=== PATIENT | female | born 1955 | race Caucasian/White ===

== ENCOUNTER 2023-08-07 23:52 | Inpatient (IN) | payer OTHER, SELFPAY ==
[2023-08-07 17:24] VITALS: BMI 27.9
[2023-08-07 17:28] VITALS: BP 188/106
--- NOTE | 2023-08-07 19:14 | ED.GENMED ---
History of Present Illness
General
Chief Complaint: Abdominal Pain
Source: patient
Exam Limitations: none
Time Seen by Provider: 08/07/23 18:46
Travel History
Have you had any contact with someone who has COVID-19?: No
Do you have any symptoms of coronavirus? Fever > 100 degrees, chills, cough, shortness of breath, sore throat, loss of taste or smell, muscle aches, or headache?: No
History of Present Illness
History of Present Illness:
This is a 67 year old female that comes in with c/o abd pain. State that she had a root canal and was on antibiotics. States that at first she was started on Clindamycin and this caused her to have diarrhea. States that she started that on July 24.
Then she was given Amoxicillin on July 29. States that she did stop the antibiotic on Friday. States that she is also on the [place] diet and she eat a replacement bar yesterday and some Crackers with cheese. Today she has diarrhea and it just
continued. States that she has a low grade fever and abd pain. States that her temp was 99.8 at home and she felt cold. States that she was also nauseated. Denies any chest pain, SOB, vomiting, headache, dizziness, urinary burning.
Past History
Past History
ED Past Medical History: Cancer (Skin cancer squamous), HTN and Other (DDD, diverticulitis, osteoarthritis, UTi, Shingles, )
ED Past Surgical History: Gynecological (Tubal ), Orthopedic (right femur repair, Right Total hip replacement ) and Other (Left arm lump removed)
Social History
Tobacco: Former smoker
Alcohol: Daily ( Rum mixed with Diet soda in a 22oz glasses. states that this is about 6oz)
Personal:
Living: with family
Employment: Employed
Family History
Family History: Other (Noncontributory)
Review of Systems
Review of Systems
All Other Systems: ROS reviewed and negative except as documented in HPI and ROS
Constitutional: Reports fever; Denies chills
EENT: Reports no symptoms
Respiratory: Reports no symptoms; Denies cough or trouble breathing
Cardiac: Reports no symptoms; Denies chest pain
ABD/GI: Reports abdominal pain, nausea and diarrhea; Denies vomiting
: Reports no symptoms; Denies dysuria, frequency or urgency
Musculoskeletal: Reports no symptoms
Skin: Reports no symptoms
Neurological: Reports no symptoms; Denies dizzy or headache
Psychiatric: Reports no symptoms
Phy Exam
General Physical Exam
General Presentation: well appearing and no apparent distress
General age: appears stated age
General Skin: warm and dry
General Habitus: normal
General Mental: alert
General Hydration: appears well hydrated
ENT Exam
ENT Exam: TM's normal, pharynx normal and neck supple
Eye Exam
Eye Exam: EOMI
Cardiovascular Exam
Cardiovascular Exam: regular rate/rhythm, no edema, no murmur and normal peripheral pulses
Pulmonary Exam
Pulmonary Exam: lungs clear, no respiratory distress, no rales, chest non tender, no crackles, no rhonchi, no wheezing and no cough
Gastrointestinal Exam
Gastrointestinal Exam: normal bowel sounds, soft, no organomegaly, no pulsatile mass, non distended and tender (Left lower abd tenderness with palpation)
Musculoskeletal Exam
Musculoskeletal Exam: no edema
Skin Exam
Skin Exam: normal color, warm/dry, no rash and no petechia
Psychiatric Exam
Psychiatric Exam: normal mood/affect
Course
Orders/Labs/Results
Orders:
Orders
08/07/23 17:32
EKG [Electrocardiogram (*1)] Urgent
Reason for Study: Tachycardia
EKG- Treatment ONCE
08/07/23 19:13
CT Abd/pelvis W Iv Cont Urgent
Comment:
Reason For Exam: Left sided abd pain
08/07/23 19:14
0.9% Sodium Chloride 500 ml [Nss] 500 ml IV BOLUS
08/07/23 19:35
Complete Blood Count/With Diff Urgent
Comprehensive Metabolic Panel Urgent
08/07/23 19:37
STOOL [C difficile Antigen & Toxins] Urgent
GENNA Source: Feces/Stool
Specimen Description:
Date Specimen was Collected: 08/07/23
Time Specimen was Collected: 19:36
Stool Culture Urgent
GENNA Source: Feces/Stool
Specimen Description:
Date Specimen was Collected: 08/07/23
Time Specimen was Collected: 19:36
Stool For WBC Urgent
GENNA Source: Feces/Stool
Specimen Description:
Date Specimen was Collected: 08/07/23
Time Specimen was Collected: 19:36
Abnormal Lab Results
08/07/23
19:35
WBC 16.3 H 10^3/uL
(4.8-10.8)
RBC 3.67 L 10^6/uL
(4.20-5.40)
Hct 34.2 L %
(37.0-47.0)
MCH 33.5 H pg
(27.0-31.0)
Abs Immat Gran (auto) 0.1 H 10^3/uL
(0-0.05)
Absolute Neuts (auto) 15.1 H 10^3/uL
(1.4-6.5)
Absolute Lymphs (auto) 0.6 L 10^3/uL
(1.2-3.4)
Neutrophils % 92.5 H %
(42.2-75.2)
Lymphocytes % 3.4 L %
(20.5-51.1)
Sodium 130 L mmol/L
(135-145)
Chloride 94 L mmol/L
(98-107)
Creatinine 0.5 L mg/dL
(0.6-1.0)
Glucose 118 H mg/dl
(70-99)
Calcium 11.0 H mg/dl
(8.4-10.2)
AST 51 H U/L
(14-36)
ALT 77 H U/L
(0-35)
08/07/23 19:35
08/07/23 19:35
Leukocytosis, H/h slightly low. Sodium low. Chloride low. glucose nonfasting. Calcium slightly elevated. AST/ALT elevation. Stool positive for C-diff
Vital Signs
Initial and Last Documented VS:
Initial Vital Signs
Temp Pulse Resp BP Pulse Ox
99.4 F 129 20 188/106 97
08/07/23 17:28 08/07/23 17:28 08/07/23 17:28 08/07/23 17:28 08/07/23 17:28
Last Documented Vital Signs
Temp Pulse Resp BP Pulse Ox
99.4 F 129 20 188/106 97
08/07/23 17:28 08/07/23 17:28 08/07/23 17:28 08/07/23 17:28 08/07/23 17:28
MDM/Problems Addressed
Differential Diagnosis Includes:
diverticulitis, Colitis, reaction to antibiotics, C-diff
MDM/Problems Addressed:
This is a 67 year old female that comes in with c/o abd pain. States that she was on antibiotic and then today she started with abd pain, diarrhea and a low grade fever.
Will get labs and CT scan. will give IV fluids.
Back into see patient. Explained that her WBC are elevated and that she does have C-diff. Her CT also shows that there may also be some acute diverticulitis in the sigmoid colon. Will admit patient for further treatment. Hospitalist notified.
Chronic conditions affecting care:
history of Diverticulitis
Acute Exacerbation and/or Progression of Chronic Illness:
NA
*Radiology
Radiology exam reviewed: radiology read reviewed (CT- Extensive colonic diverticulosis. Possible minimal superimposed acute diverticulitis with some faint fat stranding about the mid sigmoid colon)
*Pulse Oximetry
Patient hypoxic: no
*EKG
Interpreted by ED Provider?: Yes
Heart Rate: 121
Rate: tachycardiac
Rhythm: sinus
[place]: normal axis
Interval: normal interval
QRS Pattern: normal QRS
Ischemia: no ischemia
*Vessel Manager Interpretation
Rate: Vessel Manager- N/A
*Critical Care Note
Total Time (30-74mins, 75-104mins- exclusive of procedures): Not Applicable
ED Attending Note
-
Portions of this chart may have been created with voice recognition software.� Occasional wrong word or��sound alike� substitutions may have occurred due to the inherent limitations of voice recognition software.
Discharge Plan
Departure
Patient Disposition: Admit
Date of Disposition: 08/07/23
Time of Disposition: 22:48
Admit to: Med/Surg
Presentation/result/management discussed w/ accepting MD/DO: Hospitalist
Patient with high blood pressure during this ER visit?: Yes
Condition: Good
Covid-19: Not Applicable
Discharge Problem:
Abdominal pain, C-diff, possible Diverticulitis
Prescriptions:
No Action
ibuprofen 400 MG tablet
400 mg PO Q6HPRN PRN (Reason: pain)
levofloxacin 500 MG tablet
500 mg PO DAILY Qty: 9 0RF
metronidazole 500 MG tablet
500 mg PO TID Qty: 29 0RF
losartan 100 MG tablet
100 mg PO DAILY
Referrals:
Gonzalez Kwon MD [Family Provider] -
Interventions
Interventions:
*Risk Screen - Suicide Last Done: 08/07/23 17:28
*General Assessment Last Done: 08/07/23 17:28
*Neglect/Abuse Screening Last Done: 08/07/23 17:28
Discharge Date and Time
Print Language: FRENCH
[2023-08-07] MEDS: NSS 500 IV (19:36)
[2023-08-07 19:48] LABS: % Basophils 0.3 % (0-2); % Eosinophils 0.1 % (0-6); % Immature Granulocytes 0.4 % (0-0.5); % Lymphocytes 3.4 % (20.5-51.1); % Monocytes 3.3 % (1.7-9.3); % Neutrophils 92.5 % (42.2-75.2); Absolute Basophils 0.1 10^3/uL (0-0.2); Absolute Immature Granulocytes 0.1 10^3/uL (0-0.05); Absolute Lymphocytes 0.6 10^3/uL (1.2-3.4); Absolute Monocytes 0.5 10^3/uL (0.1-0.6); Absolute Neutrophils 15.1 10^3/uL (1.4-6.5); Hematocrit 34.2 % (37.0-47.0); Hemoglobin 12.3 g/dL (12.0-16.0); Mean Corpuscular Hgb 33.5 pg (27.0-31.0); Mean Corpuscular Volume 93.2 fL (81.0-99.0); Mean Platelet Volume 10.1 fL (7.4-10.4); Nucleated Red Blood Cells % 0 %; Platelet Count 200 10^3/uL (130-400); Red Blood Cell Count 3.67 10^6/uL (4.20-5.40); Red Cell Dist. Width 12.2 % (11.5-14.5); White Blood Cell Count 16.3 10^3/uL (4.8-10.8)
[2023-08-07 20:02] LABS: ALT (SGPT) 77 U/L (0-35); AST (SGOT) 51 U/L (14-36); Albumin 4.8 g/dl (3.5-5.0); Alkaline Phosphatase 60 U/L (38-126); Blood Urea Nitrogen 9 mg/dl (7-17); Carbon Dioxide 22 mmol/L (22-30); Chloride 94 mmol/L (98-107); Estimated Creatinine Clearance 93 ml/min; Glucose 118 mg/dl (70-99); Potassium 4.2 mmol/L (3.5-5.1); Sodium 130 mmol/L (135-145); Total Bilirubin 0.8 mg/dl (0.2-1.3); Total Protein 7.5 g/dl (6.3-8.2); eGFR > 60.00
[2023-08-07 20:15] VITALS: BP 176/87
[2023-08-07] MEDS: FIRVANQ 125 MG PO (23:39)
--- NOTE | 2023-08-07 23:54 | HPS.HSE ---
Family Physician
-
Family Physician: Gonzalez Kwon
Chief Complaint
-
Diarrhea
History of Present Illness
Patient is 67 years old female history of hypertension, diverticular disease, DJD, presented to the hospital with diarrhea. Patient had a root canal back in June and she was placed on antibiotics initially with clindamycin that she took from July 24
until July 28 and she had to stop the antibiotics because she developed diarrhea. She was then placed on amoxicillin from July 29 through August 02. Patient tells me she tolerated the last antibiotic well. She is on Atkins diet and she took some
macadamia bar and some candy and start developing diarrhea again associated with abdominal pain crampy in nature and diffuse. Watery mucousy diarrhea multiple times throughout the day. She also had some nausea and dry heaves. No fevers or chills.
No chest pain or shortness of breath. Here in the ER white blood cell count of 16, creatinine 0.5, sodium 130, and C. difficile positive. She had a CT scan that shows diverticulosis and possible minimal superimposed diverticulitis with some
stranding about the mid sigmoid colon. She was referred to hospitalist for further evaluation.
Medical History
Past Medical History
Past Medical History: Reports Other (Hypertension, osteoarthritis, diverticular disease, skin cancer in the past for squamous, shingles, UTI in the past.)
Past Surgical History: Reports Other (Tubal ligation, right femur repair, right total hip replacement, left arm lump removed.)
Social History
Tobacco: Former Smoker
Alcohol: Daily (She drinks rum every day and a 22 ounces glasses but she tells me she drinks about 4 glasses every day.)
Drug: None
Family History
Family History: Not pertinent
Allergies / Home Medications
Allergies reflects when Allergies were last updated in [employer].
Home Medications with original date entered in [employer]
Allergy/Medication List:
Allergies
Allergy/AdvReac Type Severity Reaction Status Date / Time
cephalexin [From Keflex] Allergy Rash Verified 08/07/23 17:32
clindamycin Allergy diarrhea Verified 08/07/23 22:48
venom-honey bee Allergy Swelling Verified 08/07/23 17:32
[bee venom (honey bee)]
Home Medications
losartan 100 mg tablet 100 mg PO DAILY 07/12/20
ibuprofen 200 mg capsule 400 mg PO Q6H PRN mild pain 08/07/23
Review of Systems
-
A 12 point ROS was completed and negative except as noted: Yes
Physical Exam
Vital Signs
Vital Signs
Temp Pulse Resp BP Pulse Ox
99.4 F 129 20 188/106 97
08/07/23 17:28 08/07/23 17:28 08/07/23 17:28 08/07/23 17:28 08/07/23 17:28
Physical exam:
General: Acutely ill but nontoxic
HEENT: Normocephalic, Atraumatic and dry mucous Membranes
Respiratory: Clear to Auscultation; Negative Wheezes, Rales or Rhonchi
Cardiac: Regular Rhythm and S1/S2
GI: Soft, Nontender and Nondistended
Musculoskeletal: No Clubbing, No Cyanosis and No Edema
Neuro: Awake, Alert and Oriented
Psych: Calm
Physical Exam
General: Other
Laboratory Results
-
08/07/23 19:35
08/07/23 19:35
Laboratory Results
Total Bilirubin 0.8 mg/dl (0.2-1.3) 08/07/23 19:35
AST 51 U/L (14-36) H 08/07/23 19:35
ALT 77 U/L (0-35) H 08/07/23 19:35
Alkaline Phosphatase 60 U/L (38-126) 08/07/23 19:35
Data Reviewed
-
CT Scan: Image Personally Visualized and interpreted
Lab Data: Labs Reviewed by me
Impression/Plan
-
IMPRESSION:
Patient is 67 years old female came into the hospital with acute diarrhea, C. difficile colitis. Patient had exposure to antibiotics prior to presentation. She needs to be in the hospital otherwise at increased risk of sepsis, worsening colitis,
and needs to be managed and monitored in the hospital.
PLAN:
C. difficile colitis:
Start oral vancomycin 125 mg every 6 hours
Monitor WBC trend
Monitor renal function
IV fluids
Possible diverticulitis:
Patient is concerned about starting other antibiotics such as IV ceftriaxone and Flagyl so hold off for now.
She understands that if leukocytosis worsens or if she exhibits pain or signs of toxicity, we will initiate more broad-spectrum antibiotics for short course.
Hyponatremia:
Most likely volume depleted related
IV fluids
Monitor sodium in a.m.
Mild hypercalcemia:
Monitor trend after IV fluids
Workup only if it would not trend down as expected
Mild elevated liver function test:
Trend in a.m.
Hypertension:
Labetalol 10 mg IV x 1
IV hydralazine as needed
Continue home doses of losartan 100 mg daily
Monitor blood pressure and adjust medications accordingly
Alcohol use disorder:
Start MSA protocol
Monitor behavior mental status and signs of withdrawal
DVT prophylaxis:
Lovenox 40 mg SQ daily
CODE STATUS:
Full code
Time spent: 75 minutes
[2023-08-08] MEDS: THIAMINE INJECTION 200 MG IV ×3 (00:24→20:25)
[2023-08-08] MEDS: TRANDATE 10 MG IV (00:25)
[2023-08-08 01:05] VITALS: BMI 27.1
[2023-08-08 01:14] VITALS: BP 172/90
[2023-08-08] MEDS: NSS 1000 IV ×3 (01:40→23:45)
--- NOTE | 2023-08-08 02:00 | TRANSFER ---
Pt admitted from ED to room 432. AAO x3. VSS. Pt walked from stretcher to bed with no assistance. Pt oriented to room and call smith placed within reach.
[2023-08-08] MEDS: FIRVANQ 125 MG PO ×4 (05:35→23:45)
[2023-08-08 07:30] VITALS: BP 175/91
--- NOTE | 2023-08-08 08:17 | W.PN.HOSP.TC ---
Today's Communication/Plan
-
see AP
Assessment / Plan
Assessment / Plan
HPI: 67 years old female history of hypertension, diverticular disease, DJD, presented to the hospital with diarrhea. Patient had a root canal back in June and she was placed on antibiotics initially with clindamycin that she took from July 24 until
July 28 and she had to stop the antibiotics because she developed diarrhea. She was then placed on amoxicillin from July 29 through August 02. Patient tells me she tolerated the last antibiotic well.
She is on Atkins diet and she took some macadamia bar and some candy and start developing diarrhea again associated with abdominal pain crampy in nature and diffuse. Watery mucousy diarrhea multiple times throughout the day. She also had some
nausea and dry heaves. No fevers or chills. No chest pain or shortness of breath.
In the ER, white blood cell count of 16, creatinine 0.5, sodium 130, and C. difficile positive.
She had a CT scan that shows diverticulosis and possible minimal superimposed diverticulitis with some stranding about the mid sigmoid colon. She was referred to hospitalist for further evaluation.
CT AP:
Extensive colonic diverticulosis. Possible minimal superimposed acute diverticulitis with some faint fat stranding about the mid sigmoid colon.
A/P:
# Sepsis POA due to C. difficile colitis
Started oral vancomycin 125 mg every 6 hours, cont for now
Monitor WBC trend
Monitor renal function
Cont IV fluids
Cont Full liquid diet and ADAT
Check blood Cx, follow stool culture that was sent, can Norovirus to r/o
# Possible diverticulitis
Patient is concerned about starting other antibiotics such as IV ceftriaxone and Flagyl, so hold off for now.
Monitor symptoms on PO vancomycin for now, if worsening, then may consider IV Abx to cover for possible diverticulitis
# Hyponatremia, most likely volume depleted related
IV fluids
Monitor sodium
# Mild hypercalcemia, most likely volume depleted related
Monitor trend after IV fluids
Workup only if it would not trend down as expected
# Mild elevated liver function test:
Trend
# Essential Hypertension
Labetalol 10 mg IV x 1
Continue home doses of losartan 100 mg daily
IV hydralazine as needed
Monitor blood pressure and adjust medications accordingly
# Alcohol use disorder:
Cont MSA protocol
Monitor behavior mental status and signs of withdrawal
DVT prophylaxis: Lovenox 40 mg SQ daily
CODE STATUS: Full code
DW RN
Anticipated Discharge: > 48 hours
Subjective/Interval History
-
Date of Service: August 08, 2023
Objective Data
-
Labs:
Laboratory Results
08/08/23
06:00
WBC Pending
Hgb Pending
Hct Pending
Plt Count Pending
Sodium Pending
Potassium Pending
Chloride Pending
Carbon Dioxide Pending
BUN Pending
Creatinine Pending
Glucose Pending
Calcium Pending
Total Bilirubin Pending
AST Pending
ALT Pending
Alkaline Phosphatase Pending
Vital Signs:
Vital Signs
Temp Pulse Resp BP Pulse Ox
37.4 C 100 20 172/90 97
08/07/23 17:28 08/08/23 01:14 08/08/23 01:14 08/08/23 01:14 08/08/23 01:14
Review of Systems
-
Abdomen/GI: Reports Diarrhea (watery diarrhea)
Physical Exam
-
General: Well Developed, Well Nourished, No Apparent Distress, Comfortable and Conversant; Negative Respiratory Distress
HEENT: Normocephalic, Atraumatic, Nose Appears Normal and Ears Appear Normal; Negative Oxygen
Respiratory: Clear to Auscultation and Non Labored Respirations; Negative Accessory Resp Muscle Use
Cardiac: Regular Rhythm and S1/S2
GI: Soft, Nontender, Nondistended and Normal Bowel Sounds
Skin: Warm and Dry
Neuro: Awake, Alert, Oriented, AO x 3 and Nonfocal/Grossly Intact
Psych: Calm and Intact Judgement/Insight
Data Reviewed
-
CT Scan: Report Reviewed by me
Labs: Labs Reviewed by me
[2023-08-08] MEDS: FOLVITE 1 MG PO (08:42)
[2023-08-08] MEDS: COZAAR 100 MG PO (08:42)
[2023-08-08] MEDS: MOTRIN 200 MG PO (08:43)
[2023-08-08 08:55] VITALS: BP 175/91
[2023-08-08 09:31] VITALS: BP 160/87
[2023-08-08 10:04] LABS: ALT (SGPT) 53 U/L (0-35); AST (SGOT) 32 U/L (14-36); Alkaline Phosphatase 56 U/L (38-126); Blood Urea Nitrogen 6 mg/dl (7-17); Calcium 9.3 mg/dl (8.4-10.2); Carbon Dioxide 23 mmol/L (22-30); Chloride 94 mmol/L (98-107); Direct Bilirubin 0.3 mg/dl (0.0-0.4); Estimated Creatinine Clearance 82 ml/min; Glucose 127 mg/dl (70-99); Potassium 3.7 mmol/L (3.5-5.1); Sodium 128 mmol/L (135-145); Total Bilirubin 0.5 mg/dl (0.2-1.3); Total Protein 6.5 g/dl (6.3-8.2); eGFR > 60.00
--- NOTE | 2023-08-08 14:08 | CM ---
Patient seen at bedside. Patient stated that she lives with her in a 2 story home. Patient has no DME and her PCP is Dr. Kwon, Patient uses the [facility] on [address] in [place]. Patient stated that she does not have any problems with
alcohol and does not need any supports for treatment. Patient plan is for discharge home with no needs.
Plan; home with no needs anticipated.
[2023-08-08] MEDS: MOTRIN 400 MG PO ×2 (14:54→21:13)
[2023-08-08 15:26] VITALS: BP 138/68
[2023-08-08] MEDS: LOVENOX 40 MG SC (17:41)
[2023-08-08 23:25] VITALS: BP 126/91
[2023-08-09 00:25] VITALS: BP 126/91
[2023-08-09] MEDS: HYDROCORTISONE 1% CREAM 1 APPLIC TOPICAL (03:40)
[2023-08-09] MEDS: MOTRIN 400 MG PO ×2 (03:41→10:34)
[2023-08-09] MEDS: FIRVANQ 125 MG PO ×3 (05:22→18:57)
[2023-08-09 06:18] LABS: % Basophils 0.4 % (0-2); % Eosinophils 1.9 % (0-6); % Immature Granulocytes 0.7 % (0-0.5); % Lymphocytes 9.7 % (20.5-51.1); % Monocytes 4.4 % (1.7-9.3); % Neutrophils 82.9 % (42.2-75.2); Absolute Eosinophils 0.2 10^3/uL (0-0.7); Absolute Immature Granulocytes 0.1 10^3/uL (0-0.05); Absolute Monocytes 0.4 10^3/uL (0.1-0.6); Absolute Neutrophils 8.2 10^3/uL (1.4-6.5); Mean Corp Hgb Conc. 34.5 g/dL (33.0-37.0); Mean Corpuscular Volume 95.7 fL (81.0-99.0); Mean Platelet Volume 10.6 fL (7.4-10.4); Nucleated Red Blood Cells % 0 %; Platelet Count 154 10^3/uL (130-400); Red Blood Cell Count 3.03 10^6/uL (4.20-5.40); Red Cell Dist. Width 12.5 % (11.5-14.5); White Blood Cell Count 9.9 10^3/uL (4.8-10.8)
[2023-08-09 06:33] LABS: ALT (SGPT) 36 U/L (0-35); AST (SGOT) 26 U/L (14-36); Alkaline Phosphatase 51 U/L (38-126); Blood Urea Nitrogen 3 mg/dl (7-17); Calcium 8.3 mg/dl (8.4-10.2); Carbon Dioxide 22 mmol/L (22-30); Chloride 103 mmol/L (98-107); Estimated Creatinine Clearance 82 ml/min; Glucose 94 mg/dl (70-99); Potassium 3.4 mmol/L (3.5-5.1); Sodium 134 mmol/L (135-145); Total Bilirubin 0.3 mg/dl (0.2-1.3); Total Protein 5.4 g/dl (6.3-8.2); eGFR > 60.00
[2023-08-09] MEDS: FOLVITE 1 MG PO (07:50)
[2023-08-09] MEDS: COZAAR 100 MG PO (07:50)
[2023-08-09] MEDS: KCL 270 MEQ IV (07:52)
[2023-08-09 07:53] LABS: Magnesium 1.4 mg/dl (1.6-2.3)
[2023-08-09] MEDS: THIAMINE INJECTION 200 MG IV ×2 (07:53→20:36)
[2023-08-09 07:55] VITALS: BP 144/84
--- NOTE | 2023-08-09 07:56 | W.PN.HOSP.TC ---
Today's Communication/Plan
-
see A/P
Assessment / Plan
Assessment / Plan
HPI: 67 years old female history of hypertension, diverticular disease, DJD, presented to the hospital with diarrhea. Patient had a root canal back in June and she was placed on antibiotics initially with clindamycin that she took from July 24 until
July 28 and she had to stop the antibiotics because she developed diarrhea. She was then placed on amoxicillin from July 29 through August 02. Patient tells me she tolerated the last antibiotic well.
She is on Atkins diet and she took some macadamia bar and some candy and start developing diarrhea again associated with abdominal pain crampy in nature and diffuse. Watery mucousy diarrhea multiple times throughout the day. She also had some
nausea and dry heaves. No fevers or chills. No chest pain or shortness of breath.
In the ER, white blood cell count of 16, creatinine 0.5, sodium 130, and C. difficile positive.
She had a CT scan that shows diverticulosis and possible minimal superimposed diverticulitis with some stranding about the mid sigmoid colon. She was referred to hospitalist for further evaluation.
CT AP:
Extensive colonic diverticulosis. Possible minimal superimposed acute diverticulitis with some faint fat stranding about the mid sigmoid colon.
A/P:
# Sepsis POA due to C. difficile colitis
# first episode of C. diff colitis
Cont oral vancomycin 125 mg every 6 hours
Leucocytosis has resolved, clinically improving with more formed stool
Advance diet from Full liquid to low cholesterol
Follow blood Cx and stool culture that were sent
# Hypokalemia
# hypomagnesemia
replete lytes
# Less likely diverticulitis although suggested on CT AP
# h/o recurrent diverticulitis
GI symptoms improving on PO vancomycin targeting C diff
recc to follow up outpt GI for C scope eval due to h/o recurrent diverticulitis
# Hyponatremia, most likely volume depleted related, improving
Monitor sodium
# Mild hypercalcemia 2/2 volume depletion, resolved
# Mild elevated liver function test, improving
Trend
# Essential Hypertension
Labetalol 10 mg IV x 1
Continue home doses of losartan 100 mg daily
IV hydralazine as needed
Monitor blood pressure and adjust medications accordingly
# Alcohol use disorder
Cont MSA protocol
Monitor behavior mental status and signs of withdrawal
DVT prophylaxis: Lovenox 40 mg SQ daily
CODE STATUS: Full code
Anticipated Discharge: 24 - 48 hours
Subjective/Interval History
-
Date of Service: August 09, 2023
Objective Data
-
Labs:
Laboratory Results
08/09/23
04:59
WBC 9.9
Hgb 10.0 L
Hct 29.0 L
Plt Count 154 D
Sodium 134 L
Potassium 3.4 L
Chloride 103
Carbon Dioxide 22
BUN 3 L
Creatinine 0.5 L
Glucose 94
Calcium 8.3 L
Total Bilirubin 0.3
AST 26
ALT 36 H
Alkaline Phosphatase 51
Vital Signs:
Vital Signs
Temp Pulse Resp BP Pulse Ox
37.6 C 95 18 126/91 95
08/08/23 23:25 08/08/23 23:25 08/08/23 23:25 08/08/23 23:25 08/08/23 23:25
I&O
08/08/23 08/09/23 08/10/23
06:59 06:59 06:59
Intake Total 840 / 840
Balance 840 / 840
Review of Systems
-
Abdomen/GI: Reports Diarrhea (stool more formed, now pudding like )
Physical Exam
-
General: Well Developed, Well Nourished, No Apparent Distress, Comfortable and Conversant; Negative Respiratory Distress
HEENT: Normocephalic, Atraumatic, Nose Appears Normal and Ears Appear Normal; Negative Oxygen
Respiratory: Clear to Auscultation and Non Labored Respirations; Negative Accessory Resp Muscle Use
Cardiac: Regular Rhythm and S1/S2
GI: Soft, Nontender, Nondistended and Normal Bowel Sounds
Skin: Warm and Dry
Neuro: Awake, Alert, Oriented, AO x 3 and Nonfocal/Grossly Intact
Psych: Calm and Intact Judgement/Insight
Data Reviewed
-
CT Scan: Report Reviewed by me
Labs: Labs Reviewed by me
--- NOTE | 2023-08-09 08:05 | PTCARENOTE ---
pt aox3, denies anciety. says she slept well. satates that abd craping continues, stool is less loose and appears o be ore formed. pt olerating full liq diet tis am. see mar. pt resting
[2023-08-09] MEDS: REFRESH EYE DROPS (PF) 1 DROPS OPHTH (11:33)
[2023-08-09] MEDS: ZYRTEC 10 MG PO (11:33)
[2023-08-09] MEDS: MAGNESIUM SULFATE 50 IV (11:45)
--- NOTE | 2023-08-09 13:03 | PTCARENOTE ---
pt itchy le, right eye with puffy, appears to be fluid filled sac under right eye. warm compress given for eye. md trejo aware, zyrtec and prednisone ordered by . pt resting
[2023-08-09] MEDS: NSS IV (14:28)
[2023-08-09 15:50] VITALS: BP 141/68
[2023-08-09] MEDS: LOVENOX 40 MG SC (18:17)
[2023-08-09] MEDS: REFRESH EYE DROPS (PF) OPHTH ×2 (18:21→22:25)
[2023-08-09 23:00] VITALS: BP 139/72
[2023-08-10] MEDS: FIRVANQ 125 MG PO ×2 (00:05→05:43)
[2023-08-10 06:31] LABS: % Basophils 0.4 % (0-2); % Eosinophils 2.6 % (0-6); % Immature Granulocytes 0.5 % (0-0.5); % Lymphocytes 15.9 % (20.5-51.1); % Monocytes 6.7 % (1.7-9.3); % Neutrophils 73.9 % (42.2-75.2); Absolute Eosinophils 0.2 10^3/uL (0-0.7); Absolute Lymphocytes 1.2 10^3/uL (1.2-3.4); Absolute Monocytes 0.5 10^3/uL (0.1-0.6); Absolute Neutrophils 5.7 10^3/uL (1.4-6.5); Hematocrit 29.7 % (37.0-47.0); Hemoglobin 10.5 g/dL (12.0-16.0); Mean Corp Hgb Conc. 35.4 g/dL (33.0-37.0); Mean Corpuscular Hgb 33.3 pg (27.0-31.0); Mean Corpuscular Volume 94.3 fL (81.0-99.0); Mean Platelet Volume 10.4 fL (7.4-10.4); Nucleated Red Blood Cells % 0 %; Platelet Count 192 10^3/uL (130-400); Red Blood Cell Count 3.15 10^6/uL (4.20-5.40); Red Cell Dist. Width 12.4 % (11.5-14.5); White Blood Cell Count 7.7 10^3/uL (4.8-10.8)
[2023-08-10 07:00] VITALS: BP 159/80
[2023-08-10 07:06] LABS: ALT (SGPT) 37 U/L (0-35); AST (SGOT) 29 U/L (14-36); Albumin 3.4 g/dl (3.5-5.0); Alkaline Phosphatase 54 U/L (38-126); Blood Urea Nitrogen 3 mg/dl (7-17); Calcium 8.7 mg/dl (8.4-10.2); Carbon Dioxide 25 mmol/L (22-30); Chloride 104 mmol/L (98-107); Estimated Creatinine Clearance 82 ml/min; Glucose 98 mg/dl (70-99); Magnesium 1.9 mg/dl (1.6-2.3); Potassium 3.9 mmol/L (3.5-5.1); Sodium 135 mmol/L (135-145); Total Bilirubin 0.3 mg/dl (0.2-1.3); Total Protein 5.9 g/dl (6.3-8.2); eGFR > 60.00
[2023-08-10] MEDS: COZAAR 100 MG PO (08:31)
[2023-08-10] MEDS: FOLVITE 1 MG PO (08:34)
[2023-08-10] MEDS: ZYRTEC PO (08:34)
[2023-08-10] MEDS: THIAMINE INJECTION 200 MG IV (08:35)
[2023-08-10] MEDS: REFRESH EYE DROPS (PF) OPHTH (08:35)
[2023-08-10] MEDS: MOTRIN 400 MG PO (08:39)
--- NOTE | 2023-08-10 10:01 | W.PN.HOSP.TC ---
Addendum entered and electronically signed by Najma Palomares MD 08/10/23 15:32:
total DC time 35 min
Original Note:
Today's Communication/Plan
-
DC home
Assessment / Plan
Assessment / Plan
HPI: 67 years old female history of hypertension, diverticular disease, DJD, presented to the hospital with diarrhea. Patient had a root canal back in June and she was placed on antibiotics initially with clindamycin that she took from July 24 until
July 28 and she had to stop the antibiotics because she developed diarrhea. She was then placed on amoxicillin from July 29 through August 02. Patient tells me she tolerated the last antibiotic well.
She is on Atkins diet and she took some macadamia bar and some candy and start developing diarrhea again associated with abdominal pain crampy in nature and diffuse. Watery mucousy diarrhea multiple times throughout the day. She also had some
nausea and dry heaves. No fevers or chills. No chest pain or shortness of breath.
In the ER, white blood cell count of 16, creatinine 0.5, sodium 130, and C. difficile positive.
She had a CT scan that shows diverticulosis and possible minimal superimposed diverticulitis with some stranding about the mid sigmoid colon. She was referred to hospitalist for further evaluation.
CT AP:
Extensive colonic diverticulosis. Possible minimal superimposed acute diverticulitis with some faint fat stranding about the mid sigmoid colon.
A/P:
# Sepsis POA due to C. difficile colitis
# first episode of C. diff colitis
Cont oral vancomycin 125 mg every 6 hours for 10 days total
Leucocytosis has resolved, clinically improving with more formed stool
Advance diet to solid and pt tolerated well
blood Cx, stool culture so far negative (Shiga toxin pending, but do not anticipate it would turn positive)
# Hypokalemia
# hypomagnesemia
repleted lytes
# Less likely diverticulitis although suggested on CT AP
# h/o recurrent diverticulitis
GI symptoms improving on PO vancomycin targeting C diff
recc to follow up outpt GI for C scope eval due to h/o recurrent diverticulitis
# Hyponatremia, most likely volume depleted related, resolved
# Mild hypercalcemia 2/2 volume depletion, resolved
# Mild elevated liver function test, improving
Trend
# Essential Hypertension
Labetalol 10 mg IV x 1
Continue home doses of losartan 100 mg daily
IV hydralazine as needed
Monitor blood pressure and adjust medications accordingly
# Alcohol use disorder
Cont MSA protocol
Monitor behavior mental status and signs of withdrawal
DVT prophylaxis: Lovenox 40 mg SQ daily
CODE STATUS: Full code
Anticipated Discharge: Today
Subjective/Interval History
-
Date of Service: August 10, 2023
Objective Data
-
Labs:
Laboratory Results
08/10/23
05:53
WBC 7.7
Hgb 10.5 L
Hct 29.7 L
Plt Count 192 D
Sodium 135
Potassium 3.9
Chloride 104
Carbon Dioxide 25
BUN 3 L
Creatinine 0.5 L
Glucose 98
Calcium 8.7
Total Bilirubin 0.3
AST 29
ALT 37 H
Alkaline Phosphatase 54
Vital Signs:
Vital Signs
Temp Pulse Resp BP Pulse Ox
36.8 C 76 16 159/80 97
08/10/23 07:00 08/10/23 07:00 08/10/23 07:00 08/10/23 07:00 08/10/23 08:20
I&O
08/09/23 08/10/23 08/11/23
06:59 06:59 06:59
Intake Total 840 / 840 1480 / 1480
Balance 840 / 840 1480 / 1480
--- NOTE | 2023-08-10 10:34 | CM ---
Chart reviewed and plan is to home today, no needs, patient has declined treatment options for Alcohol use at discharge.
Plan; Home no needs.
[2023-08-10 11:00] VITALS: BP 168/94
--- NOTE | 2023-08-10 15:11 | W.DCSUMMARY ---
Discharge Summary
Discharge Data
Date of Admission: 08/07/23
Date of Discharge: 08/10/23
-
Pending Results: No
Hospital Course
Principal Diagnosis:
Sepsis due to C. difficile colitis
Mild elevated liver function test, improving
Hypokalemia and hypomagnesemia due to diarrhea
Hyponatremia, most likely volume depleted related, resolved
Mild hypercalcemia due to volume depletion, resolved
Chronic Diagnoses:�
Essential Hypertension
Alcohol use disorder
History of recurrent diverticulitis
Consultations:�
None
Procedures:�
None
Clinical course:�
This is a 67 years old female with past medical history as stated above, who was recently exposed to oral antibiotic for root canal procedure, and developed diarrhea.
Problem 1:
Sepsis due to C. difficile colitis.
This is her first episode of C. difficile colitis.
She was started with oral vancomycin 125 mg every 6 hours which she can continue for a total of 10 days (discharged for 7 more days).
She has clinically improved with more formed stools while in the hospital.
Her diet was advanced to solid and she tolerated well.
As for the rest of her medical problems, they were stable during her hospital stay.
Discharge Plan
-
Patient Disposition: Home (Routine Discharge)
Discharge Diagnosis/Procedures: Sepsis due to C. difficile colitis (first episode of C. diff colitis); Mildly elevated liver function test likely due to sepsis (improved)
Condition: Good
Diet: As tolerated
Activity: As tolerated
Driving Restrictions: As prior to admission
Blood Work: LFT in 1 week, result to your PCP
Activity Restrictions/Additional Instructions:
Follow up with GI doctor for C scope zaneal for your history of recurrent diverticulitis
Referrals:
Gonzalez Kwon MD [Family Provider] - in less than 1 week
Additional Discharge Medication Instructions: Continue
Prescriptions:
New
vancomycin 125 mg capsule
125 mg PO Q6H 7 Days Qty: 28 0RF
Continued
losartan 100 MG tablet
100 mg PO DAILY
ibuprofen 200 mg Capsule
400 mg PO Q6H PRN (Reason: mild pain)
Discharge Orders:
Discharge Patient (As Directed); Ordered 08/10/23
Ordered By: Najma Palomares
Discharge Date and Time
Discharge Date/Time: 08/10/23 11:35
Print Language: SLOVAK
== END 2023-08-10 11:35 | disposition home or self-care (01) | DRG 872 ==
LOC: 4 WEST ACU 23:52
PROVIDERS: Clinical Nurse Specialist Family Health; ADMITTING PHYSICIAN Hospitalist; ATTENDING PHYSICIAN Internal Medicine; EMERGENCY PHYSICIAN Emergency Medicine; FAMILY PHYSICIAN Internal Medicine
DX: A41.4 Sepsis due to anaerobes (principal); A04.72 Enterocolitis due to Clostridium difficile, not specified as recurrent; E87.1 Hypo-osmolality and hyponatremia; K57.32 Diverticulitis of large intestine without perforation or abscess without bleeding; R79.89 Other specified abnormal findings of blood chemistry; E87.6 Hypokalemia; E83.42 Hypomagnesemia; E83.52 Hypercalcemia; E86.9 Volume depletion, unspecified; I10 Essential (primary) hypertension; F10.10 Alcohol abuse, uncomplicated; M19.90 Unspecified osteoarthritis, unspecified site; Z87.891 Personal history of nicotine dependence
CPT/HCPCS: 74177; 80053; 82248; 83735; 85025; 87040; 87045; 87046; 87077; 87324; 87427; 87449; 87798; 89055; 93005; 96374; 99285; Q9967

== ENCOUNTER 2023-09-06 22:12 | Inpatient (IN) | payer OTHER, SELFPAY ==
[2023-09-06 17:26] VITALS: BP 176/102
[2023-09-06] MEDS: TORADOL 15 MG IV (19:11)
[2023-09-06 19:26] LABS: % Basophils 0.4 % (0-2); % Eosinophils 0.4 % (0-6); % Immature Granulocytes 0.4 % (0-0.5); % Lymphocytes 4.8 % (20.5-51.1); % Monocytes 4.7 % (1.7-9.3); % Neutrophils 89.3 % (42.2-75.2); Absolute Basophils 0.1 10^3/uL (0-0.2); Absolute Eosinophils 0.1 10^3/uL (0-0.7); Absolute Immature Granulocytes 0.1 10^3/uL (0-0.05); Absolute Lymphocytes 0.7 10^3/uL (1.2-3.4); Absolute Monocytes 0.7 10^3/uL (0.1-0.6); Absolute Neutrophils 12.3 10^3/uL (1.4-6.5); Hematocrit 32.4 % (37.0-47.0); Hemoglobin 11.6 g/dL (12.0-16.0); Mean Corp Hgb Conc. 35.8 g/dL (33.0-37.0); Mean Corpuscular Hgb 33.3 pg (27.0-31.0); Mean Corpuscular Volume 93.1 fL (81.0-99.0); Mean Platelet Volume 9.8 fL (7.4-10.4); Nucleated Red Blood Cells % 0 %; Platelet Count 295 10^3/uL (130-400); Red Blood Cell Count 3.48 10^6/uL (4.20-5.40); Red Cell Dist. Width 12.8 % (11.5-14.5); White Blood Cell Count 13.8 10^3/uL (4.8-10.8)
[2023-09-06 19:32] VITALS: BP 149/78
[2023-09-06] MEDS: NSS 500 IV (19:33)
[2023-09-06 19:40] LABS: Lactic Acid 0.6 mmol/L (0.7-2.0)
[2023-09-06 19:41] LABS: ALT (SGPT) 24 U/L (0-35); AST (SGOT) 31 U/L (14-36); Albumin 4.1 g/dl (3.5-5.0); Alkaline Phosphatase 70 U/L (38-126); Blood Urea Nitrogen 9 mg/dl (7-17); Calcium 9.4 mg/dl (8.4-10.2); Carbon Dioxide 21 mmol/L (22-30); Chloride 98 mmol/L (98-107); Glucose 104 mg/dl (70-99); Potassium 4.7 mmol/L (3.5-5.1); Sodium 131 mmol/L (135-145); Total Protein 6.9 g/dl (6.3-8.2); eGFR > 60.00
[2023-09-06 20:02] LABS: Urine Albumin Negative (Neg - Trace); Urine Bilirubin Negative (Negative); Urine Character Clear (Clear); Urine Color Yellow; Urine Glucose Negative (Negative); Urine Ketone 3+ (Negative); Urine Leukocyte Negative (Negative); Urine Nitrite Negative (Negative); Urine Occult Blood Negative (Negative); Urine Specific Gravity 1.015 (<1.030); Urine Urobilinogen Negative (Neg - 1+)
--- NOTE | 2023-09-06 20:46 | ED.GENMED ---
History of Present Illness
General
Chief Complaint: Abdominal Pain
Source: patient
Exam Limitations: none
Time Seen by Provider: 09/06/23 18:01
Nursing documentation reviewed up to this point in time: agreed with
History of Present Illness
History of Present Illness:
67-year-old female past ministry of hypertension, alcohol abuse presenting to the emergency department today with concerns of lower abdominal pain constipation temperature of 101.8 today symptoms worsening over the past few days. Was diagnosed with
C. difficile 1 month ago and took oral vancomycin. Had some improvement after that. Denies any chest pain shortness of breath.
Past History
Past History
ED Past Medical History: Cancer (Skin cancer squamous), HTN and Other (DDD, diverticulitis, osteoarthritis, UTi, Shingles, )
ED Past Surgical History: Gynecological (Tubal ), Orthopedic (right femur repair, Right Total hip replacement ) and Other (Left arm lump removed)
Social History
Tobacco: Former smoker
Alcohol: Daily ( Rum mixed with Diet soda in a 22oz glasses. states that this is about 6oz)
Personal:
Living: with family
Employment: Employed
Family History
Family History: Other (Noncontributory)
Review of Systems
Review of Systems
Allergies reviewed?: Yes
All Other Systems: ROS reviewed and negative except as documented in HPI and ROS
Phy Exam
Physical Exam
Physical Exam:
GENERAL: Alert , in no apparent distress
EYE: pupils equal and reactive
NECK: Supple, no significant adenopathy.
ENT: o/p clr, mmm.
CARDIAC: Regular rate and rhythm .
LUNGS: Clear breath sounds bilaterally, no acute respiratory distress, no wheezes/rales/rhonchi
ABDOMEN: Diffuse lower abdominal pain maximal to left lower quadrant minimal pain to the upper abdomen.
NEUROLOGICAL: Alert and oriented, no focal neuro deficits
SKIN: Warm and dry, skin intact.
MUSCULOSKELETAL: No edema, well perfused.
PSYCH: Normal and appropriate interaction.
Course
Orders/Labs/Results
Orders:
Orders
09/06/23 18:37
0.9% Sodium Chloride 500 ml [Nss] 500 ml IV BOLUS
Ketorolac [Toradol] 15 mg IV NOW STA
09/06/23 18:41
CT Abd/Pel (IV only)-DH only Urgent
Comment:
Reason For Exam: lower abd pain recent divertics/cdiff
09/06/23 18:51
Complete Blood Count/With Diff Urgent
Comprehensive Metabolic Panel Urgent
09/06/23 19:10
Lactic Acid Urgent
09/06/23 19:35
Urinalysis Reflex To Culture Urgent
Date Specimen was Collected: 09/06/23
Time Specimen was Collected: 19:33
09/06/23 21:10
Piperacillin/Tazo 3.375 Gram [Zosyn] 3.375 gram in 50 ml IV NOW
Abnormal Lab Results
09/06/23 09/06/23 09/06/23
18:51 19:10 19:35
WBC 13.8 H 10^3/uL
(4.8-10.8)
RBC 3.48 L 10^6/uL
(4.20-5.40)
Hgb 11.6 L g/dL
(12.0-16.0)
Hct 32.4 L %
(37.0-47.0)
MCH 33.3 H pg
(27.0-31.0)
Abs Immat Gran (auto) 0.1 H 10^3/uL
(0-0.05)
Absolute Neuts (auto) 12.3 H 10^3/uL
(1.4-6.5)
Absolute Lymphs (auto) 0.7 L 10^3/uL
(1.2-3.4)
Absolute Monos (auto) 0.7 H 10^3/uL
(0.1-0.6)
Neutrophils % 89.3 H %
(42.2-75.2)
Lymphocytes % 4.8 L %
(20.5-51.1)
Sodium 131 L mmol/L
(135-145)
Carbon Dioxide 21 L mmol/L
(22-30)
Glucose 104 H mg/dl
(70-99)
Lactic Acid 0.6 L mmol/L
(0.7-2.0)
Urine Ketones 3+ A
(Negative)
09/06/23 18:51
09/06/23 18:51
IMPRESSION:
Distal sigmoid colon diverticulitis with diffuse wall thickening and pericolonic fat stranding affecting the severely diverticular sigmoid colon. A corresponding collection of ill-defined gas and fluid along the inflamed distal sigmoid colon
measures 5.8 x 3.4 cm is most consistent with contained perforation, and is new when compared to prior study. Suggest surgery assessment.
Vital Signs
Initial and Last Documented VS:
Initial Vital Signs
Temp Pulse Resp BP Pulse Ox
100 F 116 18 176/102 98
09/06/23 17:26 09/06/23 17:26 09/06/23 17:26 09/06/23 17:26 09/06/23 17:26
Last Documented Vital Signs
Temp Pulse Resp BP Pulse Ox
100 F 100 16 149/78 97
09/06/23 17:26 09/06/23 19:32 09/06/23 19:32 09/06/23 19:32 09/06/23 19:32
MDM/Problems Addressed
MDM/Problems Addressed:
67-year-old female presenting to the emergency department today with concerns of abdominal pain. Temperature of 101.8 today recently diagnosed with C. difficile a month ago and took a course of oral vancomycin. Upon arrival patient with low-grade
temperature and tachycardic. Labs showing white count of 13.8. Lactic acid is not elevated other labs without emergent findings. CT scan was performed that showed sigmoid diverticulitis with contained perforation. Case discussed with surgery DrJonatan
Janelle recommending IV antibiotics and admission. He will follow-up. Stable throughout ER stay.
*Critical Care Note
Total Time (30-74mins, 75-104mins- exclusive of procedures): Not Applicable
ED Attending Note
-
Portions of this chart may have been created with voice recognition software.� Occasional wrong word or��sound alike� substitutions may have occurred due to the inherent limitations of voice recognition software.
Discharge Plan
Departure
Patient Disposition: Admit
Date of Disposition: 09/06/23
Time of Disposition: 21:30
Admit to: Med/Surg
Admit to doctor: [place]
Presentation/result/management discussed w/ accepting MD/DO: Hospitalist
Patient with high blood pressure during this ER visit?: No
Condition: Good
Covid-19: Not Applicable
Discharge Problem:
Diverticulitis of colon with perforation
Prescriptions:
No Action
losartan 100 MG tablet
100 mg PO DAILY
ibuprofen 200 mg Capsule
400 mg PO Q6H PRN (Reason: mild pain)
vancomycin 125 mg capsule
125 mg PO Q6H 7 Days Qty: 28 0RF
Referrals:
Gonzalez Kwon MD [Family Provider] -
Interventions
Interventions:
*Risk Screen - Suicide Last Done: 09/06/23 21:27
*General Assessment Last Done: 09/06/23 17:26
*Neglect/Abuse Screening Last Done: 09/06/23 21:27
*ED COVID-19 Vaccine History Last Done: 09/06/23 17:26
ID-Qbnhfl-Qgbblgnvdm Assessment Last Done: 09/06/23 18:44
Discharge Date and Time
Print Language: [place]
[2023-09-06] MEDS: ZOSYN 50 IV (21:22)
[2023-09-06 21:27] VITALS: BP 157/82
--- NOTE | 2023-09-06 21:41 | HPS.HSE ---
Family Physician
-
Family Physician: Gonzalez Kwon
Chief Complaint
-
Left lower abdominal pain
History of Present Illness
67-year-old female with known history of hypertension and was in hospital a month ago for C. difficile colitis as a complication of dental infection, since her treatment for C. difficile she does not think she fully recovered patient lower abdominal
discomfort and bloating. Over the last couple days she noticed her discomfort and bloating progressively getting worse to the pain specially today was been intermittent and mostly lower abdominal and an associated with nausea but no vomiting, Admit
for appetite, also some other discomfort she attributed to not having a regular bowel movement since the treatment of C. difficile, she took some prune juice over the last couple of days had a good response specially today had multiple episodes of
soft but not liquid and nonbloody bowel movement.
She was in her pool and when she came out to check her temperature 100 bilateral injected it was more one 1.8. With worsening pain and a fever therefore she decided come to the hospital.
Denies any chest pain or any cough or congestion, no urinary symptoms, denies any relieving aggravating factor of her pain. On radiation, CT abdominal pelvis showed: Distal sigmoid colon diverticulitis with diffuse wall thickening and pericolonic
fat stranding affecting the severely diverticular sigmoid colon. A corresponding collection of ill-defined gas and fluid along the inflamed distal sigmoid colon measures 5.8 x 3.4 cm is most consistent with contained perforation, and is new when
compared to prior study.
Physician discussed colorectal surgeon recommended no intervention needed just antibiotic.
Patient awake, alert and oriented x 3 and all appropriate conversation, her daughter was on the phone as she is a nurse.
Medical History
Past Medical History
Past Medical History: Reports Other
Additional Past Medical History:
Past medical history reviewed:
Hypertension
Recent C. difficile
Recent dental infection
Social history: Lives at home with family. No smoking, drinks couple cocktails nightly, and denies any drug use
Family history: Reviewed and noncontributory
Past Surgical History: Reports Other
Social History
Drug: Other
Living: Other
Family History
Family History: Other
Allergies / Home Medications
Allergies reflects when Allergies were last updated in [facility].
Home Medications with original date entered in [facility]
Allergy/Medication List:
Allergies
Allergy/AdvReac Type Severity Reaction Status Date / Time
cephalexin [From Keflex] Allergy Rash Verified 09/06/23 17:29
clindamycin Allergy diarrhea Verified 09/06/23 17:29
venom-honey bee Allergy Swelling Verified 09/06/23 17:29
[bee venom (honey bee)]
Home Medications
losartan 100 mg tablet 100 mg PO DAILY 07/12/20
ibuprofen 200 mg capsule 400 mg PO QPM PRN pain 08/07/23
Review of Systems
-
A 12 point ROS was completed and negative except as noted: Yes
Physical Exam
Vital Signs
Vital Signs
Temp Pulse Resp BP Pulse Ox
99.2 F 95 18 157/82 96
09/06/23 21:27 09/06/23 21:27 09/06/23 21:27 09/06/23 21:27 09/06/23 21:27
Physical exam:
General: Awake, alert and oriented x3, not in distress and holds appropriate conversation.
HEENT: No active discharge, ecchymosis or bruising, moist lips, tongue and mucous membrane.
Eyes: No discharge or red conjunctiva, no nystagmus, pupils are reactive and equal
Neck:Supple, no JVD no bruit no goiter.
Respiratory: Normal AP contour and diameter, normal chest wall movement, normal respiratory effort, no respiratory distress,
Lungs: Good air entry bilaterally, no wheezing or rhonchi, no rales or crackles
Heart: S1, S2 regular, normal rate, no added sound.
Gastrointestinal: Positive bowel sounds, soft, lower abdominal tenderness with no guarding or rigidity or organomegaly
Musculoskeletal: , no chest wall abnormality or tenderness. All joints and extremities have good range of motion, no muscle tenderness or any joint swelling or tenderness.
Extremities: No pitting edema, good peripheral pulses, good range of motion
Skin: Warm and dry, no ulceration, normal color.
Neurological: Awake, alert and oriented x3, no facial droop, speech clear and comprehensive, moves extremities freely, speech clear and comprehensive, good muscle tone.
Psychiatric: Normal mood, normal thought and judgment, normal affect,
Physical Exam
General: Other
Laboratory Results
-
09/06/23 18:51
09/06/23 18:51
Laboratory Results
Lactic Acid 0.6 mmol/L (0.7-2.0) L 09/06/23 19:10
Total Bilirubin 1.0 mg/dl (0.2-1.3) 09/06/23 18:51
AST 31 U/L (14-36) 09/06/23 18:51
ALT 24 U/L (0-35) 09/06/23 18:51
Alkaline Phosphatase 70 U/L (38-126) 09/06/23 18:51
CT abdominal and pelvis:
Distal sigmoid colon diverticulitis with diffuse wall thickening and pericolonic fat stranding affecting the severely diverticular sigmoid colon. A corresponding collection of ill-defined gas and fluid along the inflamed distal sigmoid colon
measures 5.8 x 3.4 cm is most consistent with contained perforation, and is new when compared to prior study. Suggest surgery assessment.
Data Reviewed
-
CT Scan: Image Personally Visualized and interpreted, Report Reviewed by me and Discussed with Patient
Lab Data: Labs Reviewed by me and Discussed with Patient
Old Records: Reviewed
Impression/Plan
-
IMPRESSION:
67-year-old female history of hypertension and recent C. difficile colitis, presented to the hospital for evaluation of the left lower quadrant pain where workup showed perforated diverticulum.
Perforated diverticulum
Hypertension
Leukocytosis
Recent C. difficile
Hyponatremia, her sodium 131 present on admission
PLAN:
Keep n.p.o. except medication only vancomycin orally as a prophylactic to prevent recurrent C. difficile as she was treated for C. difficile a month ago
Surgery aware, they recommended no intervention needed including no mention of IR
Defer further workup to surgery
Zosyn every 6 hours
Pain medication
Toradol as needed for moderate to severe pain as well as fever, she does not want any narcotic. Will hold off Tylenol as we try minimal use orally as mentioned above other than vancomycin prophylactically
At the hydralazine as needed for systolic more than 160
Recheck lab including CBC and BMP
Discussed with the ER physician commercial escrow assistant who saw the patient and spoke to the colorectal surgeon
All discussed with the patient and her daughter in detail and expressed understanding
CODE STATUS full code
DVT prophylaxis Lovenox
[2023-09-06 23:00] VITALS: BP 185/95
[2023-09-06] MEDS: FIRVANQ 125 MG PO (23:20)
[2023-09-07] VITALS (7 sets, daily range): BP systolic 158–179; BP diastolic 84–105
[2023-09-07] MEDS: TORADOL 15 MG IV ×2 (01:03→07:56)
[2023-09-07] MEDS: LIDOCAINE 4% PATCH 1 PATCH TOPICAL ×2 (01:05→21:15)
[2023-09-07] MEDS: NSS 1000 IV ×3 (01:25→21:15)
[2023-09-07] MEDS: ZOSYN 50 IV ×4 (03:50→21:16)
[2023-09-07] MEDS: TYLENOL 1000 MG PO (04:22)
[2023-09-07] MEDS: DILAUDID 0.25 MG IV ×2 (05:28→12:28)
[2023-09-07] MEDS: FIRVANQ 125 MG PO ×2 (07:13→21:00)
[2023-09-07 08:02] LABS: % Basophils 0.4 % (0-2); % Eosinophils 0.7 % (0-6); % Immature Granulocytes 0.6 % (0-0.5); % Lymphocytes 5.9 % (20.5-51.1); % Monocytes 6.4 % (1.7-9.3); Absolute Basophils 0.1 10^3/uL (0-0.2); Absolute Eosinophils 0.1 10^3/uL (0-0.7); Absolute Immature Granulocytes 0.1 10^3/uL (0-0.05); Absolute Lymphocytes 0.7 10^3/uL (1.2-3.4); Absolute Monocytes 0.8 10^3/uL (0.1-0.6); Absolute Neutrophils 10.3 10^3/uL (1.4-6.5); Hematocrit 29.8 % (37.0-47.0); Hemoglobin 10.5 g/dL (12.0-16.0); Mean Corp Hgb Conc. 35.2 g/dL (33.0-37.0); Mean Corpuscular Hgb 34.1 pg (27.0-31.0); Mean Corpuscular Volume 96.8 fL (81.0-99.0); Mean Platelet Volume 10.5 fL (7.4-10.4); Nucleated Red Blood Cells % 0 %; Platelet Count 233 10^3/uL (130-400); Red Blood Cell Count 3.08 10^6/uL (4.20-5.40); Red Cell Dist. Width 12.6 % (11.5-14.5)
[2023-09-07 08:39] LABS: Blood Urea Nitrogen 12 mg/dl (7-17); Calcium 8.6 mg/dl (8.4-10.2); Carbon Dioxide 18 mmol/L (22-30); Chloride 101 mmol/L (98-107); Glucose 79 mg/dl (70-99); Magnesium 1.8 mg/dl (1.6-2.3); Sodium 132 mmol/L (135-145); eGFR > 60.00
[2023-09-07] MEDS: NSS IV (10:16)
--- NOTE | 2023-09-07 11:53 | CON.CRS ---
Addendum entered and electronically signed by Demario Luis MD 09/07/23 12:37:
I saw and examined the patient.
The Housing Quality Standard Inspector's note was reviewed and I agree with the note.
Comment: A month of low grade symptoms since c dif infection, last few days increasing lower abd pain and fevers at home prompted return to hospital. Low grade fevers here and mild leukocytosis that improved from yesterday. Mild ttp to lower abd.
CT with royal-sigmoid abscess and diverticulitis, distal. Does not appear drainable. Considering clinical improvement and recent c dif, will defer surgical intervention and plan for non-op mgmt with iv abx and bowel rest. Agree with c diff ppx with
PO vanco.
Original Note:
Consultation
-
Date/Time Consultation Requested: 09/06/23 [id number]
Requesting Provider: Adolfo
Reason for Consultation: Perforated diverticulum
Medical History
-
Chief Complaint: Abdominal pain
History of Present Illness:
67 yo female with a history of diverticulitis (this is her 4th episode) and recent c-diff colitis one month ago after taking antibiotics for a dental infection and was admitted for management from 08/06-08/08 who presents with pelvic abdominal pain
and fever at home of 101.8. She reports that her pain stretches across her lower abdomen and is worse with any kind of movement. She notes that since her admission for c-diff, her stools never returned to normal. She has been passing small stools
which she says look like 'goose poops' every day but nothing larger. She denies nausea and vomiting. She was tolerating regular food at home. She notes that she did not follow up as advised with [facility] for colonoscopy and surgical discussion after her
last episode of diverticulitis in 2019 as she was feeling better overall and having normal bowel movements.
Past Medical History
Past Medical History: Cancer (skin (squamous)), Diverticulitis and Other (UTI, Shingles)
Past Surgical History: Gynecological (Tubal), Orthopedic (R TKA) and Other
Social History
Tobacco: Former Smoker
Alcohol: Daily (6oz rum mixed with diet soda)
Living: With Family
Family History
Family History: Reviewed & Not Pertinent
Allergies / Home Medications
Allergy/AdvReac Type Severity Reaction Status Date / Time
cephalexin [From Keflex] Allergy Rash Verified 09/06/23 17:29
clindamycin Allergy diarrhea Verified 09/06/23 17:29
venom-honey bee Allergy Swelling Verified 09/06/23 17:29
[bee venom (honey bee)]
�Medication �Instructions �Recorded �Confirmed �Type
losartan 100 mg tablet 100 mg PO DAILY Blood Pressure 07/12/20 09/06/23 History
ibuprofen 200 mg capsule 400 mg PO QPM PRN pain 08/07/23 09/06/23 History
Review of Systems
-
History Source: Patient
All other systems: Negative unless noted
A 10 point review of systems was completed, and was negative except as per HPI.
Physical Exam
Vital Signs
Temp 98.3 F 09/07/23 07:00
Pulse 86 09/07/23 07:00
Resp Rate 18 09/07/23 07:00
Blood pressure 158/93 09/07/23 07:00
SaO2 97 09/07/23 07:00
09/06/23 09/07/23 09/08/23
06:59 06:59 06:59
Actual Weight 71.94 kg
Lab Results / Allergies
09/07/23 06:23
09/07/23 06:23
WBC 12.0 10^3/uL (4.8-10.8) H 09/07/23 06:23
Hgb 10.5 g/dL (12.0-16.0) L 09/07/23 06:23
Hct 29.8 % (37.0-47.0) L 09/07/23 06:23
Plt Count 233 10^3/uL (130-400) D 09/07/23 06:23
Abs Immat Gran (auto) 0.1 10^3/uL (0-0.05) H 09/07/23 06:23
Neutrophils % 86.0 % (42.2-75.2) H 09/07/23 06:23
Allergy/AdvReac Type Severity Reaction Status Date / Time
cephalexin [From Keflex] Allergy Rash Verified 09/06/23 17:29
clindamycin Allergy diarrhea Verified 09/06/23 17:29
venom-honey bee Allergy Swelling Verified 09/06/23 17:29
[bee venom (honey bee)]
Physical Exam
General: Well Developed, Well Nourished and No Apparent Distress
HEENT: Moist Mucous Membranes
Respiratory: Non Labored Respirations
GI: Soft, Non Distended and Tender (across the lower abdomen: mild)
Skin: Warm and Dry
Neuro: Awake, Alert and AO x 3
Psych: Calm
Assessment / Plan
-
Assessment:
67 yo male female with history of recurrent diverticulitis presenting with abdominal pain and fevers after recent c-diff colitis admission one month ago. This is her 4th diverticulitis episode, unfortunately, she has not followed up after resolution
of acute illness for colonoscopy or discussion of elective surgery for removal of the affected portion of her colon.
CT imaging of the abd/pelvis consistent with complicated sigmoid diverticulitis with contained perforation and 5cm abscess. Unfortunately, the location of the abscess does not appear amenable to IR drainage. She would be very high risk for bowel
injury with emergent surgery given recent c-diff infection.
Mild tenderness on exam but reports more severe pain with movement. Low grade temps while inpatient. Mild leukocytosis with downtrend since initiation of antibiotics.
Plan:
Continue NPO with sips of clears for bowel rest
Continue IV abx with zosyn, given recent c-diff also on oral vancomycin prophylactically as well
Continue IVF while NPO
Analgesics/antiemetics as needed with tylenol 650mg q4h, toradol 30mg q6h and dilaudid 0.25mg q43h (all prn)
No plans for emergent surgery at this time, will follow exams, labs and patient progress closely as surgery may be required if condition worsens
--- NOTE | 2023-09-07 13:24 | W.PN.HOSP.TC ---
Today's Communication/Plan
-
renew IVF
OK for sips of juices
follow WBC
cont zosyn and empiric oral vanco
Assessment / Plan
Assessment / Plan
pt is a 67 year old female
Perforated diverticulum with leukocytosis--did not meet sepsis criteria on admission--cont IVF--cont zosyn--follow WBC and clinical improvement--liquids as tolerated--pain control--apprec surgery input--no need for surgery at this time--WBC slowly
improving
anemia of chronic disease likely--HGB dropped with hydration
Essential Hypertension--holding meds--restart as able
Recent C. difficile--cont empiric oral vanco Q12H
Hyponatremia, her sodium 131 present on admission--slowly improving
recent dental work--with prescibed clindamycin as likely cause of C. diff previously
DVT prophylaxis
code status -- FULL CODE
Anticipated Discharge: > 48 hours
Subjective/Interval History
-
Date of Service: September 07, 2023
pt feeling crampy--passing flatus
Objective Data
-
Labs:
Laboratory Results
09/07/23
06:23
WBC 12.0 H
Hgb 10.5 L
Hct 29.8 L
Plt Count 233 D
Sodium 132 L
Potassium 4.0
Chloride 101
Carbon Dioxide 18 L
BUN 12
Creatinine 0.6
Glucose 79
Calcium 8.6
Vital Signs:
max temp for 24 hours
09/06/23
17:26
Temp 100 F
Vital Signs
Temp Pulse Resp BP Pulse Ox
98.3 F 86 18 158/93 97
09/07/23 07:00 09/07/23 07:00 09/07/23 07:00 09/07/23 07:00 09/07/23 07:00
I&O
09/06/23 09/07/23 09/08/23
06:59 06:59 06:59
Intake Total 480 / 480
Balance 480 / 480
Review of Systems
-
All other systems: Reviewed and negative
Physical Exam
-
General: Well Developed, Well Nourished and No Apparent Distress
HEENT: Normocephalic and Atraumatic
Respiratory: Clear to Auscultation; Negative Wheezes or Rhonchi
Cardiac: Regular Rhythm, S1/S2 and Other (prominent valvular hear sounds); Negative Murmur
GI: Soft, Nontender, Nondistended and Normal Bowel Sounds
Neuro: Awake and Alert
--- NOTE | 2023-09-07 14:27 | CM ---
Patient seen bedside.
IA completed.
Patient lives with spouse in a 1 story home with 1 step to enter.
Patient independent prior to admission without assistive devices.
Patient declines need for home care.
Patient aware of CM availability should needs arise.
PCP: Dr Kwon
Pharmacy: [facility].
Plan: home no needs.
[2023-09-07] MEDS: TORADOL 30 MG IV (15:06)
[2023-09-07] MEDS: APRESOLINE 10 MG IV (17:11)
[2023-09-07] MEDS: ATIVAN 1 MG IV (19:19)
[2023-09-07] MEDS: THIAMINE INJECTION 200 MG IV (21:00)
[2023-09-08 03:00] VITALS: BP 177/90
[2023-09-08 03:29] VITALS: BP 177/90
[2023-09-08] MEDS: ZOSYN 50 IV ×4 (05:00→22:31)
[2023-09-08] MEDS: TORADOL 30 MG IV ×2 (05:36→20:16)
--- NOTE | 2023-09-08 05:53 | PTCARENOTE ---
Addendum entered by Maria Del Carmen Morales RN 09/08/23 06:22:
Provider recommended giving pt. PRN dilaudid to help with pain which would also help to bring BP down. Dilaudid administered as ordered. Will follow up with AM shift and recheck BP when appropriate.
Original Note:
Patient with BPs running high overnight, PRN hydralazine refused by pt. because she 'believes that is what is making her BP higher.' Pt. MSAS overnight ranged from an 8 at change of shift (d/t HR, nausea, vomiting, tremors) and was down to a 2 for
the rest of the night for the most part. Provider notified regarding pt. BPs, will continue to monitor.
[2023-09-08] MEDS: DILAUDID 0.25 MG IV (06:07)
[2023-09-08 07:00] VITALS: BP 158/84
[2023-09-08 07:13] VITALS: BP 179/102
[2023-09-08 08:14] LABS: Hematocrit 27.6 % (37.0-47.0); Hemoglobin 9.7 g/dL (12.0-16.0); Mean Corp Hgb Conc. 35.1 g/dL (33.0-37.0); Mean Corpuscular Hgb 33.4 pg (27.0-31.0); Mean Corpuscular Volume 95.2 fL (81.0-99.0); Mean Platelet Volume 9.8 fL (7.4-10.4); Platelet Count 239 10^3/uL (130-400); Red Cell Dist. Width 12.2 % (11.5-14.5); White Blood Cell Count 9.9 10^3/uL (4.8-10.8)
[2023-09-08] MEDS: FIRVANQ 125 MG PO ×2 (08:54→20:17)
[2023-09-08] MEDS: THIAMINE INJECTION IV ×2 (08:55→20:17)
[2023-09-08 09:16] LABS: ALT (SGPT) 14 U/L (0-35); AST (SGOT) 15 U/L (14-36); Albumin 2.9 g/dl (3.5-5.0); Alkaline Phosphatase 70 U/L (38-126); Blood Urea Nitrogen 6 mg/dl (7-17); Calcium 8.1 mg/dl (8.4-10.2); Carbon Dioxide 21 mmol/L (22-30); Chloride 102 mmol/L (98-107); Glucose 110 mg/dl (70-99); Magnesium 1.6 mg/dl (1.6-2.3); Potassium 3.3 mmol/L (3.5-5.1); Sodium 131 mmol/L (135-145); Total Bilirubin 0.6 mg/dl (0.2-1.3); Total Protein 5.5 g/dl (6.3-8.2); eGFR > 60.00
--- NOTE | 2023-09-08 10:07 | W.PN.CRS1 ---
Today's Communication / Plan
-
Continue n.p.o., okay for p.o. meds
Monitor fever curve and vitals
Assessment/Plan
-
67-year-old female with PMH of skin squamous cell cancer, recurrent diverticulitis, recent cdiff infection 1 month ago, daily EtOH who presents with pelvic pain and fever of 101.8, CT scan showing acute sigmoid diverticulitis with a 5 cm abscess,
not amenable for IR drainage; being treated nonoperatively with improving WBC
Tmax 100.5 yesterday afternoon, afebrile since, VSS
WBC 9.9 from 12.0, Hb 9.7, intermittent tachycardia and hypertension
� Overall, appears to be improving from GI standpoint with minimal tenderness on exam and normalized WBC
�Still with low-grade fevers yesterday and intermittent tachycardia with hypertension, sent EKG this a.m.; possibly due to EtOH withdrawal; appreciate hospitalist's opinion
� Would continue n.p.o. with IVF for 1 more day to ensure that vital sign changes are not related to worsening diverticulitis
�Continue IV Zosyn with PO vanc for cdiff ppx
� Continue DVT PPx with Lovenox
� Continue pain control, avoid narcotics if possible
� Encourage IS, OOB
�Appreciate hospitalist
Subjective Data
Subjective Data
Date of Service: September 08, 2023
No overnight events.
Pain significantly improved.
Had episode of nausea and vomiting last night after IV dose of antihypertensive. Denies nausea this a.m.
+flatus +BMs (small X1) +voiding
Objective Data
-
Vital Signs
Temp Pulse Resp BP Pulse Ox
99.1 F 131 16 179/102 97
09/08/23 07:00 09/08/23 07:13 09/08/23 07:00 09/08/23 07:13 09/08/23 07:00
Intake & Output
09/07/23 09/08/23 09/09/23
06:59 06:59 06:59
Intake Total 480 / 480 1300 / 1300
Balance 480 / 480 1300 / 1300
Intake:
Oral fluids 480 / 480
IV fluids (Total) 1200 / 1200
IV piggybacks 100 / 100
Other:
Number of approximated MODERATE 1 6
amounts of urine
How many times incontinent 3
MODERATE amount urine
Lab Results
09/08/23 07:34
09/08/23 07:34
Physical Exam
-
General: No Acute Distress and AOx3
HEENT: Grossly Normal
Abdomen: Soft, Non Distended (Mildly protuberant at baseline), Tender (Minimally tender to palpation in the LLQ), No Guarding and No Rebound
Neurological: Other (Moving all extremities)
Skin: Warm and Dry
[2023-09-08] MEDS: NSS 1000 IV (13:20)
[2023-09-08] MEDS: TYLENOL 650 MG PO (13:20)
[2023-09-08 15:00] VITALS: BP 173/96
--- NOTE | 2023-09-08 15:37 | CM ---
Patient seen at bedside with physician. Patient stated that she did not have any issues with alcohol and she will plan to go home with no needs anticipated. Patient stated that she is bored but declined CM offer to check with Frances about puzzle
books. Patient indicated that she cares for her grandchildren every day so she is not used to sitting still. Patient plan is home with no needs. CM will continue to follow for discharge planning needs.
Plan; home with no needs anticipated
[2023-09-08 15:46] LABS: Magnesium 1.6 mg/dl (1.6-2.3)
--- NOTE | 2023-09-08 16:19 | W.PN.HOSP.TC ---
Addendum entered and electronically signed by Alva Leyva MD 09/08/23 16:53:
I saw and evaluated the patient independently. I reviewed the resident�s note and agree with findings and plan as documented by Dr. Buchanan.
GENERAL: well developed, well nourished, female in no apparent distress
HEENT: NC/AT
HEART: regular rate and rhythm, +S1, +S2
LUNGS : clear to auscultation bilaterally
ABDOM: soft, nontender, nondistended, + bowel sounds
EXT: no cyanosis, clubbing, or edema
NEUROLOGIC: grossly intact
Perforated diverticulum with leukocytosis---cont IVF--cont zosyn--follow WBC and clinical improvement--liquids as tolerated--pain control--apprec surgery input--no need for surgery at this time--WBC slowly improving--restart oral meds
anemia of chronic disease likely--HGB dropped with hydration
Essential Hypertension--holding meds--restart
Recent C. difficile--cont empiric oral vanco Q12H
Hyponatremia, her sodium 131 on admission--slowly improving
hypokalemia--replete
recent dental work--with prescribed clindamycin as likely cause of C. diff previously
DVT prophylaxis
code status -- FULL CODE
Original Note:
Today's Communication/Plan
-
Continue Zosyn and empiric Vanco--continue to follow clinically--monitor sodium levels--consider MSAS
Assessment / Plan
Assessment / Plan
pt is a 67 year old female
Perforated diverticulum with leukocytosis--did not meet sepsis criteria on admission--cont IVF--cont zosyn--downtrending of WBC and clinical improvement--PO as tolerated--pain control--apprec surgery input--no need for surgery at this time
Hypertension and tachycardia--likely signs of alcohol withdrawal--check magnesium level--might consider MSAS if hypertension remains after starting losartan
anemia of chronic disease likely (possibly related to alcohol use)--HGB dropped with hydration
Essential Hypertension--restarting losartan as can tolerate PO
Recent C. difficile--cont empiric oral vanco Q12H
Hyponatremia, sodium remains stable at 131 present --continue to monitor sodium levels and follow clinically
Hypokalemia--replete potassium
recent dental work--with prescibed clindamycin as likely cause of C. diff previously
DVT prophylaxis: Lovenox
code status -- FULL CODE
Anticipated Discharge: Within 24 hours
Subjective/Interval History
-
Date of Service: September 08, 2023
Patient does not report any nausea vomiting--complains of abdominal distention but does not have pain--no diarrhea/loose stools--mentions she was feeling unwell after receiving IV hydralazine yesterday
Objective Data
-
Labs:
Laboratory Results
09/08/23
07:34
WBC 9.9
Hgb 9.7 L
Hct 27.6 L
Plt Count 239
Sodium 131 L
Potassium 3.3 L
Chloride 102
Carbon Dioxide 21 L
BUN 6 L
Creatinine 0.5 L
Glucose 110 H
Calcium 8.1 L
Total Bilirubin 0.6
AST 15
ALT 14
Alkaline Phosphatase 70
Vital Signs:
Vital Signs
Temp Pulse Resp BP Pulse Ox
98.9 F 85 16 173/96 99
09/08/23 15:00 09/08/23 15:00 09/08/23 15:00 09/08/23 15:00 09/08/23 15:00
I&O
09/07/23 09/08/23 09/09/23
06:59 06:59 06:59
Intake Total 480 / 480 1300 / 1300
Balance 480 / 480 1300 / 1300
Review of Systems
-
History Source: Patient
All other systems: Reviewed and negative
Physical Exam
-
General: Well Developed, Well Nourished and No Apparent Distress
HEENT: Normocephalic and Atraumatic
Respiratory: Clear to Auscultation
Cardiac: Regular Rhythm and S1/S2
GI: Soft, Nontender and Normal Bowel Sounds
Genito-urinary: No Costovertebral Tender
Musculoskeletal: No Clubbing, No Cyanosis and No Edema
Neuro: Awake, Alert, Oriented and AO x 3
Psych: Calm
Data Reviewed
-
Total Time Spent with Patient (in minutes): 20
[2023-09-08] MEDS: KCL 20 MEQ PO (16:40)
[2023-09-08] MEDS: COZAAR 100 MG PO (16:41)
[2023-09-08] MEDS: LIDOCAINE 4% PATCH TOPICAL ×2 (22:31→22:37)
[2023-09-08 23:18] VITALS: BP 178/108
[2023-09-09 03:25] VITALS: BP 171/100
[2023-09-09] MEDS: APRESOLINE 5 MG IV (04:01)
[2023-09-09] MEDS: ZOSYN 50 IV ×4 (04:01→23:16)
--- NOTE | 2023-09-09 04:08 | PTCARENOTE ---
Addendum entered by Irwin Kirkpatrick RN 09/09/23 04:16:
This RN educated the patient on the purpose of IV hydralazine administration to lower blood pressure; pt verbalizes understanding.
Original Note:
~0030: Pt's BP is 178/108, HR 92. Pt reports having 4/10 pain in her middle abdomen and lower back, but no other symptoms noted. David Durant notified, will recheck in a few hours.
0330: Pt's BP is now 171/100, HR 91. No symptoms noted. David Durant notified, order placed for 1x IV Hydralazine 5mg. Pt reports that 'the last time I had that, it actually raised my blood pressure'. David Durant notified of pt's concerns and
will proceed with IV hydralazine administration. Pt agreeable to taking IV hydralazine, stating 'I don't want to stroke out, man'. Will continue to monitor.
[2023-09-09] MEDS: NSS 1000 IV ×2 (05:45→16:16)
[2023-09-09 05:53] VITALS: BP 171/94
[2023-09-09 07:31] LABS: % Basophils 0.5 % (0-2); % Eosinophils 1.5 % (0-6); % Immature Granulocytes 0.5 % (0-0.5); % Lymphocytes 10.9 % (20.5-51.1); % Neutrophils 80.6 % (42.2-75.2); Absolute Basophils 0.1 10^3/uL (0-0.2); Absolute Eosinophils 0.1 10^3/uL (0-0.7); Absolute Immature Granulocytes 0.1 10^3/uL (0-0.05); Absolute Monocytes 0.6 10^3/uL (0.1-0.6); Absolute Neutrophils 7.4 10^3/uL (1.4-6.5); Hematocrit 31.7 % (37.0-47.0); Hemoglobin 11.1 g/dL (12.0-16.0); Mean Corpuscular Hgb 32.7 pg (27.0-31.0); Mean Corpuscular Volume 93.5 fL (81.0-99.0); Mean Platelet Volume 9.6 fL (7.4-10.4); Nucleated Red Blood Cells % 0 %; Platelet Count 308 10^3/uL (130-400); Red Blood Cell Count 3.39 10^6/uL (4.20-5.40); Red Cell Dist. Width 12.2 % (11.5-14.5); White Blood Cell Count 9.2 10^3/uL (4.8-10.8)
[2023-09-09 07:55] VITALS: BP 181/98
[2023-09-09] MEDS: COZAAR 100 MG PO (08:42)
[2023-09-09] MEDS: FIRVANQ 125 MG PO ×2 (08:42→19:45)
[2023-09-09] MEDS: THIAMINE INJECTION IV ×2 (08:44→19:44)
--- NOTE | 2023-09-09 10:37 | W.PN.CRS1 ---
Today's Communication / Plan
-
clears
Assessment/Plan
-
67-year-old female with PMH of skin squamous cell cancer, recurrent diverticulitis, recent cdiff infection 1 month ago, daily EtOH who presents with pelvic pain and fever of 101.8, CT scan showing acute sigmoid diverticulitis with a 5 cm abscess,
not amenable for IR drainage; being treated nonoperatively with improving WBC
Afebrile for over 24 hours
WBC 9.2.
� Less tender today, advance to clears
� Would continue n.p.o. with IVF for 1 more day to ensure that vital sign changes are not related to worsening diverticulitis
�Continue IV Zosyn with PO vanc for cdiff ppx
� Continue DVT PPx with Lovenox
� Continue pain control, avoid narcotics if possible
� Encourage IS, OOB
�Appreciate hospitalist
Subjective Data
Subjective Data
Date of Service: September 09, 2023
Patient states she is mildly tender in her LLQ but feels well. She has no other complaints. She has bowel function.
Objective Data
-
Vital Signs
Temp Pulse Resp BP Pulse Ox
99.2 F 85 18 181/98 97
09/09/23 07:55 09/09/23 07:55 09/09/23 07:55 09/09/23 07:55 09/09/23 07:55
Intake & Output
09/08/23 09/09/23 09/10/23
06:59 06:59 06:59
Intake Total 1300 / 1300 0 / 1920 800 / 800
Balance 1300 / 1300 1919 / 1920 800 / 800
Intake:
Oral fluids 1919
IV fluids (Total) 1200 / 1200 700 / 700
IV piggybacks 100 / 100 100 / 100
Other:
Number of approximated MODERATE 6 8
amounts of urine
How many times incontinent 3
MODERATE amount urine
Number of unmeasured liquid
stools
Rectum 1
Lab Results
09/09/23 07:01
09/08/23 07:34
Physical Exam
-
General: No Acute Distress and AOx3
Abdomen: Soft, Non Distended and Tender (mild LLQ)
Skin: Warm and Dry
[2023-09-09 15:30] VITALS: BP 178/94
--- NOTE | 2023-09-09 17:59 | W.PN.HOSP.TC ---
Addendum entered and electronically signed by Alva Leyva MD 09/09/23 18:59:
I saw and evaluated the patient independently. I reviewed the resident�s note and agree with findings and plan as documented by Dr. Buchanan.
GENERAL: well developed, well nourished, female in no apparent distress
HEENT: NC/AT
HEART: regular rate and rhythm, +S1, +S2
LUNGS : clear to auscultation bilaterally
ABDOM: soft, nontender, nondistended, + bowel sounds
EXT: no cyanosis, clubbing, or edema
NEUROLOGIC: grossly intact
Perforated diverticulum with leukocytosis---stop IVF--cont zosyn--follow WBC and clinical improvement--clears----apprec surgery input--no need for surgery at this time--WBC now WNL--restart oral meds
anemia of chronic disease likely--HGB dropped with hydration
Essential Hypertension--holding meds--restarted but still high--add norvasc at HS
Recent C. difficile--cont empiric oral vanco Q12H
Hyponatremia, her sodium 131 on admission--slowly improving
hypokalemia--replete
recent dental work--with prescribed clindamycin as likely cause of C. diff previously
DVT prophylaxis
code status -- FULL CODE
Original Note:
Today's Communication/Plan
-
Continue IV fluids and Zosyn and Vanco--n.p.o. for now--start clear liquids--may advance to p.o. tomorrow
Assessment / Plan
Assessment / Plan
pt is a 67 year old female
Perforated diverticulum with leukocytosis--did not meet sepsis criteria on admission--discont IVF--cont zosyn--downtrending of WBC and clinical improvement--NPO for now--pain control--apprec surgery input--advance to clears, would continue n.p.o.
with IVF for 1 more day to ensure that vital sign changes are not related to worsening diverticulitis
Hypertension and tachycardia--likely signs of alcohol withdrawal--magnesium level normal
anemia of chronic disease likely (possibly related to alcohol use)--HGB trending upwards
Essential Hypertension--restarting losartan as can tolerate PO
Recent C. difficile--cont empiric oral vanco Q12H
Hyponatremia, sodium remains stable at 131 present --continue to monitor sodium levels and follow clinically--BMP ordered for tomorrow
recent dental work--with prescribed clindamycin as likely cause of C. diff previously
DVT prophylaxis: Lovenox
code status -- FULL CODE
Anticipated Discharge: 24 - 48 hours
Subjective/Interval History
-
Date of Service: September 09, 2023
Pt mention she had loose stools every 15-20 minutes last night but also acknowledges that she is only being drinking water and apple juice during the past day. Did not see any blood in her stools. She does not feel nauseous. No vomiting.
Objective Data
-
Labs:
Laboratory Results
09/09/23
07:01
WBC 9.2
Hgb 11.1 L
Hct 31.7 L
Plt Count 308 D
Vital Signs:
Vital Signs
Temp Pulse Resp BP Pulse Ox
98.0 F 96 18 178/94 98
09/09/23 15:30 09/09/23 15:30 09/09/23 15:30 09/09/23 15:30 09/09/23 15:30
I&O
09/08/23 09/09/23 09/10/23
06:59 06:59 06:59
Intake Total 1300 / 1300 1920 / 1920 800 / 800
Balance 1300 / 1300 1920 / 1920 800 / 800
Review of Systems
-
History Source: Patient
All other systems: Reviewed and negative
Abdomen/GI: Reports Bloated
Physical Exam
-
General: Well Developed, Well Nourished and Comfortable
HEENT: Normocephalic and Atraumatic
Respiratory: Clear to Auscultation
Cardiac: Regular Rhythm and S1/S2
GI: Soft, Nontender and Normal Bowel Sounds
Genito-urinary: No Costovertebral Tender
Musculoskeletal: No Clubbing, No Cyanosis and No Edema
Skin: Warm
Neuro: Awake, Alert, Oriented and AO x 3
Hematologic / Lymphatic: No Lymphadenopathy
Psych: Calm
Data Reviewed
-
Total Time Spent with Patient (in minutes): 20
[2023-09-09] MEDS: TORADOL 30 MG IV (19:47)
[2023-09-09] MEDS: ZOSYN IV (22:27)
[2023-09-09] MEDS: NORVASC 5 MG PO (22:28)
[2023-09-09] MEDS: LIDOCAINE 4% PATCH TOPICAL ×2 (22:28→22:30)
[2023-09-09 23:13] VITALS: BP 177/102
--- NOTE | 2023-09-10 03:08 | DOWNTIME ---
There was a [email or web address] Client Head Neck Surgeon Downtime on 09/10/2023 from 0100 to 09/10/2023 at 0255. Downtime documentation of patient's care, including medication administrations, has been reconciled in the electronic record per guidelines. Refer to the
patient's paper chart under the miscellaneous tab to see printed paper medication records and downtime forms.
[2023-09-10] MEDS: ZOSYN 50 IV ×4 (04:59→22:19)
[2023-09-10 05:04] VITALS: BP 158/82
[2023-09-10 07:00] VITALS: BP 146/81
[2023-09-10] MEDS: FIRVANQ 125 MG PO ×2 (07:53→20:10)
[2023-09-10] MEDS: TORADOL 30 MG IV ×2 (07:54→20:13)
[2023-09-10] MEDS: COZAAR 100 MG PO (07:54)
[2023-09-10] MEDS: THIAMINE INJECTION IV (07:54)
[2023-09-10 08:38] LABS: Blood Urea Nitrogen < 2 mg/dl (7-17); Calcium 9.1 mg/dl (8.4-10.2); Carbon Dioxide 24 mmol/L (22-30); Chloride 102 mmol/L (98-107); Estimated Creatinine Clearance 88 ml/min; Glucose 111 mg/dl (70-99); Potassium 3.6 mmol/L (3.5-5.1); Sodium 136 mmol/L (135-145); eGFR > 60.00
--- NOTE | 2023-09-10 09:40 | W.PN.CRS1 ---
Today's Communication / Plan
-
full liquids
Assessment/Plan
-
67-year-old female with PMH of skin squamous cell cancer, recurrent diverticulitis, recent cdiff infection 1 month ago, daily EtOH who presents with pelvic pain and fever of 101.8, CT scan showing acute sigmoid diverticulitis with a 5 cm abscess,
not amenable for IR drainage; being treated nonoperatively with improving WBC
Afebrile for over 48 hours
WBC normalized yesterday
� Advance diet to fulls
� Continue IV Zosyn with PO vanc for cdiff ppx
� Continue DVT PPx with Lovenox
� Continue pain control, avoid narcotics if possible
� Encourage IS, OOB
�Appreciate hospitalist
Subjective Data
Subjective Data
Date of Service: September 10, 2023
Patient states she is feeling much better. Her stools are loose. Her pain is much improved. She has bowel movements and she is tolerating clears with no issues. She is very hungry.
Objective Data
-
Vital Signs
Temp Pulse Resp BP Pulse Ox
98.5 F 74 18 146/81 96
09/10/23 07:00 09/10/23 07:00 09/10/23 07:00 09/10/23 07:00 09/10/23 07:00
Intake & Output
09/09/23 09/10/23 09/11/23
06:59 06:59 06:59
Intake Total 1919 5160 / 5160 790 / 790
Balance 1919 5160 / 5160 790 / 790
Intake:
Oral fluids 1919 3360 / 3360 480 / 480
IV fluids (Total) 1700 / 1700 210 / 210
IV piggybacks 100 / 100 100 / 100
Other:
Number of approximated MODERATE 8 3
amounts of urine
Number of unmeasured liquid
stools
Rectum 1
Lab Results
09/09/23 07:01
09/10/23 07:37
Physical Exam
-
General: No Acute Distress and AOx3
Abdomen: Soft, Non Distended and Non Tender
Skin: Warm and Dry
--- NOTE | 2023-09-10 12:59 | CM ---
Patient seen at bedside with physicians. Patient happy with advancement of diet. Patient eager for discharge home, does not anticipate any needs at discharge. CM will continue to follow for discharge planning needs.
Plan; home with no needs anticipated.
[2023-09-10 15:00] VITALS: BP 134/78
--- NOTE | 2023-09-10 17:58 | W.PN.HOSP.TC ---
Addendum entered and electronically signed by Alva Leyva MD 09/10/23 18:19:
I saw and evaluated the patient independently. I reviewed the resident�s note and agree with findings and plan as documented by Dr. Buchanan.
GENERAL: well developed, well nourished, female in no apparent distress
HEENT: NC/AT
HEART: regular rate and rhythm, +S1, +S2
LUNGS : clear to auscultation bilaterally
ABDOM: soft, nontender, nondistended, + bowel sounds
EXT: no cyanosis, clubbing, or edema
NEUROLOGIC: grossly intact
Perforated diverticulum with leukocytosis---much improved--cont zosyn---tolerated clears and so far fulls----apprec surgery input--no need for surgery at this time--WBC now WNL--restarted oral meds--anticipate low res diet in AM
anemia of chronic disease likely--HGB dropped with hydration--no active bleeding
Essential Hypertension---restarted meds and added norvasc at HS--BP improved
Recent C. difficile--cont empiric oral vanco Q12H
Hyponatremia, her sodium 131 on admission--slowly improving
hypokalemia--replete
recent dental work--with prescribed clindamycin as likely cause of C. diff previously
DVT prophylaxis
code status -- FULL CODE
Original Note:
Today's Communication/Plan
-
Patient diet can advance to full liquids--continue antibiotics as before
Assessment / Plan
Assessment / Plan
pt is a 67 year old female
Perforated diverticulum with leukocytosis--did not meet sepsis criteria on admission--discont IVF--cont zosyn--downtrending of WBC and clinical improvement--pain control--apprec colorectal surgery input--advanced to full liquids
Hypertension and tachycardia--likely signs of alcohol withdrawal--magnesium level normal--patient received 1 dose of amlodipine last night after having high BPs--BPs in the morning and this afternoon are ok
anemia of chronic disease likely (possibly related to alcohol use)--HGB trending upwards
Essential Hypertension--restarting losartan as can tolerate PO
Recent C. difficile--cont empiric oral vanco Q12H
Hyponatremia resolved--BMP ordered for tomorrow
recent dental work--with prescribed clindamycin as likely cause of C. diff previously
DVT prophylaxis: Lovenox
code status -- FULL CODE
Anticipated Discharge: 24 - 48 hours
Subjective/Interval History
-
Date of Service: September 10, 2023
Patient is feeling very good. She can tolerate clear fluids without any nausea vomiting. Does not report any diarrhea. Does not report any abdominal pain.
Objective Data
-
Labs:
Laboratory Results
09/10/23
07:37
Sodium 136
Potassium 3.6
Chloride 102
Carbon Dioxide 24
BUN < 2 L
Creatinine 0.5 L
Glucose 111 H
Calcium 9.1
Vital Signs:
Vital Signs
Temp Pulse Resp BP Pulse Ox
98.4 F 82 18 134/78 97
09/10/23 15:00 09/10/23 15:00 09/10/23 15:00 09/10/23 15:00 09/10/23 15:00
I&O
09/09/23 09/10/23 09/11/23
06:59 06:59 06:59
Intake Total 1919 5160 / 5160 790 / 790
Balance 1919 5160 / 5160 790 / 790
Review of Systems
-
History Source: Patient
All other systems: Reviewed and negative
Musculoskeletal: Reports Other (Back pain)
Physical Exam
-
General: Well Developed, Well Nourished and Comfortable
HEENT: Normocephalic and Atraumatic
Respiratory: Clear to Auscultation
Cardiac: Regular Rhythm and S1/S2
GI: Soft, Nontender and Distended
Rectal: Brown
Musculoskeletal: No Clubbing, No Cyanosis and No Edema
Neuro: Awake, Alert, Oriented and AO x 3
Psych: Calm
Data Reviewed
-
Total Time Spent with Patient (in minutes): 20
[2023-09-10] MEDS: LIDOCAINE 4% PATCH TOPICAL (22:35)
[2023-09-10 22:39] VITALS: BP 156/81
[2023-09-11] MEDS: ZOSYN 50 IV ×4 (04:39→21:19)
[2023-09-11 07:35] VITALS: BP 169/94
[2023-09-11 08:10] LABS: Hematocrit 32.2 % (37.0-47.0); Hemoglobin 11.3 g/dL (12.0-16.0); Mean Corp Hgb Conc. 35.1 g/dL (33.0-37.0); Mean Corpuscular Hgb 33.3 pg (27.0-31.0); Mean Platelet Volume 9.3 fL (7.4-10.4); Platelet Count 358 10^3/uL (130-400); Red Blood Cell Count 3.39 10^6/uL (4.20-5.40); Red Cell Dist. Width 12.1 % (11.5-14.5); White Blood Cell Count 7.6 10^3/uL (4.8-10.8)
[2023-09-11 08:42] LABS: Blood Urea Nitrogen < 2 mg/dl (7-17); Calcium 9.1 mg/dl (8.4-10.2); Carbon Dioxide 24 mmol/L (22-30); Chloride 100 mmol/L (98-107); Estimated Creatinine Clearance 88 ml/min; Glucose 115 mg/dl (70-99); Potassium 3.9 mmol/L (3.5-5.1); Sodium 135 mmol/L (135-145); eGFR > 60.00
[2023-09-11] MEDS: COZAAR 100 MG PO (08:43)
[2023-09-11] MEDS: FIRVANQ 125 MG PO ×2 (08:43→20:07)
--- NOTE | 2023-09-11 09:04 | W.PN.CRS1 ---
Today's Communication / Plan
-
Low residue
Assessment/Plan
-
67-year-old female with PMH of skin squamous cell cancer, recurrent diverticulitis, recent cdiff infection 1 month ago, daily EtOH who presents with pelvic pain and fever of 101.8, CT scan showing acute sigmoid diverticulitis with a 5 cm abscess,
not amenable for IR drainage; being treated nonoperatively with improving WBC
Afebrile for over 72 hours
WBC normalized yesterday
� Advance diet to low residue
� Continue IV Zosyn with PO vanc for cdiff ppx
� Continue DVT PPx with Lovenox
� Continue pain control, avoid narcotics if possible
� Encourage IS, OOB
�Appreciate hospitalist
� Anticipate discharge tomorrow
Subjective Data
Subjective Data
Date of Service: September 11, 2023
Patient states that she feels much improved today. Her abdominal cramping is virtually gone. She denies nausea or vomiting. Her bowel movements are more formed. She has tolerated a full liquid diet. Overall she feels much better.
Objective Data
-
Vital Signs
Temp Pulse Resp BP Pulse Ox
98.2 F 86 18 169/94 97
09/11/23 07:35 09/11/23 07:35 09/11/23 07:35 09/11/23 07:35 09/11/23 07:35
Intake & Output
09/10/23 09/11/23 09/12/23
06:59 06:59 06:59
Intake Total 5160 / 5160 2710 / 2710 100 / 100
Balance 5160 / 5160 2710 / 2710 100 / 100
Intake:
Oral fluids 3360 / 3360 2400 / 2400
IV fluids (Total) 1700 / 1700 210 / 210
IV piggybacks 100 / 100 100 / 100 100 / 100
Other:
Number of approximated MODERATE 3 3
amounts of urine
Lab Results
09/11/23 07:44
09/11/23 07:35
Physical Exam
-
General: No Acute Distress and AOx3
Abdomen: Soft, Non Distended and Non Tender
Skin: Warm and Dry
--- NOTE | 2023-09-11 11:55 | CM ---
Patient seen at bedside with physicians. Patient stated that she would prefer discharge tomorrow as she is very anxious about making sure symptoms do not reoccur. Patient completed IMM form and signed form placed on chart. Patient stated
will provide transportation home and she did not anticipate any further needs.
Plan; home with no needs.
--- NOTE | 2023-09-11 11:57 | W.PN.HOSP.TC ---
Addendum entered and electronically signed by Alva Leyva MD 09/11/23 13:53:
I saw and evaluated the patient independently. I reviewed the resident�s note and agree with findings and plan as documented by Dr. Buchanan.
GENERAL: well developed, well nourished, female in no apparent distress
HEENT: NC/AT
HEART: regular rate and rhythm, +S1, +S2
LUNGS : clear to auscultation bilaterally
ABDOM: soft, nontender, nondistended, + bowel sounds
EXT: no cyanosis, clubbing, or edema
NEUROLOGIC: grossly intact
Perforated diverticulum with leukocytosis---much improved--cont zosynwhile in house, OK to change to Augmentin at d/c--now on low residue diet---apprec surgery input--no need for surgery at this time--WBC now WNL--restarted oral meds--anticipate d/c
tomorrow
anemia of chronic disease likely--HGB dropped with hydration--no active bleeding
Essential Hypertension---restarted meds and added norvasc at HS--BP improved
Recent C. difficile--cont empiric oral vanco Q12H
Hyponatremia, her sodium 131 on admission--slowly improving
hypokalemia--replete
recent dental work--with prescribed clindamycin as likely cause of C. diff previously
DVT prophylaxis
code status -- FULL CODE
Original Note:
Today's Communication/Plan
-
Advance diet to low residue
Assessment / Plan
Assessment / Plan
pt is a 67 year old female
Perforated diverticulum with leukocytosis--did not meet sepsis criteria on admission--leukocytosis now resolved--discont IVF--cont zosyn--pain control with ibuprofen--apprec colorectal surgery input--advance diet to low residue, anticipate discharge
tomorrow
Hypertension and tachycardia--likely signs of alcohol withdrawal--magnesium level normal--BPs are now controlled
anemia of chronic disease likely (possibly related to alcohol use)--HGB trending upwards
Essential Hypertension--restarting losartan as can tolerate PO
Recent C. difficile--cont empiric oral vanco Q12H
Hyponatremia resolved--BMP ordered for tomorrow
recent dental work--with prescribed clindamycin as likely cause of C. diff previously
DVT prophylaxis: Lovenox
code status -- FULL CODE
Anticipated Discharge: Within 24 hours
Subjective/Interval History
-
Date of Service: September 11, 2023
Patient is feeling good-did not have any nausea, vomiting, diarrhea overnight--blood pressure is controlled--could tolerate full liquids--has some mild back pain
Objective Data
-
Labs:
Laboratory Results
09/11/23 09/11/23
07:35 07:44
WBC 7.6
Hgb 11.3 L
Hct 32.2 L
Plt Count 358
Sodium 135
Potassium 3.9
Chloride 100
Carbon Dioxide 24
BUN < 2 L
Creatinine 0.6
Glucose 115 H
Calcium 9.1
Vital Signs:
Vital Signs
Temp Pulse Resp BP Pulse Ox
98.2 F 86 18 169/94 97
09/11/23 07:35 09/11/23 07:35 09/11/23 07:35 09/11/23 07:35 09/11/23 07:35
I&O
09/10/23 09/11/23 09/12/23
06:59 06:59 06:59
Intake Total 5160 / 5160 0 / 0 100 / 100
Balance 5160 / 5160 0 / 2709 100 / 100
Review of Systems
-
History Source: Patient
All other systems: Reviewed and negative
Musculoskeletal: Reports Other (Mild back pain)
Physical Exam
-
General: Well Developed and Comfortable
HEENT: Normocephalic and Atraumatic
Respiratory: Clear to Auscultation
Cardiac: Regular Rhythm and S1/S2
GI: Soft, Nontender, Nondistended and Normal Bowel Sounds
Musculoskeletal: No Clubbing, No Cyanosis and No Edema
Neuro: Awake, Alert, Oriented and AO x 3
Psych: Calm
Data Reviewed
-
Total Time Spent with Patient (in minutes): 15
[2023-09-11] MEDS: MOTRIN 400 MG PO ×2 (12:53→20:13)
[2023-09-11 14:49] VITALS: BP 161/82
[2023-09-11] MEDS: LIDOCAINE 4% PATCH TOPICAL (22:20)
[2023-09-11 23:20] VITALS: BP 179/92
[2023-09-12] MEDS: ZOSYN 50 IV ×2 (04:18→09:15)
[2023-09-12 08:54] LABS: Hematocrit 33.6 % (37.0-47.0); Hemoglobin 11.4 g/dL (12.0-16.0); Mean Corp Hgb Conc. 33.9 g/dL (33.0-37.0); Mean Corpuscular Hgb 32.7 pg (27.0-31.0); Mean Corpuscular Volume 96.3 fL (81.0-99.0); Mean Platelet Volume 9.3 fL (7.4-10.4); Platelet Count 372 10^3/uL (130-400); Red Blood Cell Count 3.49 10^6/uL (4.20-5.40); Red Cell Dist. Width 12.4 % (11.5-14.5); White Blood Cell Count 7.1 10^3/uL (4.8-10.8)
--- NOTE | 2023-09-12 09:11 | W.PN.HOSP.TC ---
Addendum entered and electronically signed by Alva Leyva MD 09/12/23 13:31:
I saw and evaluated the patient independently. I reviewed the resident�s note and agree with findings and plan as documented by Dr. Buchanan.
GENERAL: well developed, well nourished, female in no apparent distress
HEENT: NC/AT
HEART: regular rate and rhythm, +S1, +S2
LUNGS : clear to auscultation bilaterally
ABDOM: soft, nontender, nondistended, + bowel sounds
EXT: no cyanosis, clubbing, or edema
NEUROLOGIC: grossly intact
Perforated diverticulum with leukocytosis---much improved--cont zosyn while in house, OK to change to Augmentin at d/c--tolerating low residue diet---apprec surgery input--no need for surgery at this time--WBC now WNL--restarted oral meds-- d/c
anemia of chronic disease likely--HGB dropped with hydration--no active bleeding
Essential Hypertension---restarted meds and added norvasc at HS--BP improved
Recent C. difficile--cont empiric oral vanco Q12H while on ABX
Hyponatremia, her sodium 131 on admission--slowly improving
hypokalemia--replete
recent dental work--with prescribed clindamycin as likely cause of C. diff previously
DVT prophylaxis
code status -- FULL CODE
Original Note:
Today's Communication/Plan
-
Advance to regular diet if pt tolerates-may plan for discharge
Assessment / Plan
Assessment / Plan
pt is a 67 year old female
Perforated diverticulum with leukocytosis--did not meet sepsis criteria on admission--leukocytosis now resolved--discont IVF--cont zosyn--pain control with ibuprofen--apprec colorectal surgery input-- diet advanced to low residue, anticipate
discharge today
Hypertension and tachycardia--likely signs of alcohol withdrawal--magnesium level normal--BPs are controlled
anemia of chronic disease likely (possibly related to alcohol use)--HGB trending upwards
Essential Hypertension--restarting losartan as can tolerate PO
Recent C. difficile--cont empiric oral vanco Q12H
Hyponatremia resolved--today's chemistry labs pending
recent dental work--with prescribed clindamycin as likely cause of C. diff previously
DVT prophylaxis: Lovenox
code status -- FULL CODE
Anticipated Discharge: Today
Subjective/Interval History
-
Date of Service: September 12, 2023
Patient is feeling good at this moment. She mentions dyspepsia last night after having her meal which made her a bit nauseous but has been doing good after that. She did not have any nausea/ vomiting after eating her breakfast this morning. She had
a couple of loose stools overnight but no diarrhea. Is currently on low-residue diet. She also had a transient sharp RLQ pain last night which went away after passing gas.
Objective Data
-
Labs:
Laboratory Results
09/12/23
08:16
WBC 7.1
Hgb 11.4 L
Hct 33.6 L
Plt Count 372
Sodium Pending
Potassium Pending
Chloride Pending
Carbon Dioxide Pending
BUN Pending
Creatinine Pending
Glucose Pending
Calcium Pending
Vital Signs:
Vital Signs
Temp Pulse Resp BP Pulse Ox
98.8 F 72 16 179/92 96
09/11/23 23:20 09/11/23 23:20 09/11/23 23:20 09/11/23 23:20 09/11/23 23:20
I&O
09/11/23 09/12/23 09/13/23
06:59 06:59 06:59
Intake Total 0 / 0 880 / 880
Balance 0 / 0 880 / 880
Review of Systems
-
History Source: Patient
All other systems: Reviewed and negative
Abdomen/GI: Reports Bloated
Physical Exam
-
General: Well Developed, Well Nourished and Comfortable
HEENT: Normocephalic and Atraumatic
Respiratory: Clear to Auscultation
Cardiac: Regular Rhythm and S1/S2
GI: Soft, Nontender, Normal Bowel Sounds and Distended
Rectal: Brown
Musculoskeletal: No Clubbing, No Cyanosis and No Edema
Neuro: Awake, Alert, Oriented and AO x 3
Psych: Calm
Data Reviewed
-
Total Time Spent with Patient (in minutes): 15
[2023-09-12] MEDS: MOTRIN 400 MG PO (09:15)
[2023-09-12] MEDS: COZAAR 100 MG PO (09:16)
[2023-09-12] MEDS: FIRVANQ 125 MG PO (09:17)
[2023-09-12 09:40] LABS: Blood Urea Nitrogen 3 mg/dl (7-17); Calcium 9.4 mg/dl (8.4-10.2); Carbon Dioxide 29 mmol/L (22-30); Chloride 98 mmol/L (98-107); Estimated Creatinine Clearance 88 ml/min; Glucose 101 mg/dl (70-99); Potassium 3.8 mmol/L (3.5-5.1); Sodium 135 mmol/L (135-145); eGFR > 60.00
--- NOTE | 2023-09-12 13:32 | W.PN.UPDATE ---
Update Note
Progress Note Update
Attempted to see patient this AM but unable to see patient, as she was not available. If she is tolerating a low residue diet, she may be discharged from our perspective.
--- NOTE | 2023-09-12 13:46 | CM ---
Patient seen at bedside with physician. Patient for discharge today. Patient indicated that she was happy with plan and had no needs at this time. CM will continue to follow for discharge planning needs.
Plan; home with no needs.
[2023-09-12 15:09] VITALS: BP 175/95
[2023-09-12] MEDS: ZOSYN IV (16:21)
--- NOTE | 2023-09-12 19:25 | W.DCSUMMARY ---
Addendum entered and electronically signed by Alva Leyva MD 09/13/23 07:21:
Read, reviewed, and agree. See same day progress note for additional details. Time spent coordinating care, DC planning, review of DC plan of care with resident, transition of care, review of records in EMR, med rec, consults, notes, d/w
consultants, nursing, family, and CM = 32 minutes.
Original Note:
Discharge Summary
Discharge Data
Date of Admission: 09/06/23
Date of Discharge: 09/12/23
-
Pending Results: No
Hospital Course
Patient is a 67 yo female with a history of diverticulitis and recent c-diff colitis (one month ago after taking clindamycin for dental infection) who presented to ED with lower abdominal pain and fever (temperature recorded at home was 101.8).
She denied any nausea or vomiting. She did not meet sepsis criteria in ED but had mild leukocytosis. Abdominal CT scan showed acute sigmoid diverticulitis with 5 cm abscess which did not appear to be drainable. Surgical intervention was deferred
and patient was admitted for nonoperative management with IV antibiotics and bowel rest.
#1 Perforated diverticulum with leukocytosis: IVF and zosyn were started which resulted in clinical improvement and downtrending of WBC. Patient was initially n.p.o. and diet gradually advanced to clear fluids, full fluids, and eventually
low-residue after clinical improvement and toleration of p.o.. Patient did not experience any episodes of diarrhea during hospitalization. Abdominal pain and leukocytosis were resolved. Electrolytes were repleted.
#2 anemia: Likely due to chronic disease. Hemoglobin up trended during hospitalization
#3 Essential Hypertension: Losartan was initially held but was restarted after toleration of p.o.
#4 recent C. difficile: Empiric Vanco 125 twice daily was given for C. difficile.
Patient is stable for discharge to home. She has received instructions for continuation of treatment with oral Augmentin and Vanco for next 10 days.
Discharge Plan
-
Patient Disposition: Home (Routine Discharge)
Discharge Diagnosis/Procedures: Perforated diverticulum with leukocytosis, anemia of chronic disease, Essential Hypertension, Recent C. difficile
Condition: Good
Diet: As tolerated
Activity: As tolerated
Driving Restrictions: As prior to admission
Bathing Restrictions: None
Referrals:
Gonzalez Kwon MD [Family Provider] - in less than 1 week
Prescriptions:
New
amoxicillin-pot clavulanate [Augmentin] 500-125 mg tablet
1 tab PO BID Qty: 20 0RF
vancomycin 125 mg capsule
125 mg PO BID Qty: 20 0RF
Continued
losartan 100 MG tablet
100 mg PO DAILY
Changed
ibuprofen 200 mg Capsule
400 mg PO PRN PRN (Reason: Pain) Qty: 30 0RF
Discharge Orders:
Discharge Patient (As Directed); Ordered 09/12/23
Ordered By: Amanda Buchanan
Discharge Date and Time
Discharge Date/Time: 09/12/23 17:28
Print Language: BERMUDIAN
== END 2023-09-12 17:28 | disposition home or self-care (01) | DRG 391 ==
LOC: 4 WEST ACU 22:12
PROVIDERS: Physician Assistant; ADMITTING PHYSICIAN Internal Medicine; ATTENDING PHYSICIAN Internal Medicine; EMERGENCY PHYSICIAN Student in an Organized Health Care Education/Training Program; FAMILY PHYSICIAN Internal Medicine; OTHER PHYSICIAN Surgery
DX: K57.20 Diverticulitis of large intestine with perforation and abscess without bleeding (principal); K65.1 Peritoneal abscess; E87.1 Hypo-osmolality and hyponatremia; K63.0 Abscess of intestine; F10.139 Alcohol abuse with withdrawal, unspecified; Z87.891 Personal history of nicotine dependence; D63.8 Anemia in other chronic diseases classified elsewhere; I10 Essential (primary) hypertension; E87.6 Hypokalemia
CPT/HCPCS: 74177; 80048; 80053; 81003; 83605; 83735; 85025; 85027; 93005; 96361; 96365; 96375; 99285; Q9967

== ENCOUNTER 2023-09-17 01:29 | Inpatient (IN) | payer OTHER, SELFPAY ==
[2023-09-16 20:35] VITALS: BP 174/92
[2023-09-16 20:53] LABS: % Basophils 0.5 % (0-2); % Immature Granulocytes 0.6 % (0-0.5); % Lymphocytes 7.8 % (20.5-51.1); % Monocytes 4.8 % (1.7-9.3); % Neutrophils 85.3 % (42.2-75.2); Absolute Basophils 0.1 10^3/uL (0-0.2); Absolute Eosinophils 0.2 10^3/uL (0-0.7); Absolute Immature Granulocytes 0.1 10^3/uL (0-0.05); Absolute Lymphocytes 1.3 10^3/uL (1.2-3.4); Absolute Monocytes 0.8 10^3/uL (0.1-0.6); Absolute Neutrophils 14.2 10^3/uL (1.4-6.5); Hematocrit 32.5 % (37.0-47.0); Hemoglobin 11.4 g/dL (12.0-16.0); Mean Corp Hgb Conc. 35.1 g/dL (33.0-37.0); Mean Corpuscular Hgb 32.8 pg (27.0-31.0); Mean Corpuscular Volume 93.4 fL (81.0-99.0); Mean Platelet Volume 9.4 fL (7.4-10.4); Nucleated Red Blood Cells % 0 %; Platelet Count 499 10^3/uL (130-400); Red Blood Cell Count 3.48 10^6/uL (4.20-5.40); Red Cell Dist. Width 12.8 % (11.5-14.5); White Blood Cell Count 16.6 10^3/uL (4.8-10.8)
[2023-09-16 21:00] LABS: Urine Albumin Negative (Neg - Trace); Urine Bilirubin Negative (Negative); Urine Character Clear (Clear); Urine Color Yellow; Urine Glucose Negative (Negative); Urine Ketone Trace (Negative); Urine Leukocyte Trace (Negative); Urine Nitrite Negative (Negative); Urine Occult Blood Negative (Negative); Urine Urobilinogen 2+ (Neg - 1+)
[2023-09-16 21:09] LABS: Urine Red Blood Cell 0-2 /HPF (0-2)
[2023-09-16 21:10] LABS: Urine Bacteria Few (Negative); Urine Mucus Moderate; Urine White Cell 0-2 /HPF (0-5)
[2023-09-16 21:17] LABS: ALT (SGPT) 27 U/L (0-35); AST (SGOT) 23 U/L (14-36); Albumin 4.1 g/dl (3.5-5.0); Alkaline Phosphatase 67 U/L (38-126); Blood Urea Nitrogen 10 mg/dl (7-17); Calcium 9.9 mg/dl (8.4-10.2); Carbon Dioxide 23 mmol/L (22-30); Chloride 99 mmol/L (98-107); Glucose 131 mg/dl (70-99); Lipase 165 U/L (23-300); Potassium 4.4 mmol/L (3.5-5.1); Sodium 133 mmol/L (135-145); Total Bilirubin 0.4 mg/dl (0.2-1.3); eGFR > 60.00
--- NOTE | 2023-09-16 21:44 | ED.GENMED ---
History of Present Illness
General
Chief Complaint: Abdominal Symptoms
Source: patient
Exam Limitations: none
Time Seen by Provider: 09/16/23 21:07
History of Present Illness
History of Present Illness:
This is a 67 year old female that comes in with c/o abd pain and fever. States that she was just discharge on Friday. States that this all started with a tooth infection. State that she as given Clindamycin which she got C-diff from. State that this
is 1 month and 1 week later and the C-diff was not going away and she had a perforated bowel. States that she was given Zosyn and Vancomycin . Last week she was on Vanco BID and then went home on Augmentin and vanco. Today she just couldn't get
warm. States that she did not sleep well last night and was up at 5am. States that she went to the Pool with the kids and when she got home she slept in her chair. Sate that she went to bed early and she took her temp and it was 101.9. States that
her abd pain was a 5/10 and her temp did come down some. State that she is nauseated with diarrhea. Denies any shaking chills, chest pain, SOB, vomiting, headache, dizziness, urinary burning.
Past History
Past History
ED Past Medical History: Cancer (Skin cancer squamous), HTN, Hypercholesterolemia and Other (DDD, diverticulitis, osteoarthritis, UTI, Shingles, Back pain, C-diff,)
ED Past Surgical History: Gynecological (Tubal ), Orthopedic (right femur repair, Right Total hip replacement ) and Other (Left arm lump removed)
Social History
Tobacco: Former smoker
Alcohol: Daily ( Rum mixed with Diet soda in a 22oz glasses. 4 glasses)
Personal:
Living: with family
Employment: Employed
Family History
Family History: Other (Noncontributory)
Review of Systems
Review of Systems
All Other Systems: ROS reviewed and negative except as documented in HPI and ROS
Constitutional: Reports fever and chills (NO shaking chills but felt cold)
EENT: Reports no symptoms
Respiratory: Reports no symptoms; Denies cough or trouble breathing
Cardiac: Reports no symptoms; Denies chest pain
ABD/GI: Reports abdominal pain, nausea and diarrhea; Denies vomiting
: Reports no symptoms; Denies dysuria, frequency or urgency
Musculoskeletal: Reports no symptoms
Skin: Reports no symptoms
Neurological: Reports no symptoms; Denies dizzy or headache
Phy Exam
General Physical Exam
General Presentation: well appearing and no apparent distress
General age: appears stated age
General Skin: warm and dry
General Habitus: normal
General Mental: alert
General Hydration: appears well hydrated
ENT Exam
ENT Exam: TM's normal, pharynx normal and neck supple
Eye Exam
Eye Exam: EOMI
Cardiovascular Exam
Cardiovascular Exam: regular rate/rhythm, no edema, no murmur and normal peripheral pulses
Pulmonary Exam
Pulmonary Exam: lungs clear, no respiratory distress, no rales, chest non tender, no crackles, no rhonchi, no wheezing and no cough
Gastrointestinal Exam
Gastrointestinal Exam: normal bowel sounds, soft, no organomegaly, no pulsatile mass, non distended and tender (Generalized tenderness with palpation)
Musculoskeletal Exam
Musculoskeletal Exam: full ROM and no edema
Skin Exam
Skin Exam: normal color, warm/dry, no rash and no petechia
Psychiatric Exam
Psychiatric Exam: normal mood/affect
Course
Orders/Labs/Results
Orders:
Orders
09/16/23 20:41
IV Insert/Care/Rem.- Treatment PRN
09/16/23 20:48
Complete Blood Count/With Diff Urgent
Comprehensive Metabolic Panel Urgent
Lipase Urgent
09/16/23 20:54
Urinalysis Reflex To Culture Urgent
Date Specimen was Collected: 09/16/23
Time Specimen was Collected: 20:41
Urine Microscopic Reflex Cult Urgent
09/16/23 21:35
Stool For WBC Urgent
GENNA Source: Feces/Stool
Specimen Description:
Date Specimen was Collected: 09/16/23
Time Specimen was Collected: 21:34
09/16/23 21:36
STOOL [C difficile Antigen & Toxins] Urgent
GENNA Source: Feces/Stool
Specimen Description:
Date Specimen was Collected: 09/16/23
Time Specimen was Collected: 21:34
Stool Culture Urgent
GENNA Source: Feces/Stool
Specimen Description:
Date Specimen was Collected: 09/16/23
Time Specimen was Collected: 21:34
09/16/23 22:08
Ketorolac [Toradol] 30 mg .ROUTE .STK-MED ONE
09/16/23 22:10
Ketorolac [Toradol] 30 mg IV NOW STA
09/16/23 22:31
CT Abd/pelvis W Iv Cont Urgent
Comment:
Reason For Exam: Generalized abd pain
09/16/23 22:32
0.9% Sodium Chloride 1000 ml [Nss] 1,000 ml IV BOLUS
Abnormal Lab Results
09/16/23 09/16/23
20:48 20:54
WBC 16.6 H 10^3/uL
(4.8-10.8)
RBC 3.48 L 10^6/uL
(4.20-5.40)
Hgb 11.4 L g/dL
(12.0-16.0)
Hct 32.5 L %
(37.0-47.0)
MCH 32.8 H pg
(27.0-31.0)
Plt Count 499 H D 10^3/uL
(130-400)
Abs Immat Gran (auto) 0.1 H 10^3/uL
(0-0.05)
Absolute Neuts (auto) 14.2 H 10^3/uL
(1.4-6.5)
Absolute Monos (auto) 0.8 H 10^3/uL
(0.1-0.6)
Immature Gran % 0.6 H %
(0-0.5)
Neutrophils % 85.3 H %
(42.2-75.2)
Lymphocytes % 7.8 L %
(20.5-51.1)
Sodium 133 L mmol/L
(135-145)
Glucose 131 H mg/dl
(70-99)
Urine Ketones Trace A
(Negative)
Urine Urobilinogen 2+ A
(Neg - 1+)
Leukocyte Esterase Rfl Trace A
(Negative)
Urine Bacteria (Reflex) Few A
(Negative)
09/16/23 20:48
09/16/23 20:48
Leukocytosis, H/H slighlty low. Plt elevated, Sodium slightly low, Glucose nonfasting. Urine negative for infection. Lipase normal at 165
Vital Signs
Initial and Last Documented VS:
Initial Vital Signs
Temp Pulse Resp BP Pulse Ox
101.1 F H 111 20 174/92 97
09/16/23 20:35 09/16/23 20:35 09/16/23 20:35 09/16/23 20:35 09/16/23 20:35
Last Documented Vital Signs
Temp Pulse Resp BP Pulse Ox
101.1 F H 76 18 155/76 95
09/16/23 20:35 09/16/23 22:06 09/16/23 22:06 09/16/23 22:06 09/16/23 22:06
MDM/Problems Addressed
Differential Diagnosis Includes:
Colitis, Diverticulitis, C-diff
MDM/Problems Addressed:
This is a 67 year old female that comes in with c/o abd pain and diarrhea. States that she is being treated for C-diff and were here before for a perforated bowel. State that today she couldn't get warm and then she started with a fever.
Will get labs, CT scan, Give IV fluids
Back into see patient. Explained that her blood work shows that her WBC are elevated and that her CT shows diverticulitis with an abscess that is started to decrease. Patient has been on Augmentin and Vanco at home but still developed a fever with
abd pain. Will admit and put back on Zosyn. Hospitalist notified.
Chronic conditions affecting care:
C-diff,
Acute Exacerbation and/or Progression of Chronic Illness:
C-diff
*Radiology
Radiology exam reviewed: radiology read reviewed (CT-Redemonstration of sigmoid diverticulitis. 2.7cm pericolonic abscess which has decreased in size compared to the CT abdomen/pelvis from 09/06/2023)
*Pulse Oximetry
Patient hypoxic: no
*EKG
Interpreted by ED Provider?: NA
Rate: EKG- N/A
*Teacher [employer] Interpretation
Rate: Teacher [employer]- N/A
*Critical Care Note
Total Time (30-74mins, 75-104mins- exclusive of procedures): Not Applicable
ED Attending Note
-
Portions of this chart may have been created with voice recognition software.� Occasional wrong word or��sound alike� substitutions may have occurred due to the inherent limitations of voice recognition software.
Discharge Plan
Departure
Patient Disposition: Admit
Date of Disposition: 09/16/23
Time of Disposition: 23:25
Admit to: Med/Surg
Presentation/result/management discussed w/ accepting MD/DO: Hospitalist
Patient with high blood pressure during this ER visit?: Yes
Condition: Good
Covid-19: Not Applicable
Discharge Problem:
Diverticulitis of intestine with abscess, Fever, Abdominal pain
Prescriptions:
No Action
losartan 100 MG tablet
100 mg PO DAILY
amoxicillin-pot clavulanate [Augmentin] 500-125 mg tablet
1 tab PO BID Qty: 20 0RF
vancomycin 125 mg capsule
125 mg PO BID Qty: 20 0RF
ibuprofen 200 mg Capsule
400 mg PO PRN PRN (Reason: Pain) Qty: 30 0RF
Referrals:
Gonzalez Kwon MD [Family Provider] -
Interventions
Interventions:
*Risk Screen - Suicide Last Done: 09/16/23 20:35
*General Assessment Last Done: 09/16/23 20:35
*Neglect/Abuse Screening Last Done: 09/16/23 20:35
ED- Fall Risk Assessment Last Done: 09/16/23 20:35
ZW-Omgedp-Dqgbtnfhod Assessment Last Done: 09/16/23 22:15
Discharge Date and Time
Print Language: BAHAMIAN
[2023-09-16 21:45] VITALS: BMI 26.1
[2023-09-16 22:06] VITALS: BP 155/76
[2023-09-16] MEDS: TORADOL 30 MG IV (22:11)
[2023-09-16] MEDS: NSS 1000 IV (22:49)
[2023-09-16] MEDS: ZOSYN 50 IV (23:39)
[2023-09-17] VITALS (9 sets, daily range): BP systolic 153–189; BP diastolic 76–98; BMI 25.9
--- NOTE | 2023-09-17 00:07 | HPS.HSE ---
Family Physician
-
Family Physician: Gonzalez Kwon
Chief Complaint
-
abdominal pain and fever
History of Present Illness
67F HX recent admission on 09/06/23 - 09/12/23 with complicated diverticulitis with abscess on Augmentin plus POS C. difficile on PO Vanco 125 twice daily seen at ER for evaluation of break thru fever;
Break thru fever up to 101 at home with abdominal pain
- currently on PO Augmentin for C Diff and PO Vancomycin for POS C. difficile Ag
- acute fever associated with N/V
- associated with chills
- C Diff while she was on Clindamycin 2 months ago but POS Ag treating with PO vanco since last admission
- Admission CT suggest decreased in size pd pericolic abscess 2.7 cm from [address] abdomen/pelvis from 09/06/2023.
@ ER :
T 101.1
Medical History
Past Medical History
Past Medical History: Reports Other
Additional Past Medical History:
Past medical history reviewed:
Hypertension
Recent C. difficile
Recent dental infection
Social history: Lives at home with family. No smoking, drinks couple cocktails nightly, and denies any drug use
Family history: Reviewed and noncontributory
Past Surgical History: Reports Other
Social History
Drug: Other
Living: Other
Family History
Family History: Not pertinent and Other
Allergies / Home Medications
Allergies reflects when Allergies were last updated in [facility].
Home Medications with original date entered in [facility]
Allergy/Medication List:
Allergies
Allergy/AdvReac Type Severity Reaction Status Date / Time
cephalexin [From Keflex] Allergy Rash Verified 09/16/23 20:34
clindamycin Allergy diarrhea Verified 09/16/23 20:34
venom-honey bee Allergy Swelling Verified 09/16/23 20:34
[bee venom (honey bee)]
Home Medications
losartan 100 mg tablet 100 mg PO DAILY Blood Pressure 07/12/20
amoxicillin 500 mg-potassium clavulanate 125 mg tablet (Augmentin) 1 tab PO BID #20 tabs 09/12/23
vancomycin 125 mg capsule 125 mg PO BID #20 caps 09/12/23
ibuprofen 200 mg capsule 400 mg PO Q6HPRN PRN mild pain 09/16/23
lactobacillus comb no.10 20 billion cell capsule (Probiotic) 25,000 mmu cells PO DAILY@1030 09/16/23
Review of Systems
-
EENT: Reports No Symptoms
Respiratory: Reports No Symptoms
Cardiac: Reports No Symptoms
: Reports No Symptoms
Musculoskeletal: Reports No Symptoms
Skin: Reports No Symptoms
Neurological: Reports No Symptoms
Endocrine: Reports No Symptoms
Hematologic/Lymphatic: Reports No Symptoms
Psych: Reports No Symptoms
Physical Exam
Vital Signs
Vital Signs
Temp Pulse Resp BP Pulse Ox
101.1 F H 76 18 155/76 95
09/16/23 20:35 09/16/23 22:06 09/16/23 22:06 09/16/23 22:06 09/16/23 22:06
Physical Exam
General: Well Developed, No Apparent Distress, Conversant and Other (not toxic ); No Appears Chronically Ill
HEENT: Moist mucous membranes
Respiratory: Clear; No Wheezes, Rales or Rhonchi
Cardiac: S1/S2 and Regular Rhythm; No Tachycardia
GI: Soft, Normal Bowel Sounds and Tender (diffuse but not guarded, no rebound tendeness ); No Non Distended or Distended
Genito-urinary: Deferred by me
Skin: Warm and Dry
Neuro: AO x 3
Psych: Calm
Laboratory Results
-
09/16/23 20:48
09/16/23 20:48
Laboratory Results
Total Bilirubin 0.4 mg/dl (0.2-1.3) 09/16/23 20:48
AST 23 U/L (14-36) 09/16/23 20:48
ALT 27 U/L (0-35) 09/16/23 20:48
Alkaline Phosphatase 67 U/L (38-126) 09/16/23 20:48
Lipase 165 U/L (23-300) 09/16/23 20:48
Data Reviewed
-
CT Scan: Report Reviewed by me
Lab Data: Labs Reviewed by me
Old Records: Reviewed
Impression/Plan
-
Reviewed VS: T 101.1 HR 70s BP 155/75 RR 18 Pox 95
Data
WCC 16s
Hgb 11.4 - baseline low 11s
Plt 499
Na 133
Unremarkable CMP
Unremarkable UA
09/16/23 Stool for C Diff Ag pending
08/07/23 POS C Diff Ag
09/16/23 CT Abd/pelvis W Iv Cont
- Redemonstrattion of sigmoid diverticulitis.
- 2.7 cm pericolonic abscess, which has decreased in size compared to the CT abdomen/pelvis from 09/06/2023.
09/06/23 CT Abd/Pel (IV only)
- Acute sigmoid diverticulitis with 5 cm abscess.
- 2.4 cm hepatic cyst.
- 3 cm left ovarian cyst
- 20% compression fracture of T12 and 50% compression fracture of L1
- degenerative disc disease at L5-S1
Last hospitalist admission:
09/06/23 - 09/12/23
- Complicated diverticulitis with abscess
- recent C. difficile: Empiric Vanco 125 twice daily was given for C. difficile.
ASSESSMENT & PLAN
Break thru hi grade fever with chills: NEG UA
CT evidence of decreasing size of pericolic abscess of complicated diverticulitis
Associated sepsis
Hemodynamically stable
Leucocytosis and reactive thrombocytosis due o abscess
- Agree with Zosyn in place of PO Augmentin
- NPO except PO meds and sips of clear for now
- IVF
- DC NSAIDs
- f/u T and WCC
- CRS consult
Recent C. difficile : pathologic vs colonization
HX C Diff while she was on Clindamycin 2 months ago fro dentl work
POS Ag treating with PO vanco since last admission
- cont empiric oral vanco Q12H while on ABx
- add probiotic
- ID consult
Anemia of chronic disease
- stable
- Trend Hgb
Essential Hypertension
- cont. Losartan
Hyponatremia
Na 133 on admission-
- slowly improving
DVT Px: LMWH
Code: Full
IP TLM
--- NOTE | 2023-09-17 02:00 | PTCARENOTE ---
Received pt from ED into 2128. AAOx3. Reports 1 out of 10 abdominal pain. Ambulatory in room, without assistance. Participated in admission questions. Reported drinking about 4 alcoholic drinks daily, last drink was on Friday. Notified HENRIQUE BARNES
protocol ordered and initiated.
Refusing monitor car operator. Ordered telemetry for risk of sepsis. Asked patient why she is refusing and she stated, 'I have no reason, I just don't want to be hooked up' and 'I don't feel like I am getting septic.' Educated pt on use of telemetry
for sepsis, risks of refusing, and the monitor car operator (portable). Pt states she understands and would like to refuse. CREDIT RISK MANAGEMENT DIRECTOR aware.
[2023-09-17] MEDS: NSS 1000 IV ×3 (02:18→20:55)
[2023-09-17 02:39] LABS: Lactic Acid 0.9 mmol/L (0.7-2.0)
--- NOTE | 2023-09-17 03:50 | W.PN.UPDATE ---
Update Note
Progress Note Update
RN notified MITOCHONDRIAL DISORDERS COUNSELOR, patient do not want to keep tele monitor on. Patient is AAOx3, RN advised the reason to keep the telemonitor on. Patient insisted she will leave AMA if she has to keep it on. Patient is capable of making decisions, RN advised the
risks and benefits, patient verbalized understanding. Tele removed.
Patient BP manually noted to be 182/86 HR 81, denies any pain or discomfort. Hx of HTN and takes Losartan 100mg PO daily. Patient requested Losartan early time than Hydralazine IV. RN will pull Losartan 100mg to be given now.
Patient is placed on MSAS protocol, nightly drinker, last drink on Friday.
[2023-09-17] MEDS: COZAAR 100 MG PO (03:51)
--- NOTE | 2023-09-17 05:19 | PTCARENOTE ---
On admission, BP 178/97 at 0137. Recheck at 0317, BP 168/89 automatic. 182/86 manual. Notified ECONOMIC RESEARCH ANALYST. Instructed this RN to give 0800 Losartan dose early. See APR. Recheck BP, 176/92. ECONOMIC RESEARCH ANALYST aware, no new orders. Pt resting comfortably in bed, no
complaints at this time.
[2023-09-17] MEDS: ZOSYN 50 IV ×3 (06:04→16:57)
[2023-09-17] MEDS: FIRVANQ 125 MG PO ×2 (08:18→20:49)
--- NOTE | 2023-09-17 09:00 | PTCARENOTE ---
Patient refusing Tele monitor, pt educated, made aware. plan of care ongoing. no s/s of distress noted at time.
[2023-09-17 09:08] LABS: ALT (SGPT) 21 U/L (0-35); AST (SGOT) 18 U/L (14-36); Albumin 3.5 g/dl (3.5-5.0); Alkaline Phosphatase 61 U/L (38-126); Blood Urea Nitrogen 7 mg/dl (7-17); Carbon Dioxide 25 mmol/L (22-30); Chloride 101 mmol/L (98-107); Estimated Creatinine Clearance 73 ml/min; Glucose 112 mg/dl (70-99); Magnesium 1.7 mg/dl (1.6-2.3); Potassium 3.8 mmol/L (3.5-5.1); Sodium 134 mmol/L (135-145); Total Bilirubin 0.7 mg/dl (0.2-1.3); Total Protein 6.3 g/dl (6.3-8.2); eGFR > 60.00
--- NOTE | 2023-09-17 09:32 | CON.CRS ---
Consultation
-
Date/Time Consultation Requested: 09/17/2023, 1:46
Date/Time Consultation Performed: 09/17/2023, 08:15
Requesting Provider: Merrill Ty MD
Performing Provider: Kai Crowell MD
Reason for Consultation: diverticulitis
Medical History
-
Chief Complaint: abdominal pain/fever
History of Present Illness:
67-year-old female, recently admitted from 09/06/2023 to 09/12/2023 due to sigmoid diverticulitis with an associated abscess presents to the ER late last night complaining of abdominal pain. We had initially seen the patient in consultation and she
did not require surgery during her admission. This episode is her fourth episode and she had recent C. difficile a month ago after taking antibiotics for a dental appointment. She is also due for a colonoscopy.
After discharge on 719 she had initially been doing better. However yesterday she noticed abdominal pain and chills all day as well as a temperature of 101.9 at home. Due to these symptoms she came to the ER. She has been following a low residue
diet. She does state that her abdominal pain was less than when she was admitted during her previous admission. She did have some associated nausea but had not vomited. She still has a 'goose poops'. She currently has flatus and she is urinating
without difficulty. She does not feel bloated. She feels better since she was admitted. Admission her WBC was 16.6. CT of the abdomen and pelvis shows redemonstration of sigmoid diverticulitis with a 2.7 cm pericolonic abscess which is decreased
in size since 09/06/2023. We have been consulted for further surgical opinion.
Past Medical History
Past Medical History: Other (Cancer (skin (squamous)), Diverticulitis and Other (UTI, Shingles))
Past Surgical History: Other (Gynecological (Tubal), Orthopedic (R TKA))
Social History
Tobacco: Former Smoker
Alcohol: Daily
Living: With Family
Family History
Family History: Reviewed & Not Pertinent
Allergies / Home Medications
Allergy/AdvReac Type Severity Reaction Status Date / Time
cephalexin [From Keflex] Allergy Rash Verified 09/16/23 20:34
clindamycin Allergy diarrhea Verified 09/16/23 20:34
venom-honey bee Allergy Swelling Verified 09/16/23 20:34
[bee venom (honey bee)]
�Medication �Instructions �Recorded �Confirmed �Type
losartan 100 mg tablet 100 mg PO DAILY Blood Pressure 07/12/20 09/16/23 History
amoxicillin 500 mg-potassium 1 tab PO BID #20 tabs 09/12/23 09/16/23 Rx
clavulanate 125 mg tablet
(Augmentin)
vancomycin 125 mg capsule 125 mg PO BID #20 caps 09/12/23 09/16/23 Rx
ibuprofen 200 mg capsule 400 mg PO Q6HPRN PRN mild pain 09/16/23 09/16/23 History
lactobacillus comb no.10 20 25,000 mmu cells PO DAILY@1030 09/16/23 09/16/23 History
billion cell capsule (Probiotic)
Review of Systems
-
History Source: Patient
Constitutional: Fever and Chills
Abdomen/GI: Abdominal Pain and Nausea
A 10 point review of systems was completed, and was negative except as per HPI.
Physical Exam
Vital Signs
Temp 98.6 F 09/17/23 07:15
Pulse 74 09/17/23 07:15
Resp Rate 18 09/17/23 07:15
Blood pressure 159/89 09/17/23 07:15
SaO2 100 09/17/23 07:15
09/16/23 09/17/23 09/18/23
06:59 06:59 06:59
Actual Weight 72.62 kg
Body Mass Index (BMI) 25.9
Lab Results / Allergies
09/17/23 08:07
WBC 16.6 10^3/uL (4.8-10.8) H 09/16/23 20:48
Hgb 11.4 g/dL (12.0-16.0) L 09/16/23 20:48
Hct 32.5 % (37.0-47.0) L 09/16/23 20:48
Plt Count 499 10^3/uL (130-400) H D 09/16/23 20:48
Abs Immat Gran (auto) 0.1 10^3/uL (0-0.05) H 09/16/23 20:48
Neutrophils % 85.3 % (42.2-75.2) H 09/16/23 20:48
Allergy/AdvReac Type Severity Reaction Status Date / Time
cephalexin [From Keflex] Allergy Rash Verified 09/16/23 20:34
clindamycin Allergy diarrhea Verified 09/16/23 20:34
venom-honey bee Allergy Swelling Verified 09/16/23 20:34
[bee venom (honey bee)]
Physical Exam
General: Well Developed and Well Nourished
GI: Soft, Non Tender and Non Distended
Skin: Warm and Dry
Neuro: AO x 3
Psych: Calm
Data Reviewed
-
CT Scan: Image Personally Visualized and interpreted, Report Reviewed by me and Discussed with Patient
Labs: Labs Reviewed by me, Discussed with Physician and Discussed with Patient
Old Records: Reviewed
Assessment / Plan
-
Assessment: 67 yo female with sigmoid diverticulitis. 2.7 cm pericolonic abscess (smaller than last CT)
Plan:
1. Trend WBC and vitals.
2. Continue IV fluids and IV antibiotics.
3. Okay for clear liquid diet.
4. No need for urgent surgery right now. If she were to worsen she will need a colectomy with colostomy creation.
5. Will need eventual colonoscopy.
[2023-09-17] MEDS: VISBIOME 1 CAP PO (10:28)
--- NOTE | 2023-09-17 10:30 | CM ---
Patient seen at bedside. Patient stated that she lives with her in a 2 story home. Patient has no DME and her PCP is Dr. Kwon, Patient uses the [facility] on [facility] in [place]. Patient stated that she does not have any problems with
alcohol and does not need any supports for treatment. Patient explained that she has been very careful since her last hospitalization but does not feel that she needs any discharge supports at discharge. Patient plan is for discharge home with no
needs.
Plan; home with no needs anticipated.
--- NOTE | 2023-09-17 11:57 | W.PN.HOSP.TC ---
Addendum entered and electronically signed by Enrique Louise MD 09/18/23 07:29:
Pt was requesting Toradol. Informed nurse that I would have to return to unit to discuss with pt any past history of gastritis/PUD prior to instituting, especially in pt with hx of Etoh as well an an acute GI process where she was not receiving
regular meals. Also nurse noted elevated BP and as such ordered prn Hydralazine. Had to complete items involving other patients and then would return to discuss options with pt. Nurse then contacted me and said that since I was not able to order
what pt was requesting, the patient wanted a new hospitalist. Discussed with Dr. Pinzon who agreed to accept pt transfer to his service.
Addendum entered and electronically signed by Ernique Louise MD 09/17/23 12:35:
Pt does not want Tylenol, will order prn Tramadol
Original Note:
Today's Communication/Plan
-
follow labs
continue Zosyn and oral Vanco
Assessment / Plan
Assessment / Plan
Break thru hi grade fever with chills: NEG UA
recent hospitalization 09/05-, was dc on Augmentin
CT evidence of decreasing size of pericolic abscess of complicated diverticulitis
Associated sepsis
Hemodynamically stable
Leucocytosis and reactive thrombocytosis due o abscess
WBC on dc was 7.1-->on readmission 16.6k (repeat from this morning still pending)
- Agree with Zosyn in place of PO Augmentin
- NPO except PO meds and sips of clear for now
- IVF
- DC NSAIDs
- f/u T and [facility]CC
- CRS consult - input appreciated
CT abd: Redemonstration of sigmoid diverticulitis. 2.7 cm pericolonic abscess, which has decreased in size compared to the CT abdomen/pelvis from 09/06/2023.
Pt requesting alternative to Dilaudid for pain, mentioned Toradol, would prefer not due to potential GI toxicity, will try Tylenol, consider Tramadol
Recent C. difficile : pathologic vs colonization
HX C Diff while she was on Clindamycin 2 months ago fro dental work
POS Ag treating with PO vanco since last admission
- cont empiric oral vanco Q12H while on ABx
- add probiotic
- ID consult
Anemia of chronic disease
- stable
- Trend Hgb
Essential Hypertension
- cont. Losartan, will order Hydralazine prn
Hyponatremia
Na 133 on admission-
- slowly improving
complex situation
DVT Px: LMWH
Code: Full
IP TLM
Anticipated Discharge: > 48 hours
Subjective/Interval History
-
Date of Service: September 17, 2023
Still with abdominal pain
Objective Data
-
Labs:
Laboratory Results
09/17/23
08:07
WBC Pending
Hgb Pending
Hct Pending
Plt Count Pending
Sodium 134 L
Potassium 3.8
Chloride 101
Carbon Dioxide 25
BUN 7
Creatinine 0.7
Glucose 112 H
Calcium 9.0
Total Bilirubin 0.7
AST 18
ALT 21
Alkaline Phosphatase 61
Vital Signs:
Vital Signs
Temp Pulse Resp BP Pulse Ox
99.1 F 74 18 189/93 99
09/17/23 11:10 09/17/23 11:10 09/17/23 11:10 09/17/23 11:10 09/17/23 11:10
I&O
09/16/23 09/17/23 09/18/23
06:59 06:59 06:59
Intake Total 120 / 120
Balance 120 / 120
Review of Systems
-
History Source: Patient
Constitutional: Reports Fever (Tmax 101.1)
Respiratory: Reports No Symptoms; Denies Cough
Cardiac: Reports No Symptoms; Denies Chest Pain
Abdomen/GI: Reports Abdominal Pain and Nausea; Denies Diarrhea
Physical Exam
-
General: Well Developed, Well Nourished and No Apparent Distress
HEENT: Normocephalic, Atraumatic and Moist Mucous Membranes
Respiratory: Clear to Auscultation; Negative Wheezes, Rales or Rhonchi
Cardiac: Regular Rhythm and S1/S2
GI: Soft, Normal Bowel Sounds and Tender
Musculoskeletal: No Clubbing, No Cyanosis and No Edema
Skin: Warm and Dry
Neuro: Awake, Alert and Oriented
Psych: Calm and Intact Judgement/Insight
[2023-09-17 12:15] LABS: Hematocrit 31.6 % (37.0-47.0); Hemoglobin 10.5 g/dL (12.0-16.0); Mean Corp Hgb Conc. 33.2 g/dL (33.0-37.0); Mean Corpuscular Hgb 32.3 pg (27.0-31.0); Mean Corpuscular Volume 97.2 fL (81.0-99.0); Mean Platelet Volume 9.9 fL (7.4-10.4); Platelet Count 409 10^3/uL (130-400); Red Blood Cell Count 3.25 10^6/uL (4.20-5.40); Red Cell Dist. Width 12.8 % (11.5-14.5); White Blood Cell Count 10.8 10^3/uL (4.8-10.8)
--- NOTE | 2023-09-17 12:30 | PTCARENOTE ---
pt bp 189/93,74.. denies chest pain, no s/s of distress noted. dr. Louise aware. ordered IV hydralazine prn . Pt refused bp iv med. Dr. Louise made aware. no new orders at this time.
--- NOTE | 2023-09-17 13:20 | PTCARENOTE ---
Patient refused her PRN pain Meds Dilaudid, Tylenol , and Tramadol as ordered. Pt states she doesn't want to take opioids. Requesting Toradol, Dr Louise aware.
--- NOTE | 2023-09-17 15:10 | PTCARENOTE ---
patient bp now at 180/98,81. Pt denies chest pain/ no sob. No s/s/ of distress noted. Dr. Louise aware. Pt refused her ordered IV Hydralazine.
--- NOTE | 2023-09-17 19:10 | W.PN.UPDATE ---
Update Note
Progress Note Update
Cross Coverage Update:
Notified of ID concern with regards to Alcohol Withdrawal. MSAS protocol ordered accordingly.
--- NOTE | 2023-09-17 19:28 | CON.ID ---
Consultation
-
Date/Time Consultation Requested: 09/16/23 1:36
Date/Time Consultation Performed: 09/17/23 17:02
Requesting Provider: Dr Ty
Performing Provider: Dr Lerma
Reason for Consultation: diverticulitis with intraabdominal abscess
Chief Complaint / Past History
Chief Complaint
fevers, abdominal discomfort
History of Present Illness
Ms Matias is a 67 year old female with history of recurrent diverticulitis and c difficile. Unfortunately her most recent bout of diverticulitis was complicated by a perforation and small, nondrainable intrabadominal abscess approximately 4 cm in
size; she was discharged with a course of augmentin which she took and she is also on oral vancomycin prophyalxis. Then last night she has increasing abdominal discomfort and objective fevers and she represented here.
Of note drinks 3-4 mixed drinks per night every night.
Since arrival here she has been febrile to 101, bp and hr stable, wbc initially 16 with a left shift, cr 0.7, c difficile screen negative this visit, blood cultures last visit finalized negative. Repeat Ct scan showed about a 5 cm abscess, repeat
CT scan with 2 cm abscess. Patients leukcytosis and fevers resolved with the switch from augmentin to zosyn. ID is consulted for assistance with management.
Past History
Additional Past Medical History:
Hypertension
Recent C. difficile
Recent dental infection
Additional Past Surgical History:
dental
Allergy History:
cephalexin [From Keflex] Allergy (Verified 09/16/23 20:34)
Rash
venom-honey bee [bee venom (honey bee)] Allergy (Verified 09/16/23 20:34)
Swelling
clindamycin Adverse Reaction (Verified 09/17/23 17:11)
C difficile diarrhea
Medications Reviewed: Yes
Social History
Tobacco: Non-Smoker
Alcohol: Daily (3-4 mixed drinks every night)
Drug: None
Family History
Family History: Not Pertinent
Review of Systems
Review of Systems
General: Fever and Chills
All systems: All other systems were reviewed and were negative
Vital Signs
Temp Pulse Resp BP Pulse Ox
99.0 F 81 16 180/98 99
09/17/23 14:53 09/17/23 14:53 09/17/23 14:53 09/17/23 14:53 09/17/23 14:53
Physical Exam
Physical Exam
Constitutional: No Acute Distress
Cardiovascular: Regular Rate and S1/S2; Negative Murmur or Rub
Pulmonary: Clear and Symmetric; Negative Wheezes, Rales or Rhonchi
Gastrointestinal: Soft, Non Tender, Non Distended and Normal Bowel Sounds
Skin: Warm and Dry; Negative Rash or Jaundice
Lab / Diagnostic Study Results
09/17/23 08:07
09/17/23 08:07
Abs Immat Gran (auto) 0.1 10^3/uL (0-0.05) H 09/16/23 20:48
Absolute Neuts (auto) 14.2 10^3/uL (1.4-6.5) H 09/16/23 20:48
Absolute Lymphs (auto) 1.3 10^3/uL (1.2-3.4) 09/16/23 20:48
Absolute Monos (auto) 0.8 10^3/uL (0.1-0.6) H 09/16/23 20:48
Absolute Basos (auto) 0.1 10^3/uL (0-0.2) 09/16/23 20:48
Immature Gran % 0.6 % (0-0.5) H 09/16/23 20:48
Neutrophils % 85.3 % (42.2-75.2) H 09/16/23 20:48
Lymphocytes % 7.8 % (20.5-51.1) L 09/16/23 20:48
Monocytes % 4.8 % (1.7-9.3) 09/16/23 20:48
Eosinophils % 1.0 % (0-6) 09/16/23 20:48
Basophils % 0.5 % (0-2) 09/16/23 20:48
Lactic Acid Cancelled 09/17/23 13:36
Ur Squamous Epith Cells 6-10 /LPF (Few) 09/16/23 20:54
Microbiology Results
Micro:
09/16/23 21:36 Salmonella/Shigella Culture - Pending
Feces/Stool Campylobacter Culture - Pending
Shiga Toxin Test - Pending
Stool Leukocytes - Final
09/16/23 21:36 C. difficile GDH Antigen & Toxins - Final
Feces/Stool Negative for toxigenic C.difficile
Assessment / Plan
Intraabdominal Abscess
Fever
Diverticulitis
Leukocytosis - resolved
- suspect a resistant gram negative given prompt resolution of fever and chills with switch from augmentin to zosyn
- blood cultures finalized negative last visit, no need for further cultures
- QTc 470
- patient a daily drinker taking 3-4 cocktails per night; I have disucssed the need to cut back slowly through time or risk of cirrhosis. She understands that abrupt cessation could lead to withdrawal which is quite dangerous. suggested msas
protacol
- metronidazole not an option, will add ciprofloxcain to the previous augmentin and oral vancomcyin
- would plan about another 4 weeks of antibiotics with follow up and repeat CT scan along with cbc, cmp, esr, crp shortly before a follow up visit
- follow up with colorectal surgery as well
--- NOTE | 2023-09-17 20:00 | PTCARENOTE ---
Patient refused PRN Hydralazine; BP 172/90.
[2023-09-17] MEDS: CIPRO 500 MG PO (20:49)
[2023-09-17] MEDS: AUGMENTIN 875 MG/125 MG 1 TABLET PO (20:50)
[2023-09-17] MEDS: ULTRAM 50 MG PO (20:56)
[2023-09-18 03:22] VITALS: BP 138/80
[2023-09-18 06:00] VITALS: BMI 25.7
[2023-09-18 07:40] VITALS: BP 164/93
[2023-09-18 08:15] LABS: % Basophils 0.6 % (0-2); % Eosinophils 2.4 % (0-6); % Immature Granulocytes 0.6 % (0-0.5); % Lymphocytes 13.4 % (20.5-51.1); % Monocytes 5.9 % (1.7-9.3); % Neutrophils 77.1 % (42.2-75.2); Absolute Basophils 0.1 10^3/uL (0-0.2); Absolute Eosinophils 0.2 10^3/uL (0-0.7); Absolute Immature Granulocytes 0.1 10^3/uL (0-0.05); Absolute Lymphocytes 1.2 10^3/uL (1.2-3.4); Absolute Monocytes 0.5 10^3/uL (0.1-0.6); Hematocrit 29.8 % (37.0-47.0); Hemoglobin 10.2 g/dL (12.0-16.0); Mean Corp Hgb Conc. 34.2 g/dL (33.0-37.0); Mean Corpuscular Hgb 33.4 pg (27.0-31.0); Mean Corpuscular Volume 97.7 fL (81.0-99.0); Mean Platelet Volume 9.9 fL (7.4-10.4); Nucleated Red Blood Cells % 0 %; Platelet Count 366 10^3/uL (130-400); Red Blood Cell Count 3.05 10^6/uL (4.20-5.40); Red Cell Dist. Width 12.7 % (11.5-14.5)
[2023-09-18] MEDS: FIRVANQ 125 MG PO (08:39)
--- NOTE | 2023-09-18 08:40 | W.PN.CRS1 ---
Today's Communication / Plan
-
Ok for low residue
If tolerating and wbc normal, ok for d/c this PM from CRS perspective
Assessment/Plan
-
67-year-old female with PMH of HTN, recurrent diverticulitis and recent C. difficile infection who presented initially on 09/05 for diverticulitis with pericolonic abscess, not amenable for IR drainage, treated nonoperatively with IV antibiotics and
discharged on 09/11 who represents for mild abdominal pains and fever. She was doing well since discharge, but noted some mild vague lower abdominal pain over the weekend with a fever that she measured at home yesterday of 101.9, so she presented to
the ED. WBC was 16.[address] showed sigmoid diverticulitis, improved, with 2.7 cm abscess, decreased from 5 cm.
AFVSS
Labs pending
� No acute surgical intervention currently indicated; continue nonoperative measures and monitor fever curve
� Continue Augmentin, cipro and vanc; appreciate ID
� Okay for low residue
� OOB/IS
� DVT PPx
� Appreciate hospitalist
Dispo- If tolerating low residue and wbc normal, ok for d/c this PM from CRS perspective; f/u with me in 3-4 weeks
Subjective Data
Subjective Data
Date of Service: September 18, 2023
No overnight events.
Pain improved, still having some cramping/discomfort in lower abdomen.
Denies nausea/vomiting. Tolerating clears.
+flatus +BMs (not liquid, not constipated) +voiding
Pt is OOB.
Objective Data
-
Vital Signs
Temp Pulse Resp BP Pulse Ox
98.2 F 77 12 138/80 98
09/18/23 03:22 09/18/23 03:22 09/18/23 03:22 09/18/23 03:22 09/18/23 03:22
Intake & Output
09/17/23 09/18/2324
06:59 06:59 06:59
Intake Total 120 / 120 2160 / 2160
Balance 120 / 120 2160 / 2160
Intake:
Oral fluids 120 / 120 960 / 960
IV fluids (Total) 1200 / 1200
Other:
Number of approximated SMALL 8
amounts of urine
Number of approximated MODERATE 1
amounts of urine
Lab Results
09/18/23 07:55
Physical Exam
-
General: No Acute Distress and AOx3
HEENT: Grossly Normal
Abdomen: Soft, Non Distended, Tender (Minimally tender in the suprapubic area), No Guarding and No Rebound
Skin: Warm and Dry
[2023-09-18] MEDS: CIPRO 500 MG PO (08:41)
[2023-09-18] MEDS: AUGMENTIN 875 MG/125 MG 1 TABLET PO (08:42)
[2023-09-18] MEDS: COZAAR 100 MG PO (08:42)
[2023-09-18] MEDS: ULTRAM 50 MG PO (08:47)
[2023-09-18 09:27] LABS: Blood Urea Nitrogen 2 mg/dl (7-17); Carbon Dioxide 21 mmol/L (22-30); Chloride 104 mmol/L (98-107); Estimated Creatinine Clearance 85 ml/min; Glucose 98 mg/dl (70-99); Sodium 134 mmol/L (135-145); eGFR > 60.00
[2023-09-18] MEDS: NSS IV (09:46)
--- NOTE | 2023-09-18 09:48 | W.PN.ID1 ---
Date of Service
Date of Service: September 18, 2023
Today's Communication
- continue ciprofloxacin in addition to the previous Augmentin and oral vancomycin
- would plan about another 4 weeks of antibiotics with follow up and repeat CT scan along with cbc, cmp, esr, crp shortly before a follow up visit - I have put in the follow up blood work and imaging
- follow up with colorectal surgery as well
- follow up with me in about 3 weeks
Assessment / Plan
Intraabdominal Abscess
Fever
Diverticulitis
Leukocytosis - resolved
- suspect a resistant gram negative given prompt resolution of fever and chills with switch from augmentin to zosyn
- blood cultures finalized negative last visit, no need for further cultures
- QTc stable at 465 today
- patient a daily drinker taking 3-4 cocktails per night; I have discussed the need to cut back slowly through time or risk of cirrhosis. She understands that abrupt cessation could lead to withdrawal which is quite dangerous.
- continue ciprofloxacin in addition to the previous Augmentin and oral vancomycin
- would plan about another 4 weeks of antibiotics with follow up and repeat CT scan along with cbc, cmp, esr, crp shortly before a follow up visit - I have put in the follow up blood work and imaging
- follow up with colorectal surgery as well
- follow up with me in about 3 weeks; reviewed red flags she will call if alarm symptoms
Chief Complaint
-: Other (intraabdominal abscess)
Subjective / Review of Systems
no further fevers
bp stable
without leukocytosis
L shift resolving
cr stable
in better spirits
some abdominal pressure but no pain
has appetite
stool like mashed potatoes
Vital Signs / Physical Exam
Vital Signs
Vital Signs
Temp Pulse Resp BP Pulse Ox
98.5 F 69 16 164/93 98
09/18/23 07:40 09/18/23 08:42 09/18/23 07:40 09/18/23 08:42 09/18/23 07:40
Physical Exam
Constitutional: No Acute Distress
Cardiovascular: Regular Rate and S1/S2; Negative Murmur or Rub
Pulmonary: Clear and Symmetric; Negative Wheezes or Rales
Gastrointestinal: Soft, Non Tender, Non Distended and Normal Bowel Sounds
Skin: Warm and Dry; Negative Rash or Jaundice
Objective Data
Lab Data
Lab Results
09/18/23 07:55
09/18/23 07:55
Estimated Creat Clear 85 ml/min 09/18/23 07:55
Lactic Acid Cancelled 09/17/23 13:36
Total Bilirubin 0.7 mg/dl (0.2-1.3) 09/17/23 08:07
AST 18 U/L (14-36) 09/17/23 08:07
ALT 21 U/L (0-35) 09/17/23 08:07
Alkaline Phosphatase 61 U/L (38-126) 09/17/23 08:07
Most recent labs reviewed.
Micro Results:
09/16/23 21:36 Salmonella/Shigella Culture - Pending
Feces/Stool Campylobacter Culture - Pending
Shiga Toxin Test - Final
No E. coli Shiga Toxin 1 or 2 detected.
Stool Leukocytes - Final
09/16/23 21:36 C. difficile GDH Antigen & Toxins - Final
Feces/Stool Negative for toxigenic C.difficile
Care Review
Plan reviewed with: Physician (Dr Pinzon)
[2023-09-18] MEDS: VISBIOME 1 CAP PO (10:26)
--- NOTE | 2023-09-18 10:29 | CM ---
Addendum entered by Estee Abreu 09/18/23 11:15:
IMM was reviewed with patient and Sue signed. Copy given to patient and original placed on patient's chart.
Original Note:
CM reviewed patient's chart. Spoke with attending, Dr. Pinzon who shared plan is to discharge patient today. Will discuss with patient.
DISCHARGE DISPOSITION:
Home with .
--- NOTE | 2023-09-18 10:31 | W.DS.TRANS ---
DC Summary - Coffee Taster
-
Discharge Instructions:
Discharge Diagnosis/Procedures Acute diverticulitis
Diet Low Residue
Instructions:
Stand-Alone Forms:
Changes to Home Medications: Yes
Discharge Medications:
DC Medications w/original date entered in [facility]
losartan 100 mg tablet 100 mg PO DAILY Blood Pressure 07/12/20
ibuprofen 200 mg capsule 400 mg PO Q6HPRN PRN mild pain 09/16/23
lactobacillus comb no.10 20 billion cell capsule (Probiotic) 25,000 mmu cells PO DAILY@1030 Supplement 09/16/23
amoxicillin 875 mg-potassium clavulanate 125 mg tablet 1 tab PO Q12 #56 tabs 09/18/23
ciprofloxacin HCl 500 mg tablet 500 mg PO BID #56 tabs 09/18/23
vancomycin 125 mg capsule 125 mg PO BID #56 caps 09/18/23
Home Medication Changes
Additional 4 weeks of antibiotics.
Pending Results: No
[2023-09-18 11:37] VITALS: BP 155/77
== END 2023-09-18 12:30 | disposition home or self-care (01) | DRG 872 ==
LOC: 2 NORTH 01:29
PROVIDERS: Emergency Medicine; Internal Medicine; ADMITTING PHYSICIAN Internal Medicine; ATTENDING PHYSICIAN Internal Medicine; CONSULT PHYSICIAN Student in an Organized Health Care Education/Training Program; EMERGENCY PHYSICIAN Emergency Medicine; FAMILY PHYSICIAN Internal Medicine; OTHER PHYSICIAN Surgery
DX: A41.9 Sepsis, unspecified organism (principal); K57.20 Diverticulitis of large intestine with perforation and abscess without bleeding; E87.1 Hypo-osmolality and hyponatremia; D63.8 Anemia in other chronic diseases classified elsewhere; I10 Essential (primary) hypertension; E78.00 Pure hypercholesterolemia, unspecified; M19.90 Unspecified osteoarthritis, unspecified site; Z79.899 Other long term (current) drug therapy; Z87.440 Personal history of urinary (tract) infections; Z85.828 Personal history of other malignant neoplasm of skin; Z87.19 Personal history of other diseases of the digestive system; Z86.19 Personal history of other infectious and parasitic diseases; Z87.891 Personal history of nicotine dependence; Z88.1 Allergy status to other antibiotic agents; Z96.641 Presence of right artificial hip joint; Z96.651 Presence of right artificial knee joint
CPT/HCPCS: 74177; 80048; 80053; 81003; 81015; 83605; 83690; 83735; 85025; 85027; 87045; 87046; 87077; 87324; 87427; 87449; 89055; 93005; 99285; Q9967

== ENCOUNTER → 2023-10-10 10:17 | Outpatient (REF) | payer OTHER, SELFPAY | LOC: HWRAD 10:17 | PROVIDERS: ATTENDING PHYSICIAN Student in an Organized Health Care Education/Training Program; FAMILY PHYSICIAN Internal Medicine | DX: K65.1 Peritoneal abscess (principal) | CPT/HCPCS: 74177; Q9967 ==

== ENCOUNTER → 2023-11-04 06:26 | Day surgery (SDC) | payer OTHER, SELFPAY | LOC: GI 06:26 | PROVIDERS: ATTENDING PHYSICIAN Surgery; FAMILY PHYSICIAN Internal Medicine | DX: K64.9 Unspecified hemorrhoids (principal); K56.699 Other intestinal obstruction unspecified as to partial versus complete obstruction; K52.9 Noninfective gastroenteritis and colitis, unspecified; K57.32 Diverticulitis of large intestine without perforation or abscess without bleeding; K57.30 Diverticulosis of large intestine without perforation or abscess without bleeding | CPT/HCPCS: 45378 ==

== ENCOUNTER 2023-11-06 12:32 | Inpatient (IN) | payer OTHER, SELFPAY ==
[2023-11-03 08:47] LABS: Hematocrit 34.5 % (37.0-47.0); Hemoglobin 11.6 g/dL (12.0-16.0); Mean Corp Hgb Conc. 33.6 g/dL (33.0-37.0); Mean Corpuscular Hgb 30.4 pg (27.0-31.0); Mean Corpuscular Volume 90.3 fL (81.0-99.0); Mean Platelet Volume 9.9 fL (7.4-10.4); Platelet Count 358 10^3/uL (130-400); Red Blood Cell Count 3.82 10^6/uL (4.20-5.40); Red Cell Dist. Width 12.8 % (11.5-14.5); White Blood Cell Count 10.8 10^3/uL (4.8-10.8)
[2023-11-03 08:56] LABS: INR 1.15; PT 14.6 Sec (11.4-14.6)
[2023-11-03 08:57] LABS: APTT 36.4 Sec (23.4-35.0)
[2023-11-03 09:16] LABS: ALT (SGPT) < 10 U/L (0-35); AST (SGOT) 16 U/L (14-36); Albumin 4.2 g/dl (3.5-5.0); Alkaline Phosphatase 72 U/L (38-126); Blood Urea Nitrogen 5 mg/dl (7-17); Calcium 9.9 mg/dl (8.4-10.2); Carbon Dioxide 24 mmol/L (22-30); Chloride 97 mmol/L (98-107); Glucose 107 mg/dl (70-99); Potassium 4.2 mmol/L (3.5-5.1); Sodium 137 mmol/L (135-145); Total Bilirubin 0.6 mg/dl (0.2-1.3); Total Protein 7.2 g/dl (6.3-8.2); eGFR > 60.00
[2023-11-03 09:39] VITALS: BMI 25.7
[2023-11-03 10:44] LABS: Glycohemoglobin (HgbA1c) 5.6 % (4.0-5.6)
[2023-11-06] VITALS (7 sets, daily range): BP systolic 125–182; BP diastolic 62–86
[2023-11-06] MEDS: TYLENOL 1000 MG PO (11:39)
[2023-11-06] MEDS: HEPARIN 5000 UNITS SC (11:39)
[2023-11-06] MEDS: CELEBREX 200 MG PO (11:40)
[2023-11-06] MEDS: ENTEREG 12 MG PO (11:41)
[2023-11-06] MEDS: NORMOSOL-R/PLASMALYTE-A 1000 IV (11:41)
[2023-11-06] MEDS: LYRICA 150 MG PO (11:41)
--- NOTE | 2023-11-06 21:33 | W.IMMPOSTOP ---
Surgical Immed Post Op Note
-
Primary Surgeon: Kai Crowell MD
Assisting Surgeon: BRADLEY May; Enrique Santiago MD
Pre-op Diagnosis: chronic diverticulitis
Post-op Diagnosis: chronic diverticulitis
Procedure Performed: hand-assisted robotic low anterior resection, lysis of adhesions, flexible sigmoidoscopy, TAP block
Anesthesia Type: general
Specimen / Cultures: rectosigmoid
Estimated Blood Loss: 75mL
UOP: 600mL
IVF: 3.3L crystalloid
Complications: none
Operative Findings: severe inflammation from the distal sigmoid to the proximal rectum with inflammatory changes to the mesentery up to the mid-sigmoid; pericolonic abscess anteriorly between the rectum and uterus; identified ureters, has
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
transected distally on the mid-sigmoid on healthy colon; seated anvil on proximal colon extracorporeally and performed EEA stapled anastomosis; donuts intact x2, negative leak test
[2023-11-06] MEDS: TORADOL 15 MG IV (21:42)
[2023-11-06] MEDS: LR 1000 IV (21:45)
[2023-11-06] MEDS: DILAUDID 0.5 MG IV (22:01)
[2023-11-06] MEDS: INVANZ 60 MG IV (22:06)
--- NOTE | 2023-11-06 22:08 | OR.RPT ---
Operative Report
Operative Report
DATE OF OPERATION: 11/07/2023
SURGEON: Kai Crowell MD
PREOPERATIVE DIAGNOSIS: Chronic diverticulitis with abscess
POSTOPERATIVE DIAGNOSIS: Chronic diverticulitis with abscess
OPERATION: Hand-assisted robotic low anterior resection, adhesiolysis greater than 1 hr, mesenteric angiography with ICG, flexible sigmoidoscopy, laparoscopic TAP block
ASSISTANTS:
1. BRADLEY May
2. Enrique Santiago MD
ANESTHESIA: General
ESTIMATED BLOOD LOSS: 75 mL
IVF: 3.3 L crystalloid
URINE OUTPUT: 600 mL
FINDINGS:
1. Severe inflammation and densely adherent distal sigmoid and rectosigmoid to pelvic inlet, extending to below the anterior reflection; small abscess encountered between the proximal rectum and uterus with evacuation of 3-4 mL of pus; extended
Pfannenstiel for hand-port to assist with deep pelvic dissection
2. Duplicated left ureter, normal right ureter
3. Transected rectum at about 8-9 cm from the anal verge and transected the sigmoid immediately proximal to the inflamed mesentery at about mid-sigmoid; performed EEA stapled anastomosis, donuts intact x 2, negative leak test, anastomosis intact on
flexible sigmoidoscopy
SPECIMENS:
1. Rectosigmoid
DRAINS: None
COMPLICATIONS: No immediate complications.
INDICATIONS: The patient is a 67-year-old female with a history of recurrent diverticulitis who presented in August with a recurrent attack with 5 cm abscess that was not amenable to IR drainage. She was treated nonoperatively with bowel rest and
antibiotics, and she improved. Subsequent CT scans showed the abscess was persistent but decreasing in size. She continued to have vague abdominal pains with eating, despite prolonged antibiotics. I performed an attempted colonoscopy 2 days ago,
which showed inflammation starting at about 15 cm from the anal verge, tapering into a stricture at about 18 cm, that I was not able to traverse with the pediatric colonoscope. Therefore, I recommended an operation. The operation was discussed
with the patient in detail, including the risks, benefits and alternatives. Risks described included, but not limited to, bleeding, infection, anastomotic leak, damage to nearby structures (i.e.- ureter, bowel, solid organs), incisional hernia, need
for ostomy creation, conversion to open, inability to remove the strictured segment and anesthetic risks. The patient understood and agreed to proceed.
PROCEDURE IN DETAIL: The patient was taken to the operating room and placed on the operating table in supine position. Sequential compression devices were placed bilaterally. General anesthesia was then induced and the patient was intubated without
complication. The patient was then placed in lithotomy position with both arms tucked. Kimball catheter was placed with sterile technique. The abdomen was then shaved, prepped and draped in a sterile fashion. A time-out was then performed verifying
the correct patient, procedure, operative site, positioning, and special equipment. Anesthesia placed an orogastric tube. Preoperative antibiotics were given. A marking pen was used to fantasma out the midline.
An 8 mm incision at Vazquez's point was made with an 11 blade scalpel. A Veress needle was used to gain abdominal access. After 3 clicks, the insufflation was connected to the Veress needle and the opening pressure was noted to be less than 8 mmHg.
The abdomen was then insufflated to a pressure of 12 mmHg. An 8 mm robotic trocar was then inserted. The robotic camera was advanced and intra-abdominal placement was confirmed. The abdomen was examined. No injuries were noted from port entry or
from the Veress needle. No concerning lesions were noted on the surface of the liver or the peritoneum. No significant omental adhesions were noted in the left lower quadrant. The remaining three 8mm robotic ports were placed under direct
visualization in a diagonal fashion from Vazquez's point to the right lower quadrant, as well as an 8mm assist port in the right lateral mid abdomen, taking care to avoid injury to the right epigastric vessels. The left upper quadrant port was
changed to the air seal port.
A 4 cm Pfannenstiel incision was created 2 fingerbreadths above the pubic symphysis. This was carried down to the anterior fascia with electrocautery and hemostasis was assured. The fascia was then incised to just beyond the length of the skin
incision. The fascia was grasped with Eric's and elevated. The adhesions to the anterior fascia were taken down bluntly from the rectus abdominis muscle and the midline attachment was taken down with electrocautery. This was performed both
superiorly and inferiorly to our incision. The rectus was then split along the midline, first scoring the linea alba with electrocautery, then bluntly spitting with a Yanci clamp to reveal the peritoneum, which was grasped and elevated with Kellys.
The peritoneum was then incised, taking care to avoid injury to intraperitoneal structures. The peritoneum was then incised cranially and caudally to the greatest extent that our incision would allow, taking care to avoid injury to the bladder. A
small Irwin with port cap was placed and a robotic 12 mm port was placed through the port cap. Then, the patient was placed in steep trendelenburg and [id number]. Laparoscopic graspers were used to retract the small bowel out of the pelvis
and retracted the omentum above the transverse colon. The robot was docked from the patient's left side. From the RLQ to Vazquez's point, the instruments introduced were the scissors, camera, bipolar grasper and tip-up grasper, respectively.
Some adhesions were noted from the left pelvic sidewall to the sigmoid colon, which were taken down with electrocautery. There was significant woody inflammation noted in the mesentery of the distal sigmoid and rectosigmoid colon. The strictured
segment of the distal sigmoid extended into the rectosigmoid, which was retracted down into the pelvic inlet due to the inflammation. Therefore, the sigmoid colon was very difficult to grasp and retract. The sigmoid was elevated to evaluate for a
medial to lateral dissection. However, the sigmoid mesentery had been pulled laterally toward the left pelvis, and the usual plane between the retroperitoneum and mesentery was not clear. Therefore, I started with a lateral to medial mobilization.
The adhesions between the sigmoid and the left lower quadrant/left pelvic brim were not as dense and were taken down with electrocautery and blunt dissection. This mobilization was extended to the proximal sigmoid. The distal sigmoid was densely
adherent to the uterus. These adhesions were taken down with a combination of blunt dissection and electrocautery, taking care to avoid injury to the uterus. Once the uterus was further mobilized, the uterus was suspended by advancing a Haseeb
needle with silk suture through the abdominal wall, placing a [id number] through the fundus of the uterus, and advancing the Haseeb needle back through the abdominal wall. The broad ligament of the uterus was significantly edematous
bilaterally, so I felt it less safe to pass the sutures through the broad ligament as I usually do. The uterus was suspended by pulling tension extracorporeally and clamping the suture with a Yanci. I continued to develop the plane around the
rectosigmoid using blunt dissection, as it was circumferentially adherent to the pelvic inlet. Once the distal sigmoid was completely mobilized, I began a medial to lateral dissection. I scored the peritoneum overlying the sacral promontory. The
usual planes were significantly distorted. After some dissection, I was not able to develop an appropriate plane. Therefore, I switched back to a lateral to medial approach. I retracted the sigmoid towards the right upper quadrant and took down
the mesentery from the left pelvic brim and left lower quadrant. I was able to identify the left ureter easily, witnessing vermiculation. The patient had a duplicated left ureter. Both left ureters were kept safe from my dissection. I extended
this plane down distally into the pelvis and proximally up to the distal descending colon, taking care to avoid injury to retroperitoneal structures. I was able to develop the correct mesorectal plane and came back medially to connect this under
the mesocolon. I took this plane up to the PAOLA pedicle, taking care to avoid injury to the hypogastric nerves. I also identified the right ureter by witnessing vermiculation. I kept this safe from my dissection.
I continued my mobilization of the rectosigmoid colon down into the pelvis. The adhesions were extremely dense and the usual planes down the right pelvis and anterior rectum were completely distorted. As I continued down the rectouterine space, I
encountered an abscess cavity with 3-4 mL of pus, which were immediately suctioned. I continued this dissection, alternating from a posterior and lateral approach back to anterior. As the planes were so distorted and the inflammation was so thick,
I was not making much progress. In order to evaluate how far down the pelvis I had dissected, I performed a flexible sigmoidoscopy. I advanced the sigmoidoscope transanally up to the level of the inflammation, which was identified at about 15 cm.
I was not able to pass the scope any further due to stricture. I was unable to identify the tip of the scope intra-abdominally. Therefore, I elected to extend my Pfannenstiel incision in order to place a hand-port and get a better sense of the
strictured segment of the rectosigmoid and if I could develop this plane bluntly with finger fracture. I undocked one of the robotic arms and extended the Pfannenstiel to a total of 6 cm. I lengthened the anterior fascial incision and the midline
incision on the peritoneum, taking care to avoid injury to the bladder. I placed the wound protector and gel point system. I advanced my hand and palpated the sigmoid and rectosigmoid. It was clear that the inflammation and thickening within the
sigmoid colon extended into the proximal rectum, despite the normal appearance of the mucosa on flexible sigmoidoscopy. I broke up some adhesions anteriorly with finger fracture. However, I was unable to safely dissect bluntly down beyond the
thickened rectum. I confirmed the proximal extent of the disease to extend up to the mid sigmoid. I removed my hand and redocked the robot.
At this point, I called my senior production planner, Dr. Santiago, to come evaluate the situation and obtain his opinion on whether further dissection deeper into the pelvis would be safe. Prior to his arrival, I continued by mobilization of the proximal
sigmoid and distal descending colon in anticipation of a low anastomosis. I mobilized the mesocolon from a lateral to medial approach, taking care to avoid injury to the left ureters. At this point, there was plenty of length from my intended
proximal transection point and my anticipated distal transection point. Dr. Santiago arrived and evaluated the extent of inflammation and agreed with continued dissection below the anterior reflection. To assist with mobilization and retraction of
the sigmoid, I dissected around the superior hemorrhoidal circumferentially and divided this with the vessel sealer. No bleeding was noted from the stump. I incised the anterior flexion. Dr. Santiago placed a sizer within the rectum and the uterus
to assist in identifying the correct plane. As I continued this dissection anteriorly, I identified another abscess cavity with fibrinous material and minimal pus. I switched back to a posterior and left sided dissection as these planes were more
normal and safe. I connected these dissection planes to the right and anterior planes. Due to the difficulty retracting the colon, the density of the adhesions and the depth into the pelvis, this was difficult. To assist with retraction and
suction, I had my assistant hvac mechanic place an additional 5mm port in the right upper quadrant. Eventually, I was able to dissect down to rectum that was healthy and would accommodate a stapler. This was confirmed by placing a sizer up the rectum and
palpating the lumen through the hand port. I divided the mesorectum posteriorly with the vessel sealer. I advanced the 45 mm robotic stapler with a green load down the gel point and divided the rectum with 2 loads, taking care to avoid injury to
the surrounding pelvic structures, including the ureters. I then retracted the colon out of the pelvis. I performed a leak test of the rectal stump with the flexible sigmoidoscope, which was negative.
I selected my proximal transection point based on healthy, unthickened colon. I carried my transection point of the superior hemorrhoidal through the mesentery up to my proposed proximal transection point using the vessel sealer. Anesthesia
injected ICG and I confirmed good perfusion to the rectal stump and to my proposed transection point. I extracted the colon through the hand port to prepare the anvil. I transected the colon with electrocautery at my proposed transection point and
passed the specimen off for pathology. I attempted to pass the anvil down the lumen of the colon, but the lumen was narrowed due to a thickened portion of mesentery. I requested a 25 mm EEA stapler, but my maintenance of way clerk informed me that there was
none available. Therefore, I transected the colon about 4 cm more proximal in order to resect the thickened area of mesentery. I created a hole in the mesentery at my new proposed transection point and ligated the mesentery with Kellys,
Metzenbaums and 2-0 Vicryl ties. I divided the colon at this point with electrocautery and passed off this portion of colon to be included with my initial specimen. I passed the 29 mm anvil and this advanced much easier through the lumen. I
created a pursestring around the anvil using 3-0 Prolene in a running [place] fashion. I cleaned up the mesentery and epiploica from the future EEA staple line. I encountered 2 diverticula. I cinched these into the post of the anvil using a 3-0
Vicryl in a pursestring fashion, to ensure a clean staple line proximally. I returned the anvil back to the abdomen, replace the GelPort, insufflated the abdomen and redocked the robot. I checked the reach of the proximal colon and it easily
reached the rectal staple line without tension. Dr. Santiago then passed EEA sizers in progressively increasing size to ensure adequate reach and diameter. I surveyed the operative field prior to the anastomosis and there was no evidence of bleeding.
Dr. Santiago then passed up the EEA stapler transanally and extended the post. The anvil and post were mated. The EEA stapler was closed, held for 1 minute and then fired. The stapler was carefully withdrawn. The donuts were evaluated and were
intact circumferentially. Dr. Santiago then advanced a flexible sigmoidoscope while I occluded the proximal lumen of the colon in order to perform a leak test. No bubbles were identified. On direct evaluation of the anastomosis, there were no
defects and no bleeding. The sigmoidoscope was removed. At this point, I considered performing a diverting loop ileostomy. However, the patient's nutrition was adequate, no hemodynamic instability was noted during the case, the donuts were
intact, and the rectum and proximal colon that were mated were without evidence of significant inflammation. Therefore, I felt it was safe to forego diversion, with which Dr. Santiago agreed.
Using laparoscopic visualization, a TAP block was performed using a total of 30 mL of 0.25% Marcaine with epinephrine mixed with dexamethasone and injecting in the transverse abdominis plane bilaterally. The remaining ports were removed under direct
visualization and no bleeding was noted. The Pfannenstiel incision was closed in layers. First, the peritoneum was closed with a running 0-Vicryl stitch. Then, the anterior fascia was closed using a #1 Stratafix suture. The incisions were
irrigated. The remaining 30 cc of 0.25% Marcaine with epinephrine mixed with dexamethasone were injected around the incisions. The skin was closed with running subcuticular 4-0 Monocryl and dressed with Dermabond.
At this point, the procedure was complete. The patient was awoken and extubated without complication. All needle, sponge and instrument counts were reported as correct. The patient tolerated the procedure well and was transferred to the recovery
room in stable condition with the kimball in place.
Of note, Enrique Santiago MD, assistant hvac mechanic, was necessary during this procedure for traction, countertraction, and exploratory purposes. I was present for the entire duration of the case.
DICTATED BY: Kai Crowell MD
--- NOTE | 2023-11-06 23:00 | PTCARENOTE ---
report received from pacu. kayla allison @[facility]/hr. rehana jasmine yellow. lap sites/transverse site cdi w/ surgical glue present. pt updated on plan of care. call smith in reach. will monitor.
[2023-11-06] MEDS: TYLENOL PO (23:54)
[2023-11-07] MEDS: TORADOL 15 MG IV ×4 (03:26→22:49)
[2023-11-07 03:40] VITALS: BP 143/77
[2023-11-07] MEDS: TYLENOL 1000 MG PO ×4 (05:42→23:00)
[2023-11-07 06:20] LABS: % Basophils 0.1 % (0-2); % Immature Granulocytes 0.6 % (0-0.5); % Lymphocytes 3.4 % (20.5-51.1); % Neutrophils 92.9 % (42.2-75.2); Absolute Immature Granulocytes 0.1 10^3/uL (0-0.05); Absolute Lymphocytes 0.5 10^3/uL (1.2-3.4); Absolute Monocytes 0.4 10^3/uL (0.1-0.6); Absolute Neutrophils 13.8 10^3/uL (1.4-6.5); Hematocrit 29.8 % (37.0-47.0); Hemoglobin 10.1 g/dL (12.0-16.0); Mean Corp Hgb Conc. 33.9 g/dL (33.0-37.0); Mean Corpuscular Hgb 31.5 pg (27.0-31.0); Mean Corpuscular Volume 92.8 fL (81.0-99.0); Mean Platelet Volume 10.2 fL (7.4-10.4); Nucleated Red Blood Cells % 0 %; Platelet Count 289 10^3/uL (130-400); Red Blood Cell Count 3.21 10^6/uL (4.20-5.40); Red Cell Dist. Width 12.5 % (11.5-14.5); White Blood Cell Count 14.9 10^3/uL (4.8-10.8)
[2023-11-07 06:45] LABS: Blood Urea Nitrogen 7 mg/dl (7-17); Calcium 7.7 mg/dl (8.4-10.2); Carbon Dioxide 23 mmol/L (22-30); Chloride 98 mmol/L (98-107); Estimated Creatinine Clearance 82 ml/min; Glucose 169 mg/dl (70-99); Potassium 4.2 mmol/L (3.5-5.1); Sodium 134 mmol/L (135-145); eGFR > 60.00
[2023-11-07 07:20] VITALS: BP 130/73
[2023-11-07] MEDS: ENTEREG 12 MG PO ×2 (09:11→20:30)
[2023-11-07] MEDS: COZAAR 100 MG PO (09:11)
--- NOTE | 2023-11-07 09:20 | W.PN.CRS1 ---
Today's Communication / Plan
-
Clears
Left lower extremity ultrasound
Lovenox
Assessment/Plan
-
POD#1 hand-assisted robotic low anterior resection, lysis of adhesions, flexible sigmoidoscopy, TAP block
-Given left lower extremity pain and slight weakness, will order stat ultrasound of left lower extremity to rule out DVT
-Starting clear liquid diet
-Lovenox added for DVT prophylaxis, teds and SCDs in place
-Continue Invanz for 4 days total postop
-Out of bed with PT after ultrasound is completed
-Continue Roque today, DC in a.m.
-Pain control: Tylenol and Toradol standing, Dilaudid as needed
-OR pathology pending
Subjective Data
Procedure
11/06/2023- hand-assisted robotic low anterior resection, lysis of adhesions, flexible sigmoidoscopy, TAP block
Subjective Data
Date of Service: November 07, 2023
Patient states she has pain in her left lower extremity near her calf. She does not have any numbness or tingling. She states that she feels okay otherwise. She denies nausea or vomiting.
Objective Data
-
Vital Signs
Temp Pulse Resp BP Pulse Ox
97.6 F 72 18 130/73 97
11/07/23 07:20 11/07/23 07:20 11/07/23 07:20 11/07/23 09:11 11/07/23 07:20
Intake & Output
11/06/23 11/07/23 11/08/23
06:59 06:59 06:59
Intake Total 1000 / 1000
Output Total 75 / 75
Balance 925 / 925
Intake:
IV fluids (Total) 1000 / 1000
normosol 100 / 100
Output:
Urine, Roque 75 / 75
Lab Results
11/07/23 05:02
11/07/23 05:02
Physical Exam
-
General: No Acute Distress and AOx3
Abdomen: Soft, Non Distended and Non Tender
Extremities: Calf Tenderness and Other (Mild weakness left lower extremity)
Skin: Warm and Dry
--- NOTE | 2023-11-07 10:21 | CM ---
Reviewed the chart notes and spoke with the patient at the bedside. The patient resides with her spouse in a one story home with one step to enter. The patient reports no DME/VN/SNF in the past. The patient confirmed her pharmacy of choice is the
[facility]. CM continues to be available to patient/family and is monitoring medical plan for needs at discharge.
Plan: Discharge to home when medically stable. No needs anticipated.
[2023-11-07 11:15] VITALS: BP 133/66
[2023-11-07] MEDS: LR 1000 IV ×2 (11:57→22:52)
--- NOTE | 2023-11-07 14:15 | CON.HOSP ---
Addendum entered and electronically signed by Robi Elizondo MD 11/07/23 16:33:
I personally performed a history and physical exam of the patient and discussed management with the resident. I reviewed the resident's note and agree with the documented findings and plan of care HPI/CC.
CVS: S1-S2 normal
Chest: CTA B/L
Abdomen: Soft, NT / Bowel sounds present
Extremities: No edema, normal pulses
[employer]: Non focal exam, No sensory or motor defecits on the legs
# Alcohol use- MSAS , Thiamine replacement
# LE crams- No DVT . Check Mag and B12
# Post op day 1- hand-assisted robotic low anterior resection, lysis of adhesions, flexible sigmoidoscopy, TAP block
Management per Colorectal
Passing flatus
On clears
# DVT Prophylaxis- Lovenox
Original Note:
Documented by User: Merrick Yoon MD, Resident 11/07/23 16:29
Consultation
-
Date/Time Consultation Requested: 11/07/2023
Date/Time Consultation Performed: 11/07/2023
Requesting Provider: Dr. Robi Elizondo
Performing Provider: Dr. Merrick Yoon
Reason for Consultation: Alcohol Use Disorder/Withdrawal
Family Physician
-
Family Physician: Gonzalez Kwon
Chief Complaint
-
Abdominal Pain
History of Present Illness
Sue Matias is a 67 year old female with a recent history of multiple hospitalizations for treatment of C.difficile infection, initially treated with outpatient antibiotics, that persisted for several months, ultimately leading to
diverticulitis with perforation and abscess formation. The perforation and abscess were initially treated with antibiotics in an attempt to avoid surgery, but eventually surgery was requested by the patient. She has a longtime history of alcohol
consumption and we were consulted for observation for DTs and medical management.
She reports drinking '3 rum and cokes per night' since 'forever'. Her last drink was 1-2 weeks ago. She has never been hospitalized for alcohol withdrawal, she has never had withdrawal seizures or hallucinations while withdrawing from alcohol.
Presently she is in pain as she is post op day 1, but has no symptoms of sweats, anxiety, tremors, seizures, or hallucinations. She is lucid, cooperative, responsive and pleasant.
Past Medical History: Hypertension, C. Difficile Colitis, Sepsis, diverticulitis w/ perforation and pericolic abscess
Allergies
Allergy/AdvReac Type Severity Reaction Status Date / Time
cephalexin [From Keflex] Allergy Rash Verified 11/06/23 11:04
clindamycin Allergy C Verified 11/06/23 21:34
difficile
diarrhea
venom-honey bee Allergy Swelling Verified 11/06/23 11:04
[bee venom (honey bee)]
Home Medications
losartan 100 mg tablet 100 mg PO DAILY Blood Pressure 07/12/20
ibuprofen 200 mg capsule 400 mg PO Q6HPRN PRN mild pain 09/16/23
lactobacillus comb no.10 20 billion cell capsule (Probiotic) 25,000 mmu cells PO DAILY@1030 Supplement 09/16/23
amoxicillin 875 mg-potassium clavulanate 125 mg tablet 1 tab PO Q12 #56 tabs 09/18/23
ciprofloxacin HCl 500 mg tablet 500 mg PO BID #56 tabs 09/18/23
vancomycin 125 mg capsule 125 mg PO BID #56 caps 09/18/23
sodium sul 1.479 gram-potas ch 0.188 gram-magnes sul 0.225 gram tablet (Sutab) 24 tab PO PER PKG DIR bowel prep 10/30/23
metronidazole 500 mg tablet 500 mg PO . bowel prep 11/06/23
neomycin 500 mg PO . bowel prep 11/06/23
Family History: non-contributory
Surgical History: BL Tubal Ligation, s/p robotic sigmoidectomy
Social History: Lives at home with four children and . Rest as above.
Medical History
Past Medical History
Past Medical History: Reports HTN and Other (C. Diff colitis, diverticulitis w/ perforation & abscess)
Past Surgical History: Reports Bowel Resection (Post op day 1 sigmoidectomy ) and Gynocological (BL Tubal Ligation)
Social History
Tobacco: Non-smoker
Alcohol: Chronic Alcoholic (3 rum & coke/night for many years.)
Drug: None
Personal:
Living: With Family
Allergies / Home Medications
Allergies reflects when Allergies were last updated in [place].
Home Medications with original date entered in [place]
Allergy/Medication List:
as above
Review of Systems
-
History Source: Patient
A 12 point Review of Systems was completed except as noted: Yes
Constitutional: Reports No Symptoms
EENT: Reports No Symptoms
Respiratory: Reports No Symptoms
Cardiac: Reports No Symptoms
Abdomen/GI: Reports Abdominal Pain and Constipated; Denies Nausea or Vomiting
: Reports No Symptoms
Musculoskeletal: Reports No Symptoms
Skin: Reports No Symptoms
Neurological: Reports No Symptoms
Endocrine: Reports No Symptoms
Hematologic/Lymphatic: Reports No Symptoms
Psych: Reports No Symptoms
Physical Exam
Vital Signs
Vital Signs
Temp Pulse Resp BP Pulse Ox
98.1 F 69 18 133/66 98
11/07/23 11:15 11/07/23 11:15 11/07/23 11:15 11/07/23 11:15 11/07/23 11:15
Physical Exam
General: Well Developed, Well Nourished and Pain
HEENT: Normocephalic, Anicteric, Moist Mucous Membranes and PERRLA
Respiratory: Clear
Cardiac: S1/S2 and Regular Rhythm
Breast: Deferred by me
GI: Soft, Normal Bowel Sounds, Tender and Distended
Musculoskeletal: No Clubbing, No Cyanosis and No Edema
Neuro: Awake, Alert, Oriented and Nonfocal/Grossly Intact; Negative Tremors
Psych: Calm
Laboratory Results
-
Laboratory Results
11/07/23 05:02
11/07/23 05:02
PT 14.6 Sec (11.4-14.6) 11/03/23 07:40
INR 1.15 11/03/23 07:40
APTT 36.4 Sec (23.4-35.0) H 11/03/23 07:40
Total Bilirubin 0.6 mg/dl (0.2-1.3) 11/03/23 07:40
AST 16 U/L (14-36) 11/03/23 07:40
ALT < 10 U/L (0-35) 11/03/23 07:40
Alkaline Phosphatase 72 U/L (38-126) 11/03/23 07:40
Impression / Plan
-
67 year old Female with a PMHx of Hypertension, chronic alcohol use, recent C. Diff colitis with failure of outpatient antibiotic treatment and resultant diverticulitis with perforation/pericolic abscess requiring Sigmoidectomy.
##Chronic Alcohol Use
- Not in acute withdrawal; vital signs stable, mood stable, no palpitations, diaphoresis, anxiety or tremors. No seizures or seizure-like activity. No Hallucinations.
- Started on MSAS protocol
- Given IV Thiamine/Folic Acid
- B12 level
#Hyperglycemia
- likely a consequence of stress/surgery
- no history of Diabetes Mellitus
- will continue to monitor
#Lower extremity cramping
- will check magnesium level and replete as needed
#Hypocalcemia
- Calcium 7.7. Prior values were wnl
- Ordered PTH, Vitamin D levels, ionized Ca
- May be a consequence of chronic bowel pathology leading to decreased absorption vs. vitamin D deficiency vs. hypoparathyroidism
#C.Diff Colitis
#Sigmoid Diverticulitis w/ perforation & pericolic abscess
- s/p sigmoidectomy
- pain management and abx per surgery
Diet: Patient is on clear liquid per Colorectal
DVT Ppx: Lovenox
Code: Full Code

Documented by User: Robi Elizondo MD 11/07/23 16:31
Impression / Plan
-
67 year old Female with a PMHx of Hypertension, chronic alcohol use, recent C. Diff colitis with failure of outpatient antibiotic treatment and resultant diverticulitis with perforation/pericolic abscess requiring Sigmoidectomy.
#Chronic Alcohol Use
- Not in acute withdrawal; vital signs stable, mood stable, no palpitations, diaphoresis, anxiety or tremors. No seizures or seizure-like activity. No Hallucinations.
- Started on MSAS protocol
- Given IV Thiamine/Folic Acid
- B12 level
#Hyperglycemia
- likely a consequence of stress/surgery
- no history of Diabetes Mellitus
- will continue to monitor
#Lower extremity cramping
- will check magnesium level and replete as needed
-Also differential includes alcohol neuropathy
#Hypocalcemia
- Calcium 7.7. Prior values were wnl
- Ordered PTH, Vitamin D levels, ionized Ca
- May be a consequence of chronic bowel pathology leading to decreased absorption vs. vitamin D deficiency vs. hypoparathyroidism
#H/O C.Diff Colitis
#Sigmoid Diverticulitis w/ perforation & pericolic abscess
- s/p sigmoidectomy
- pain management and abx per surgery
Diet: Patient is on clear liquid per Colorectal
DVT Ppx: Lovenox
Code: Full Code
D/W Colorectal
[2023-11-07 15:25] VITALS: BP 127/72
[2023-11-07 16:26] LABS: Magnesium 2.5 mg/dl (1.6-2.3)
[2023-11-07] MEDS: FOLVITE 0.4 MG PO (16:50)
[2023-11-07] MEDS: LOVENOX 40 MG SC (16:51)
[2023-11-07 16:57] LABS: Vitamin D, 25-OH*** 48.7 ng/mL (30-80)
[2023-11-07 18:20] LABS: Ionized Calcium 1.05 mMOL/L (1.15-1.33)
--- NOTE | 2023-11-07 18:41 | PTCARENOTE ---
pt states she drinks 1.5oz Rum in about 480mls x3 each night b/t 7-11pm. No DT's noted pt had some anxiety over a blood draw and does have some paranoia.
[2023-11-07 18:55] LABS: Vitamin B12 283 pg/ml (239-931)
[2023-11-07 19:14] VITALS: BP 139/70
[2023-11-07] MEDS: THIAMINE INJECTION 100 MG IV (20:30)
[2023-11-07] MEDS: INVANZ 60 MG IV (22:49)
[2023-11-07 23:27] VITALS: BP 132/69
--- NOTE | 2023-11-07 23:55 | PTCARENOTE ---
Patient c/o 'pins and needles on both her feet'. Neuro vascular check WNL. stable vitals.Took off the TEDS as per request. Very anxious/ paranoid saying that 'someone she knows lost her leg at this hospital'. MOLLY Sampson made aware. No new
orders at this time
[2023-11-08 03:11] VITALS: BP 132/68
[2023-11-08] MEDS: TORADOL 15 MG IV ×4 (04:15→22:10)
[2023-11-08] MEDS: TYLENOL 1000 MG PO ×4 (05:01→23:22)
[2023-11-08 06:00] VITALS: BMI 26.3
[2023-11-08 06:39] LABS: % Basophils 0.3 % (0-2); % Eosinophils 0.6 % (0-6); % Immature Granulocytes 0.3 % (0-0.5); % Lymphocytes 13.3 % (20.5-51.1); % Monocytes 6.1 % (1.7-9.3); % Neutrophils 79.4 % (42.2-75.2); Absolute Eosinophils 0.1 10^3/uL (0-0.7); Absolute Lymphocytes 1.3 10^3/uL (1.2-3.4); Absolute Monocytes 0.6 10^3/uL (0.1-0.6); Absolute Neutrophils 7.6 10^3/uL (1.4-6.5); Hematocrit 27.6 % (37.0-47.0); Hemoglobin 9.2 g/dL (12.0-16.0); Mean Corp Hgb Conc. 33.3 g/dL (33.0-37.0); Mean Corpuscular Hgb 31.7 pg (27.0-31.0); Mean Corpuscular Volume 95.2 fL (81.0-99.0); Nucleated Red Blood Cells % 0 %; Platelet Count 272 10^3/uL (130-400); Red Cell Dist. Width 12.9 % (11.5-14.5); White Blood Cell Count 9.6 10^3/uL (4.8-10.8)
[2023-11-08 06:58] LABS: Blood Urea Nitrogen 4 mg/dl (7-17); Calcium 8.1 mg/dl (8.4-10.2); Carbon Dioxide 29 mmol/L (22-30); Chloride 100 mmol/L (98-107); Estimated Creatinine Clearance 82 ml/min; Glucose 95 mg/dl (70-99); Potassium 3.4 mmol/L (3.5-5.1); Sodium 136 mmol/L (135-145); eGFR > 60.00
[2023-11-08 07:00] VITALS: BP 139/69
[2023-11-08] MEDS: FOLVITE 0.4 MG PO (09:50)
[2023-11-08] MEDS: KCL 40 MEQ PO (09:50)
[2023-11-08] MEDS: COZAAR 100 MG PO (09:51)
[2023-11-08] MEDS: THIAMINE INJECTION 100 MG IV ×2 (09:51→20:29)
[2023-11-08] MEDS: VITAMIN B-12 1000 MCG PO (09:51)
[2023-11-08] MEDS: ENTEREG PO (10:01)
--- NOTE | 2023-11-08 10:44 | W.PN.GS2 ---
Addendum entered and electronically signed by Deep Rosario MD 11/08/23 14:23:
Patient seen and examined. Agree with assessment plan as documented below.
No major complaints. Pain well-controlled. Denies nausea or vomiting. Passing flatus and loose stools. Voiding. Ambulating. Soreness improved, denies any neurovascular symptoms or weakness, no gait instability Reports wanting to lay and
Lovenox discontinued.
Gen: NAD
Abd: soft, NT/ND, non-peritoneal, incisions c/d/i - no erythema, ecchymosis or drainage
Patient is a 67 yo F with h/o chronic diverticulitis now POD #2 Hand assisted robotic low anterior resection with flex sig
AFVSS
Acute anemia present likely secondary to hemodilution/expected losses
Venous duplex negative for VTE. Calf discomfort resolving, suspect secondary to positioning in stirrups in OR
Tolerating clears with +BM/Flatus.
Voidng since kimball removed
H/O daily ETOH: appreciate medicine following with us
--Advance to LRD
--D/C IVF
--C/W Invanz x4 doses
--OOB/Ambulate
--Trend labs
--H/H later today
--Lovenox discontinued at patient request, discussed elevated risk of DVT/PE and she is accepting of this. SCD's while in bed as tolerated.
--Entereg held at patient's request. Has been passing stools.
--OK to d/c telemetry
--Medical management as per primary team
Original Note:
Today's Communication / Plan
-
Trend labs
Advance diet
Assessment / Plan
-
67 yo female with h/o chronic diverticulitis now POD #2 Hand assisted robotic low anterior resection with flex sig
AFVSS
Acute anemia present likely secondary to hemodilution/expected losses
Venous duplex negative for VTE. Calf discomfort resolving, suspect secondary to positioning in stirrups in OR
Tolerating clears with +BM/Flatus. voidng since kimball removed
H/O daily ETOH: appreciate medicine following with us
--Advance to LRD
--D/C IVF
--C/W Invanz x4 doses
--OOB/Ambulate
--Trend labs
--H/H later today
--Lovenox discontinued at patient request, discussed elevated risk of DVT and she is accepting of this. SCD's while in bed as tolerated.
--Entereg held at patient's request. Has been passing stools.
--Ok to d/c telemetry
--Medical management as per primary team
Subjective Data
-
Date of Service: November 08, 2023
Patient seen and examined at bedside with Dr. Rosario. Denies n/v. Passing flatus and some loose stools. Kimball out and patient voiding.
Notes her calf soreness is much improved, denies motor changes or loss of sensation.
Wants tele pack off and notes she will be declining any further lovenox injections as she is sore at injection site and would like entereg discontinued.
Objective Data
-
Intake and Output
11/07/23 11/08/23 11/09/23
06:59 06:59 06:59
Intake Total 1000 / 1000 2910 / 2910
Output Total 75 / 75 2600 / 2600
Balance 925 / 925 310 / 310
Intake:
Oral fluids 1200 / 1200
IV fluids (Total) 1000 / 1000 1650 / 1650
normosol 100 / 100
IV piggybacks 60 / 60
Output:
Urine, Kimball 75 / 75 800 / 800
Urine, Voided 1800 / 1800
Other:
Number of unmeasured liquid
stools
Rectum 1
Vital Signs
Temp Pulse Resp BP Pulse Ox
98.0 F 66 18 139/69 98
11/08/23 07:00 11/08/23 07:00 11/08/23 07:00 11/08/23 07:00 11/08/23 07:00
Lab Results
11/08/23 06:15
Calcium 8.1 mg/dl (8.4-10.2) L 11/08/23 06:15
Magnesium 2.5 mg/dl (1.6-2.3) H 11/07/23 05:02
Total Bilirubin 0.6 mg/dl (0.2-1.3) 11/03/23 07:40
AST 16 U/L (14-36) 11/03/23 07:40
ALT < 10 U/L (0-35) 11/03/23 07:40
Alkaline Phosphatase 72 U/L (38-126) 11/03/23 07:40
Total Protein 7.2 g/dl (6.3-8.2) 11/03/23 07:40
Albumin 4.2 g/dl (3.5-5.0) 11/03/23 07:40
Physical Exam
-
Restless but in NAD
BLLE equal in strength/sensation. No edema present. Pulses strong
ABD soft, ND, minimal incisional tenderness
[2023-11-08 13:16] LABS: Hematocrit 27.9 % (37.0-47.0); Hemoglobin 9.4 g/dL (12.0-16.0)
--- NOTE | 2023-11-08 13:49 | PTCARENOTE ---
pt having some bloody stool today, trending Hg 9.4 (9.2). pt is very concerned. nurse explained reasons for bleed, but hemodynamically at time is stable. Both hospitalist and sx team aware of bleeding and will monitor her. pt eating low residue and
OOB walking hallways
--- NOTE | 2023-11-08 14:15 | W.PN.UPDATE ---
Update Note
Progress Note Update
I saw and evaluated the patient. I reviewed the resident�s note and agree with findings and plan as documented in the resident�s note.
Patient had some blood in stool in the morning and was concerned about it,
Denies of having any nausea/vomiting
1. s/p Hand assisted robotic Low anterior resection/Lysis of adhesion
h/o recurrent sigmoid diverticulitis
h/o royal-colonic abscess
-patient was managed medically initially with antibiotics for diverticulitis/abscess. Abscess was not amenable to drainage by IRAD
-Repeat CT abdominal imaging showing some improvement although not complete resolution of abscess
-Patient was brought in electively for a low anterior resection by colorectal surgery
-Postoperatively patient has been doing good and has been started on low residue diet
-Some reported blood in stool today in the morning although hemoglobin remains stable
-Surgery managing postoperative care
2. History of alcohol use
-Last drink approximately 1 week back, low risk for withdrawal
-monitor on MSAS
3. Hypocalcemia
-asymptomatic, Vit D 25 OH 48 - Normal
-Low ionized benjamin noted, if becomes symptomatic will treat with IV/Oral calcium
4. Acute blood loss anemia
-Post op change. transfuse if Hbg < 7
5. History of C. difficile colitis
-Patient had episode of cdiff colitis on 08/06
-Provide oral vancomycin 125mg BID with 7 days after taken off abx.
Essential HTN
h/o R THR
h/o Vit D deficiency
DVT PPX - scd
Full code
--- NOTE | 2023-11-08 14:33 | W.PN.HOSP.TC ---
Addendum entered and electronically signed by Montez Lewis MD 11/08/23 14:45:
I saw and evaluated the patient. I reviewed the resident�s note and agree with findings and plan as documented in the resident�s note.
Original Note:
Today's Communication/Plan
-
C/w MSAS protocol.
Assessment / Plan
Assessment / Plan
67 year old Female with a PMHx of Hypertension, chronic alcohol use, recent C. Diff colitis with failure of outpatient antibiotic treatment and resultant diverticulitis with perforation/pericolic abscess requiring Sigmoidectomy.
##Chronic Alcohol Use
- Not in acute withdrawal; vital signs stable, mood stable, no palpitations, diaphoresis, anxiety or tremors. No seizures or seizure-like activity. No Hallucinations.
- MSAS scores have been <1
- s/p IV Thiamine/Folic Acid. B12 wnl.
- continue to monitor
#Hx of C.Diff Colitis
#Sigmoid Diverticulitis w/ perforation & pericolic abscess - s/p sigmoidectomy
- pain management and abx per surgery
- Passing stool with minimal blood, able to tolerate low residue diet.
- surgery will manage
#Hypocalcemia, asymptomatic
- Calcium & Ionized Calcium low, but stable
- Not an acute concern at this time. Will continue to monitor and investigate further if symptoms develop.
#Hyperglycemia (resolved) - no history of Diabetes Mellitus.Likely a consequence of stress/surgery
#Lower extremity cramping (resolved) - Patient states the pain was related to SCD placement and resolved with removal of SCDs
Diet: Patient is on clear liquid per Colorectal
DVT Ppx: Lovenox
Code: Full Code
Anticipated Discharge: 24 - 48 hours
Subjective/Interval History
-
Patient stable this morning without any acute complaints. She is not diaphoretic, she has no tremors, palpitations, agitation, hallucinations or seizures. She passed blood in her stool which she discussed with surgical team and she has mild pain at
the incision site on her abdomen which is being well managed with current analgesics.
Objective Data
-
Labs:
Laboratory Results
11/08/23 11/08/23
06:15 12:42
WBC 9.6
Hgb 9.2 L 9.4 L
Hct 27.6 L 27.9 L
Plt Count 272
Sodium 136
Potassium 3.4 L
Chloride 100
Carbon Dioxide 29
BUN 4 L
Creatinine 0.6
Glucose 95
Calcium 8.1 L
Vital Signs:
Vital Signs
Temp Pulse Resp BP Pulse Ox
98.0 F 66 18 139/69 98
11/08/23 07:00 11/08/23 07:00 11/08/23 07:00 11/08/23 07:00 11/08/23 07:00
I&O
11/07/23 11/08/23 11/09/23
06:59 06:59 06:59
Intake Total 1000 / 1000 2910 / 2910 450 / 450
Output Total 75 / 75 2600 / 2600
Balance 925 / 925 310 / 310 450 / 450
Review of Systems
-
History Source: Patient
All other systems: Reviewed and negative
Abdomen/GI: Reports Abdominal Pain and Bloody Stools
Physical Exam
-
General: Well Developed, Well Nourished, No Apparent Distress and Comfortable
HEENT: Normocephalic, Atraumatic, Moist Mucous Membranes, Anicteric, [place] Conjunctivae and PERRLA
Respiratory: Clear to Auscultation
Cardiac: Regular Rhythm and S1/S2
Breast: N/A
GI: Soft, Normal Bowel Sounds, Tender, Distended and Other (Multiple closed incisions w/o surrounding erythema, discharge or induration. ); Negative No Hernias
Rectal: Deferred by Provider
Genito-urinary: Deferred by me
Musculoskeletal: No Clubbing, No Cyanosis and No Edema
Neuro: Awake, Alert and Oriented; Negative Tremors or Slurred Speech
Psych: Calm
[2023-11-08 15:00] VITALS: BP 131/63
[2023-11-08] MEDS: FIRVANQ 125 MG PO ×2 (16:40→20:30)
[2023-11-08] MEDS: INVANZ IV (22:10)
[2023-11-08] MEDS: INVANZ 60 MG IV (22:45)
[2023-11-09 00:08] VITALS: BP 156/85
[2023-11-09] MEDS: TORADOL 15 MG IV ×4 (05:12→22:23)
[2023-11-09] MEDS: TYLENOL 1000 MG PO ×4 (05:16→23:06)
[2023-11-09 05:19] VITALS: BMI 26.2
[2023-11-09 07:34] LABS: Hematocrit 27.3 % (37.0-47.0); Hemoglobin 8.9 g/dL (12.0-16.0); Mean Corp Hgb Conc. 32.6 g/dL (33.0-37.0); Mean Corpuscular Hgb 30.5 pg (27.0-31.0); Mean Corpuscular Volume 93.5 fL (81.0-99.0); Mean Platelet Volume 10.4 fL (7.4-10.4); Platelet Count 271 10^3/uL (130-400); Red Blood Cell Count 2.92 10^6/uL (4.20-5.40); Red Cell Dist. Width 13.2 % (11.5-14.5); White Blood Cell Count 8.2 10^3/uL (4.8-10.8)
--- NOTE | 2023-11-09 07:37 | W.PN.HOSP.TC ---
Addendum entered and electronically signed by Montez Lewis MD 11/09/23 12:40:
I saw and evaluated the patient. I reviewed the resident�s note and agree with findings and plan as documented in the resident�s note.
Recent blood stool. No excessive amount
Hbg remains stable
1. s/p Hand assisted robotic Low anterior resection/Lysis of adhesion
h/o recurrent sigmoid diverticulitis
h/o royal-colonic abscess
-patient was managed medically initially with antibiotics for diverticulitis/abscess. Abscess was not amenable to drainage by IRAD.
-Repeat CT abdominal imaging showing some improvement although not complete resolution of abscess
-Patient was brought in electively for a low anterior resection by colorectal surgery
-Postoperatively patient has been doing good and has been started on low residue diet
-Patient have some blood in stool, hemoglobin remains relatively stable close to 9. Continue monitoring
2. History of alcohol use
-Last drink approximately 1 week back, low risk for withdrawal
-Discontinue further MSAS scoring
3. Hypocalcemia -resolved
-asymptomatic, Vit D 25 OH 48 - Normal
-Low ionized benjamin noted, if becomes symptomatic will treat with IV/Oral calcium
4. Acute blood loss anemia
-Post op change. transfuse if Hbg < 7
5. History of C. difficile colitis
-Patient had episode of cdiff colitis on 08/06
-Provide oral vancomycin 125mg BID with 7 days after taken off abx.
Essential HTN
h/o R THR
h/o Vit D deficiency
DVT PPX - scd
Full code
Original Note:
Today's Communication/Plan
-
C/w IV Abx. Diet advancement per surgery.
Assessment / Plan
Assessment / Plan
67 year old Female with a PMHx of Hypertension, chronic alcohol use, recent C. Diff colitis with failure of outpatient antibiotic treatment and resultant diverticulitis with perforation/pericolic abscess requiring Sigmoidectomy.
##Chronic Alcohol Use
- Not in acute withdrawal; vital signs stable, mood stable, no palpitations, diaphoresis, anxiety or tremors. No seizures or seizure-like activity. No Hallucinations.
- MSAS scores have been <1 during this admission; [place] MSAS protocol
- s/p IV Thiamine/Folic Acid. B12 wnl.
- continue to monitor
#Hx of C.Diff Colitis
#Sigmoid Diverticulitis w/ perforation & pericolic abscess - s/p sigmoidectomy
- pain management and IV Ertapenem
- Passing stool with minimal blood, able to tolerate low residue diet. OOB walking hallways
- Will add PO Vancomycin 125 BID for C. Diff ppx while on IV abx and then for 7 days after stopping
#Chronic Anemia
#Post surgical blood loss s/p sigmoidectomy w/ anastomosis
- Hgb 10.1 on admission - 8.9 post surgical, HD stable. Blood loss clinically expected for post-surgical course.
- Transfuse if hgb <7
#Hypocalcemia, asymptomatic
- Calcium & Ionized Calcium low, but stable
- Not an acute concern at this time. Will continue to monitor and investigate further if symptoms develop.
#Hyperglycemia (resolved) - no history of Diabetes Mellitus. Likely a consequence of stress/surgery
#Lower extremity cramping (resolved) - Patient states the pain was related to SCD placement and resolved with removal of SCDs
Diet: Patient is on clear liquid per Colorectal
DVT Ppx: Lovenox
Code: Full Code
Anticipated Discharge: 24 - 48 hours
Subjective/Interval History
-
Seen in the AM. NO acute events overnight. She has been tolerating a low residue diet, is passing gas and having bowel movements with minimal blood. She is able to tolerate OOB movement without issue. There are no tremors, no diaphoresis, agitation,
hallucinations or seizures.
Objective Data
-
Labs:
Laboratory Results
11/09/23
06:02
WBC 8.2
Hgb 8.9 L
Hct 27.3 L
Plt Count 271
Sodium Pending
Potassium Pending
Chloride Pending
Carbon Dioxide Pending
BUN Pending
Creatinine Pending
Glucose Pending
Calcium Pending
Vital Signs:
Vital Signs
Temp Pulse Resp BP Pulse Ox
97.8 F 71 16 156/85 97
11/09/23 00:08 11/09/23 00:08 11/09/23 00:08 11/09/23 00:08 11/09/23 00:08
I&O
11/08/23 11/09/23 11/10/23
06:59 06:59 06:59
Intake Total 2910 / 2910 2059 / 2059
Output Total 2600 / 2600 200 / 200
Balance 310 / 310 0 / 1860
Review of Systems
-
History Source: Patient
All other systems: Reviewed and negative
Abdomen/GI: Reports Bloody Stools
Physical Exam
-
General: Well Developed, Well Nourished, No Apparent Distress and Comfortable
HEENT: Normocephalic, Atraumatic, Moist Mucous Membranes, Anicteric, [place] Conjunctivae and PERRLA
Respiratory: Clear to Auscultation
Cardiac: Regular Rhythm and S1/S2
Breast: Deferred by me
GI: Soft, Nondistended, Normal Bowel Sounds and Tender (At incision site)
Rectal: Deferred by Provider
Genito-urinary: Deferred by me
Musculoskeletal: No Clubbing, No Cyanosis and No Edema
Skin: Other (Well appearing laparoscopic port site closures w/o discharge, erythema, induration or fluctuance.)
Neuro: Awake, Alert and Oriented
Psych: Calm
[2023-11-09 07:56] LABS: Blood Urea Nitrogen 5 mg/dl (7-17); Calcium 8.5 mg/dl (8.4-10.2); Carbon Dioxide 26 mmol/L (22-30); Chloride 105 mmol/L (98-107); Estimated Creatinine Clearance 82 ml/min; Glucose 90 mg/dl (70-99); Magnesium 1.8 mg/dl (1.6-2.3); Potassium 3.9 mmol/L (3.5-5.1); Sodium 137 mmol/L (135-145); eGFR > 60.00
--- NOTE | 2023-11-09 08:42 | W.PN.GS2 ---
Today's Communication / Plan
-
--No major changes, monitor for today and completion of abx
--Tentative plan for DC tomorrow
Assessment / Plan
-
67 yo female with h/o chronic diverticulitis now POD #3 Hand assisted robotic low anterior resection with flex sig
AFVSS
Acute anemia present likely secondary to hemodilution/expected losses, stable
Venous duplex negative for VTE. Calf discomfort resolving, suspect secondary to positioning in stirrups in OR
Tolerating clears with +BM/Flatus. Voidng since Roque removed
H/O daily ETOH: appreciate medicine following with us
--LRD
--Pain control: Tylenol, Toradol
--D/C IVF
--C/W Invanz x4 doses, on Vanco for coverage given h/o C.diff
--OOB/Ambulate
--Lovenox discontinued at patient request, discussed elevated risk of DVT and she is accepting of this. SCD's while in bed as tolerated.
--Entereg held at patient's request. Has been passing stools.
--OK to d/c telemetry
--Medical management as per primary team
Subjective Data
-
Date of Service: November 09, 2023
No complaints. Pain well-controlled. No nausea or vomiting. Passing flatus and more formed BMs. Afebrile. Voiding. Ambulating. Reports that calf and heel soreness has significantly improved and almost resolved.
Objective Data
-
Intake and Output
11/08/23 11/09/23 11/10/23
06:59 06:59 06:59
Intake Total 2910 / 2910 2059 / 2059
Output Total 2600 / 2600 200 / 200
Balance 310 / 310 1860 / 1860
Intake:
Oral fluids 1200 / 1200 960 / 960
IV fluids (Total) 1650 / 1650 1100 / 1100
IV piggybacks 60 / 60
Output:
Urine, Roque 800 / 800
Urine, Voided 1800 / 1800 200 / 200
Other:
Number of approximated MODERATE 3
amounts of urine
Number of unmeasured liquid
stools
Rectum 1
Vital Signs
Temp Pulse Resp BP Pulse Ox
97.8 F 71 16 156/85 97
11/09/23 00:08 11/09/23 00:08 11/09/23 00:08 11/09/23 00:08 11/09/23 00:08
Lab Results
11/09/23 06:02
11/09/23 06:02
Calcium 8.5 mg/dl (8.4-10.2) 11/09/23 06:02
Magnesium 1.8 mg/dl (1.6-2.3) 11/09/23 06:02
Total Bilirubin 0.6 mg/dl (0.2-1.3) 11/03/23 07:40
AST 16 U/L (14-36) 11/03/23 07:40
ALT < 10 U/L (0-35) 11/03/23 07:40
Alkaline Phosphatase 72 U/L (38-126) 11/03/23 07:40
Total Protein 7.2 g/dl (6.3-8.2) 11/03/23 07:40
Albumin 4.2 g/dl (3.5-5.0) 11/03/23 07:40
Physical Exam
-
Gen: NAD
Abd: soft, NT, mild distension, non-peritoneal, incisions c/d/i - no erythema, ecchymosis or drainage
[2023-11-09 09:00] VITALS: BP 142/78
[2023-11-09] MEDS: VITAMIN B-12 1000 MCG PO (09:06)
[2023-11-09] MEDS: FIRVANQ 125 MG PO ×2 (09:06→20:08)
[2023-11-09] MEDS: COZAAR 100 MG PO (09:08)
[2023-11-09] MEDS: FOLVITE 0.4 MG PO (09:08)
[2023-11-09] MEDS: THIAMINE INJECTION 100 MG IV ×2 (09:09→19:30)
[2023-11-09 09:11] LABS: Intact PTH 77.3 pg/ml (13.6-85.8)
[2023-11-09 15:00] VITALS: BP 163/86
--- NOTE | 2023-11-09 15:55 | PTCARENOTE ---
pt up walking hallways, eating 70%+ of meals, pain controlled with APAP/Toradol, having small soft form Bm that are blood tinged but looking less. pt insisting she will need to be here until Friday for quiet.
[2023-11-09 17:31] VITALS: BP 169/88
--- NOTE | 2023-11-09 18:46 | PTCARENOTE ---
Addendum entered by Nohemy Fleming RN 11/09/23 19:06:
Can offer Ativan also, in case BP is elevated r/t ETOH withdrawal.
Original Note:
Notified Dr. Lewis pt's BP were creeping up today. doc ordered hydralazine. pt refused IV hydralazine for a BP 169/88, d/t SE she read on-line.
[2023-11-09] MEDS: APRESOLINE 10 MG IV (19:26)
[2023-11-09] MEDS: INVANZ 60 MG IV (22:23)
[2023-11-09 22:34] VITALS: BP 153/75
[2023-11-10] MEDS: TORADOL 15 MG IV ×2 (05:04→11:13)
[2023-11-10] MEDS: TYLENOL 1000 MG PO (05:05)
[2023-11-10 05:16] VITALS: BMI 26.2
[2023-11-10 06:53] LABS: Hemoglobin 9.3 g/dL (12.0-16.0); Mean Corp Hgb Conc. 33.2 g/dL (33.0-37.0); Mean Corpuscular Hgb 31.5 pg (27.0-31.0); Mean Corpuscular Volume 94.9 fL (81.0-99.0); Mean Platelet Volume 10.7 fL (7.4-10.4); Platelet Count 283 10^3/uL (130-400); Red Blood Cell Count 2.95 10^6/uL (4.20-5.40); Red Cell Dist. Width 13.2 % (11.5-14.5)
[2023-11-10 07:28] LABS: Blood Urea Nitrogen 6 mg/dl (7-17); Calcium 8.6 mg/dl (8.4-10.2); Carbon Dioxide 27 mmol/L (22-30); Chloride 103 mmol/L (98-107); Estimated Creatinine Clearance 82 ml/min; Glucose 92 mg/dl (70-99); Sodium 139 mmol/L (135-145); eGFR > 60.00
[2023-11-10 07:45] VITALS: BP 153/88
[2023-11-10] MEDS: THIAMINE INJECTION 100 MG IV (07:53)
[2023-11-10] MEDS: COZAAR 100 MG PO (07:53)
[2023-11-10] MEDS: FIRVANQ 125 MG PO (07:53)
[2023-11-10] MEDS: VITAMIN B-12 1000 MCG PO (07:53)
[2023-11-10] MEDS: FOLVITE 0.4 MG PO (07:53)
--- NOTE | 2023-11-10 09:52 | W.PN.CRS1 ---
Today's Communication / Plan
-
discharge
Assessment/Plan
-
67 yo female with h/o chronic diverticulitis now POD #4 Hand assisted robotic low anterior resection with flex sig
AFVSS
--LRD
--Pain control: Tylenol, Toradol
--C/W Invanz x4 doses, on Vanco for coverage given h/o C.diff
--OOB/Ambulate
--Lovenox discontinued at patient request, discussed elevated risk of DVT and she is accepting of this. SCD's while in bed as tolerated.
--Medical management as per primary team
--Okay for discharge today. All discharge instructions discussed with the patient. She will use Tylenol for pain. Follow-up in the office in [address] Crowell.
Subjective Data
Procedure
11/06/2023- hand-assisted robotic low anterior resection, lysis of adhesions, flexible sigmoidoscopy, TAP block
Subjective Data
Date of Service: November 10, 2023
Patient states she is feeling well. She had bowel movements last night and this morning. Her pain is controlled. She is tolerated diet. She has no complaints.
Objective Data
-
Vital Signs
Temp Pulse Resp BP Pulse Ox
98.5 F 77 14 153/88 96
11/10/23 07:45 11/10/23 07:45 11/10/23 07:45 11/10/23 07:45 11/10/23 07:45
Intake & Output
11/09/23 11/10/23 11/11/23
06:59 06:59 06:59
Intake Total 2059 / 2059 1440 / 1440
Output Total 200 / 200
Balance 1860 / 1860 1440 / 1440
Intake:
Oral fluids 960 / 960 1380 / 1380
IV fluids (Total) 1100 / 1100
IV piggybacks 60 / 60
Output:
Urine, Voided 200 / 200
Other:
Number of approximated SMALL 1
amounts of urine
Number of approximated MODERATE 3 2
amounts of urine
Number of approximated LARGE 1
amounts of urine
Lab Results
11/10/23 04:50
11/10/23 04:50
Physical Exam
-
General: No Acute Distress and AOx3
Abdomen: Soft, Non Distended and Non Tender
Skin: Warm and Dry
Incision: Clear, Dry, Intact
--- NOTE | 2023-11-10 10:24 | W.DCSUMMARY ---
Discharge Summary
Discharge Data
Date of Admission: 11/06/23
Date of Discharge: 11/10/23
-
Pending Results: Yes
Additional Pending Results:
pathology
Hospital Course
67-year-old female presented for an elective hand-assisted robotic low anterior resection due to chronic diverticulitis. This was performed by Dr. Kai Crowell on 11/06/2023. The patient tolerated the procedure well and was brought back to the
medical surgical floor on telemetry. Invanz was ordered for 4 days total postoperatively as there was some IntraOp spillage. The patient's diet was advanced from clear liquid diet to low residue as her bowel function returned. She had left lower
extremity weakness on postop day 1 and ultrasound was ordered to rule out DVT. This was negative. Eventually her pain and weakness returned to normal throughout her stay. The patient was started on Lovenox for DVT prophylaxis however she refused
this. Teds and SCDs were in place and the patient was up and out of bed on postop day 1. On postop day 4 it was determined the patient can be discharged to home. She had minimal pain and had bowel function. All discharge instructions were
discussed with the patient including medication to levels and follow-up. All questions answered. She will follow up in the office with Dr. Crowell in 2 weeks.
Discharge Plan
-
Patient Disposition: Home (Routine Discharge)
Discharge Diagnosis/Procedures: hand-assisted robotic low anterior resection, lysis of adhesions, flexible sigmoidoscopy, TAP block
Diet: Low Residue
Activity: No strenuous activity
Additional Activity: No lifting over 10 pounds (gallon of milk)
Driving Restrictions: Not until seen by your Dr
Bathing Restrictions: OK to Shower
Wound Care: Allow glue to naturally fall off.
Instructions: Low Fiber Diet
Referrals:
Gonzalez Kwon MD [Family Provider] -
Kai Crowell MD [Active] - in two weeks
Additional Discharge Medication Instructions: Tylenol or ibuprofen as needed for pain. Maximum dose of Tylenol is 4000 mg in 24 hours. Maximum dose of ibuprofen is 3200 mg in 24 hours. Try to alternate your pain medication..
Prescriptions:
Continued
losartan 100 MG tablet
100 mg PO DAILY
Probiotic 20 billion cell Capsule
25,000 mmu cells PO DAILY@1030
ibuprofen 200 mg capsule
400 mg PO Q6HPRN PRN (Reason: mild pain)
Discontinued
ciprofloxacin HCl 500 mg Tablet
500 mg PO BID Qty: 56 0RF
amoxicillin-pot clavulanate 875-125 mg Tablet
1 tab PO Q12 Qty: 56 0RF
vancomycin 125 mg capsule
125 mg PO BID Qty: 56 0RF
Sutab 1.479-0.188- 0.225 gram Tablet
24 tab PO PER PKG DIR
Rx Instructions:
take as directed
metronidazole 500 mg Tablet
500 mg PO .
neomycin
500 mg PO .
Discharge Orders:
Discharge Patient (As Directed); Ordered 11/10/23
Ordered By: Chrissy Banerjee
Discharge Date and Time
Print Language: SWAZI
--- NOTE | 2023-11-10 11:23 | CM ---
Pt for discharge today
Has ride home with family member
Discussed IMM
Plan - home no needs
[2023-11-10 11:40] VITALS: BP 163/92
--- NOTE | 2023-11-10 12:00 | PTCARENOTE ---
Discharge vital signs BP was 163/93. Dr. Dominik napier. Okay with discharge.
--- NOTE | 2023-11-10 12:59 | W.PN.HOSP.TC ---
Today's Communication/Plan
-
sign off
Assessment / Plan
Assessment / Plan
1. s/p Hand assisted robotic Low anterior resection/Lysis of adhesion
h/o recurrent sigmoid diverticulitis
h/o royal-colonic abscess
-patient was managed medically initially with antibiotics for diverticulitis/abscess. Abscess was not amenable to drainage by IRAD.
-Repeat CT abdominal imaging showing some improvement although not complete resolution of abscess
-Patient was brought in electively for a low anterior resection by colorectal surgery
-Postoperatively patient has been doing good and has been started on low residue diet
-Patient have some blood in stool, hemoglobin remains relatively stable close to 9. Continue monitoring
2. History of alcohol use
-Last drink approximately 1 week back, low risk for withdrawal
-Discontinue further MSAS scoring
3. Hypocalcemia -resolved
-asymptomatic, Vit D 25 OH 48 - Normal
-Low ionized benjamin noted, if becomes symptomatic will treat with IV/Oral calcium
4. Acute blood loss anemia
-Post op change. transfuse if Hbg < 7
5. History of C. difficile colitis
-Patient had episode of cdiff colitis on 08/06
-Provide oral vancomycin 125mg BID with 7 days after taken off abx.
6. Essential HTN - uncontrolled
- declined to take IV hydralazine for BP control
- BP better in morning, advised to monitor BP at home and f/u with PCP if needed .
h/o R THR
h/o Vit D deficiency
DVT PPX - scd
Full code
Patient being discharged home today
Thank you for involving us in patient care.
Anticipated Discharge: Today
Subjective/Interval History
-
Date of Service: November 10, 2023
no new issues overnight
Objective Data
-
Labs:
Laboratory Results
11/10/23
04:50
WBC 8.0
Hgb 9.3 L
Hct 28.0 L
Plt Count 283
Sodium 139
Potassium 4.0
Chloride 103
Carbon Dioxide 27
BUN 6 L
Creatinine 0.5 L
Glucose 92
Calcium 8.6
Vital Signs:
Vital Signs
Temp Pulse Resp BP Pulse Ox
98.4 F 78 16 163/92 97
11/10/23 11:40 11/10/23 11:40 11/10/23 11:40 11/10/23 11:40 11/10/23 11:40
I&O
11/09/23 11/10/23 11/11/23
06:59 06:59 06:59
Intake Total 2059 / 2059 1440 / 1440
Output Total 200 / 200
Balance 1859 1440 / 1440
Review of Systems
-
Respiratory: Reports No Symptoms
Cardiac: Reports No Symptoms
Abdomen/GI: Reports No Symptoms
Physical Exam
-
General: Negative Respiratory Distress or Appears in Distress
HEENT: Negative Oxygen
GI: Soft, Nontender and Nondistended
Neuro: Awake, Alert, Oriented and No Motor Deficits
== END 2023-11-10 12:06 | disposition home or self-care (01) | DRG 330 ==
LOC: 2 SOUTH 12:32
PROVIDERS: Hospitalist; Physician Assistant; Registered Nurse; ADMITTING PHYSICIAN Surgery; FAMILY PHYSICIAN Internal Medicine; OTHER PHYSICIAN Hospitalist
PROC: 8E0W4CZ Robotic Assisted Procedure of Trunk Region, Percutaneous Endoscopic Approach (ICD-10-PCS; 2023-11-06)
PROC: 0DBN4ZG Excision of Sigmoid Colon, Percutaneous Endoscopic Approach, Hand-Assisted (ICD-10-PCS; 2023-11-06)
PROC: 0DBP4ZZ Excision of Rectum, Percutaneous Endoscopic Approach (ICD-10-PCS; 2023-11-06)
DX: K57.20 Diverticulitis of large intestine with perforation and abscess without bleeding (principal); D62 Acute posthemorrhagic anemia; K63.0 Abscess of intestine; E83.51 Hypocalcemia; I10 Essential (primary) hypertension; Q62.5 Duplication of ureter; K66.0 Peritoneal adhesions (postprocedural) (postinfection)
CPT/HCPCS: 88307; 36415; 71046; 80048; 80053; 82306; 82330; 82607; 83036; 83735; 83970; 85014; 85018; 85025; 85027; 85610; 85730; 86850; 86900; 86901; 93005; 93971; 97161; J1335

== ENCOUNTER 2025-01-03 15:58 | Emergency (ER) | payer OTHER, SELFPAY ==
[2025-01-03 16:01] VITALS: BP 179/100
--- NOTE | 2025-01-03 16:27 | EDRN ---
Dr. Leyva in room w/ pt at this time.
--- NOTE | 2025-01-03 16:55 | EDRN ---
OOB to BR at this time post xray
--- NOTE | 2025-01-03 16:58 | EDRN ---
Pt OOB to BR again at this time.
--- NOTE | 2025-01-03 17:08 | ED.GENMED ---
History of Present Illness
General
Chief Complaint: Skin Problem
Source: patient
Exam Limitations: none
Time Seen by Provider: 01/03/25 16:21
History of Present Illness
History of Present Illness:
Patient with generalized itching for years. Does wax and wane at times. More recently it has been more severe and unconsolable per the patient. No other symptoms. She has not noted any obvious lesions. She admits to significant excoriations.
She has been using Neosporin to a certain degree. Admits to 2 drinks of alcohol per day.
Past History
Past History
ED Past Medical History: Cancer (Skin cancer squamous), HTN, Hypercholesterolemia and Other (DDD, diverticulitis, osteoarthritis, UTI, Shingles, Back pain, C-diff,)
ED Past Surgical History: Gynecological (Tubal ), Orthopedic (right femur repair, Right Total hip replacement ) and Other (Left arm lump removed)
Social History
Tobacco: Former smoker
Alcohol: Daily ( Rum mixed with Diet soda in a 22oz glasses. 4 glasses)
Personal:
Living: with family
Employment: Employed
Family History
Family History: Other (Noncontributory)
Review of Systems
Review of Systems
All Other Systems: Not applicable
Constitutional: Denies fever
Respiratory: Reports no symptoms
Cardiac: Reports no symptoms
ABD/GI: Reports no symptoms
Phy Exam
Physical Exam
Physical Exam:
GENERAL: Alert and oriented. Nontoxic but clearly bothered and upset over the pruritus
EYE: Orbits normal.
NECK: Supple
CARDIAC: Regular rate and rhythm
LUNGS: No respiratory distress
ABDOMEN: Soft, without focal tenderness or distention
NEUROLOGICAL: Alert and oriented , grossly non-focal
SKIN: Warm and dry, areas of excoriations mostly 5 mm to 10 mm. Mostly on the legs diffusely on the back. Across the chest and arms. Interestingly the abdomen is relatively spared.
MUSCULOSKELETAL: No edema,no deformity.Good color
PSYCH: Normal and appropriate interaction.
Course
Orders/Labs/Results
Orders:
Orders
01/03/25 16:30
IV Insert/Care/Rem.- Treatment PRN
Dexamethasone Sod Phosphate [Decadron] 8 mg IV NOW STA
Famotidine [Pepcid] 20 mg IV NOW STA
01/03/25 16:31
CXR2 [CR Chest - 2 Views ] Urgent
Comment:
Reason For Exam: Pruritus. Check for adenopathy
01/03/25 17:09
Complete Blood Count/With Diff Urgent
Comprehensive Metabolic Panel Urgent
PT/INR [Prothrombin Time] Urgent
PTT Urgent
TSH Reflex To Free T4 Urgent
Abnormal Lab Results
01/03/25
17:09
WBC 11.6 H 10^3/uL
(4.8-10.8)
RBC 4.10 L 10^6/uL
(4.20-5.40)
MCH 32.4 H pg
(27.0-31.0)
Abs Immat Gran (auto) 0.1 H 10^3/uL
(0-0.05)
Absolute Neuts (auto) 9.6 H 10^3/uL
(1.4-6.5)
Absolute Lymphs (auto) 1.0 L 10^3/uL
(1.2-3.4)
Neutrophils % 83.0 H %
(42.2-75.2)
Lymphocytes % 8.4 L %
(20.5-51.1)
Sodium 131 L mmol/L
(135-145)
Carbon Dioxide 19 L mmol/L
(22-30)
BUN 5 L mg/dl
(7-17)
Glucose 111 H mg/dl
(70-99)
AST 45 H U/L
(14-36)
ALT 41 H U/L
(0-35)
Total Protein 8.3 H g/dl
(6.3-8.2)
01/03/25 17:09
01/03/25 17:09
Vital Signs
Initial and Last Documented VS:
Initial Vital Signs
Temp Pulse Resp BP Pulse Ox
98.4 F 104 20 179/100 98
01/03/25 16:01 01/03/25 16:01 01/03/25 16:01 01/03/25 16:01 01/03/25 16:01
Last Documented Vital Signs
Temp Pulse Resp BP Pulse Ox
98.4 F 82 16 178/83 98
01/03/25 16:01 01/03/25 18:05 01/03/25 18:05 01/03/25 18:05 01/03/25 18:05
MDM/Problems Addressed
Differential Diagnosis Includes:
Patient with diffuse excoriations that been going on for years intermittently. Now that none of them appear clinically infected. She is not toxic. She has no other obvious clinical explanation for this pruritus. Will check LFTs chest x-ray for
adenopathy thyroid. She clearly needs a H1 jaleel, H2 jaleel, steroids and dermatology follow-up.
*Radiology
Radiology exam reviewed: radiology read reviewed (No acute findings)
*Pulse Oximetry
SaO2: 98
Oxygen Mode of Delivery: Room air
Patient hypoxic: no
*Critical Care Note
Total Time (30-74mins, 75-104mins- exclusive of procedures): Not Applicable
Data Reviewed
Review of Other/Old Records Reveals: Labs, Records and Testing
Update Note
Update Note:
No serious etiology for her ongoing pruritus. No sign of secondary infection. H1 jaleel H2 jaleel, steroids and primary care and dermatology follow-up
ED Attending Note
-
Portions of this chart may have been created with voice recognition software.� Occasional wrong word or��sound alike� substitutions may have occurred due to the inherent limitations of voice recognition software.
Discharge Plan
Departure
Patient Disposition: Home (Routine Discharge)
Date of Disposition: 01/03/25
Time of Disposition: 18:23
Patient with high blood pressure during this ER visit?: Yes
Discharge Problem:
Ongoing pruritus, Very mild hyponatremia, Mild transaminitis, Multiple superficial wounds, Skin rash
Instructions: Skin Rash (DC), Wound Care (DC), BLOOD PRESSURE
Prescriptions:
New
prednisone 10 mg tablet
10 mg PO DAILY Qty: 45 0RF
Rx Instructions:
5 tablets a day 1. Then 1 less tablet every third day until gone
No Action
losartan 100 MG tablet
100 mg PO DAILY
Probiotic 20 billion cell Capsule
25,000 mmu cells PO DAILY@1030
ibuprofen 200 mg capsule
400 mg PO Q6HPRN PRN (Reason: mild pain)
vancomycin [Vancocin] 125 mg capsule
125 mg PO BID Qty: 14 0RF
Referrals:
UNKNOWN - PT DOES,NOT KNOW [Unknown Provider]
Activity Restrictions/Additional Instructions:
The prescription was sent to your pharmacy
Take a Pastora or Claritin daily
Take a Pepcid daily
Follow-up with your primary physician but you should also follow-up with dermatology
Interventions
Interventions:
*Risk Screen - Suicide Last Done: 01/03/25 17:15
*General Assessment Last Done: 01/03/25 17:15
*Neglect/Abuse Screening Last Done: 01/03/25 17:15
*ED- Fall Risk Assessment Last Done: 01/03/25 17:15
*ED COVID-19 Vaccine History Last Done: 01/03/25 17:15
*ED Influenza Vaccine History Last Done: 01/03/25 17:15
*Nursing Disposition Last Done: 01/03/25 18:33
ED-Skin Assessment Last Done: 01/03/25 17:15
Discharge Date and Time
Discharge Date/Time: 01/03/25 18:35
Print Language: CZECH
[2025-01-03] MEDS: DECADRON 8 MG IV (17:11)
[2025-01-03] MEDS: PEPCID 20 MG IV (17:12)
[2025-01-03 17:15] VITALS: BMI 27.1
--- NOTE | 2025-01-03 17:17 | EDRN ---
Pt just returned to [facility] at this time post IV meds.
[2025-01-03 17:20] VITALS: BP 187/86
[2025-01-03 17:21] LABS: Hematocrit 38.1 % (37.0-47.0); Hemoglobin 13.3 g/dL (12.0-16.0); Mean Corp Hgb Conc. 34.9 g/dL (33.0-37.0); Mean Corpuscular Volume 92.9 fL (81.0-99.0); Nucleated Red Blood Cells % 0 %; Platelet Count 308 10^3/uL (130-400); Red Cell Dist. Width 12.2 % (11.5-14.5)
[2025-01-03 17:36] LABS: ALT (SGPT) 41 U/L (0-35); AST (SGOT) 45 U/L (14-36); Albumin 4.9 g/dl (3.5-5.0); Alkaline Phosphatase 70 U/L (38-126); Blood Urea Nitrogen 5 mg/dl (7-17); Calcium 9.7 mg/dl (8.4-10.2); Carbon Dioxide 19 mmol/L (22-30); Chloride 98 mmol/L (98-107); Glucose 111 mg/dl (70-99); Potassium 4.3 mmol/L (3.5-5.1); Sodium 131 mmol/L (135-145); Total Protein 8.3 g/dl (6.3-8.2); eGFR > 60.00
[2025-01-03 17:40] LABS: PT 13.3 Sec (11.4-14.6)
[2025-01-03 18:00] LABS: APTT 26.9 Sec (23.4-35.0); INR 0.98
[2025-01-03 18:05] VITALS: BP 178/83
--- NOTE | 2025-01-03 18:15 | EDRN ---
Dr. Leyva in to speak to pt. Pt to be discharged home.
== END 2025-01-03 18:35 | disposition home or self-care (01) ==
LOC: EMR 15:58
PROVIDERS: EMERGENCY PHYSICIAN Emergency Medicine; FAMILY PHYSICIAN Internal Medicine
DX: L29.9 Pruritus, unspecified (principal); E87.1 Hypo-osmolality and hyponatremia; R74.01 Elevation of levels of liver transaminase levels; R21 Rash and other nonspecific skin eruption; I10 Essential (primary) hypertension; E78.00 Pure hypercholesterolemia, unspecified; M19.90 Unspecified osteoarthritis, unspecified site; Z85.828 Personal history of other malignant neoplasm of skin; Z87.440 Personal history of urinary (tract) infections; Z87.891 Personal history of nicotine dependence; Z96.641 Presence of right artificial hip joint
CPT/HCPCS: 99283; 96374; 96375; 71046; 80053; 84443; 85025; 85610; 85730